=== PATIENT | male | born 1960 | race Caucasian/White ===

== ENCOUNTER 2017-02-01 21:15 | Emergency (ER) | payer OTHER ==
[2017-02-01] MEDS ORDERED: NS 0.9% 1000 ML* 1,000 ML IV ONE (21:24)
[2017-02-01 21:49] LABS: Hematocrit 43 % (42-52); Hemoglobin 14.3 g/dl (14.0-18.0); Mean Corpuscular HGB Conc 33 g/dl (31-36); Mean Corpuscular Hemoglobin 31 pg (27-31); Mean Corpuscular Volume 93 fL (80-94); Mean Platelet Volume 10 um3 (7.4-10.4); Red Blood Count 4.68 10^6/ul (4.0-5.4); Red Cell Distribution Width 14 % (10.5-15); White Blood Count 9.3 10^3/ul (3.5-10.8)
--- NOTE | 2017-02-01 21:51 | ED ---
Jordyn Taveras Rebecca, scribed for Manpreet Durbin MD on 02/01/17 at 2134 . Complex/Multi-Sys Presentation - HPI Summary HPI Summary: Pt is a 56 y/o M BIBA who presents to ED c/o dehydration, dizziness and generalized weakness. Sx began today at 1900 after riding his bike about 24 miles without drinking any water. Currently is not in any pain, ranking it as 0/ 10. EMS administered 650 mL of fluids, which improved sx. Pt reports he is feeling improved upon arrival to the ED. States he last ate this morning. 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[employer], Still Present Severity Currently: None - No pain Location: Negative Aggravating Factor(s): Nothing Alleviating Factor(s): IV Fluids by EMD en route to [facility] Associated Signs And Symptoms: Positive: Dizziness, Weakness - Generalized, Other - Dehydration - Allergies/Home Medications Allergies/Adverse Reactions: Allergies Allergy/AdvReac Type Severity Reaction Status Date / Time No Known Allergies Allergy Verified 12/21/15 16:02 PMH/Surg Hx/FS Hx/Imm Hx Endocrine/Hematology History: Denies: Hx Diabetes Cardiovascular History: Reports: Hx Coronary Artery Disease, Hx Myocardial Infarction Denies: Hx Congestive Heart Failure, Hx Hypertension GI History: Reports: Hx Obstructive Bowel - Previous SBO History: Denies: Hx Dialysis, Hx Renal Disease Musculoskeletal History: Reports: Hx Arthritis - Was seeing a PT for shoulder issues, Hx Back Problems - Fell out of a tree as a child, back problems since, Other Musculoskeletal History - DJD, right wrist carpal tunnel Sensory History: Reports: Hx Contacts or Glasses Opthamlomology History: Reports: Hx Contacts or Glasses Psychiatric History: Reports: Hx Depression - Lives at home, states being very depressed and lonely. Asked for SW consult - Immunization History Date of Tetanus Vaccine: unknown Infectious Disease History: Denies: Traveled Outside the [place] in Last 30 Days - Family History Known Family History: Positive: Other Family History: Sister - Elder-Danlos syndrome - Social History Alcohol Use: None Hx Substance Use: No Substance Use Type: Reports: None Smoking Status (MU): Light Every Day Tobacco Smoker Type: Cigarettes Amount Used/How Often: 1/2 pack per day Have You Smoked in the Last Year: Yes Review of Systems Positive: Other - Dehydration, generalized weakness Neurological: Other - Dizziness All Other Systems Reviewed And Are Negative: Yes Physical Exam Triage Information Reviewed: Yes Vital Signs On Initial Exam: Initial Vitals Temp Pulse Resp Pulse Ox 98 F 74 16 95 02/01/17 21:24 02/01/17 21:24 02/01/17 21:24 02/01/17 21:24 Vital Signs Reviewed: Yes Appearance: Positive: Well-Appearing, No Pain Distress Skin: Positive: Warm Head/Face: Positive: Normal Head/Face Inspection Eyes: Positive: KEYANNA ENT: Positive: Hearing grossly normal Neck: Positive: Supple Respiratory/Lung Sounds: Positive: Clear to Auscultation, Breath Sounds Present Cardiovascular: Positive: RRR Abdomen Description: Positive: Nontender, Soft Bowel Sounds: Positive: Present Musculoskeletal: Positive: Strength/ROM Intact Neurological: Positive: Alert, Oriented to Person Place, Time Psychiatric: Positive: Affect/Mood Appropriate Diagnostics - Vital Signs Vital Signs Temp Pulse Resp Pulse Ox 02/01/17 21:24 98 F 74 16 95 - Laboratory Result Diagrams: 02/01/17 21:40 02/01/17 21:40 Lab Statement: Any lab studies that have been ordered have been reviewed, and results considered in the medical decision making process. - EKG 2143 Cardiac Rate: NL - bpm EKG Rhythm: Sinus Rhythm EKG Interpretation: No STEMI Re-Evaluation - Re-Evaluation First Eval Re-Evaluation Time: 21:40 Change: Unchanged Comment: Further discussed the patient's symptoms and presentation with him. Second Eval Re-Evaluation Time: 22:11 Change: Improved Comment: Pt is feeling much better. Complex Multi-Symp Course/Dx Assessment/Plan: Pt is a 56 y/o M BIBA who presents to ED c/o dehydration, dizziness and generalized weakness since 1900 today after riding his bike about 24 miles without drinking any water. Currently is not in any pain, ranking it as 0/10. EMS administered 650 mL of fluids, which improved sx. Pt reports he is feeling improved upon arrival to the ED. States he last ate this morning. Labs within normal limits. EKG reveals no acute findings. Pt will be D/C to home with Dx of dehydration. He understands and agrees. Patient's medications reviewed this visit. - Diagnoses Provider Diagnoses: Dehydration Discharge - Discharge Plan Condition: Improved Disposition: HOME Patient Education Materials: Dehydration (ED) Referrals: Osmany Garcia MD [Primary Care Provider] - 3 Days The documentation as recorded by the Jordyn no Rebecca accurately reflects the service I personally performed and the decisions made by me, Manpreet Durbin MD.
[2017-02-01 22:04] LABS: Albumin 4.2 g/dL (3.2-5.2); BUN/Creatinine Ratio 9.6 (8-20); Calcium 8.9 mg/dL (8.6-10.3); EGFR African American 106.4 (>60); EGFR Non-African American 82.7 (>60); Globulin 2.8 g/dL (2-4); Magnesium 2.1 mg/dL (1.9-2.7); Potassium 3.9 mmol/L (3.5-5.0); Total Bilirubin 0.6 mg/dL (0.2-1.0)
[2017-02-01 22:11] VITALS: BP 121/72
== END 2017-02-01 22:18 | disposition home or self-care (01) ==
LOC: ED 21:15
DX: E86.0 Dehydration (principal); R42 Dizziness and giddiness; R53.1 Weakness; F17.210 Nicotine dependence, cigarettes, uncomplicated
CPT/HCPCS: 36415; 80053; 82550; 83605; 83735; 85025; 93005; 99283

== ENCOUNTER 2017-06-19 19:17 | Emergency (ER) | payer OTHER ==
[2017-06-19] MEDS ORDERED: Permethrin 5% CREAM* 1 APPLIC TUBE TOPICAL ONE (20:12)
[2017-06-19] MEDS ORDERED: hydrOXYzine HCL TAB* 50 MG PO ONE (20:15)
--- NOTE | 2017-06-19 20:26 | ED ---
Elin Taveras Thomas, scribed for Manav Bey MD on 06/19/17 at 2006 . Skin Complaint - HPI Summary HPI Summary: The pt is a 57 y/o M presenting to the ED c/o diffuse pruritus for the last few days that is worse at night. He found bed bugs in his mattress. He has some rash throughout his body. Pt denies any pain. - History of Current Complaint Chief Complaint: EDRashSkinAbscess Time Seen by Provider: 06/19/17 19:58 Stated Complaint: RASH ALL OVER Hx Obtained From: Patient Onset/Duration: Started Days Ago - last few days, Still Present Timing: Constant Current Severity: Moderate Pain Intensity: 0 Pain Scale Used: 0-10 Numeric Skin Location: Diffuse Character: Pruritus Associated Signs & Symptoms: Negative Related History: Other: - Patient discovered bed bugs in his mattress. - Allergy/Home Medications Allergies/Adverse Reactions: Allergies Allergy/AdvReac Type Severity Reaction Status Date / Time No Known Allergies Allergy Verified 06/19/17 19:39 PMH/Surg Hx/FS Hx/Imm Hx Previously Healthy: No Endocrine/Hematology History: Denies: Hx Diabetes Cardiovascular History: Reports: Hx Coronary Artery Disease, Hx Myocardial Infarction Denies: Hx Congestive Heart Failure, Hx Hypertension GI History: Reports: Hx Obstructive Bowel - Previous SBO History: Denies: Hx Dialysis, Hx Renal Disease Musculoskeletal History: Reports: Hx Arthritis - Was seeing a PT for shoulder issues, Hx Back Problems - Fell out of a tree as a child, back problems since, Other Musculoskeletal History - DJD, right wrist carpal tunnel Sensory History: Reports: Hx Contacts or Glasses Opthamlomology History: Reports: Hx Contacts or Glasses Psychiatric History: Reports: Hx Depression - Lives at home, states being very depressed and lonely. Asked for SW consult - Immunization History Date of Tetanus Vaccine: unknown Infectious Disease History: No Infectious Disease History: Denies: Traveled Outside the [place] in Last 30 Days - Family History Known Family History: Positive: Other - Elder-Danlos syndrome, ezcema - Social History Alcohol Use: None Hx Substance Use: No Substance Use Type: Reports: None Smoking Status (MU): Light Every Day Tobacco Smoker Type: Cigarettes Amount Used/How Often: 1/2 pack per day Have You Smoked in the Last Year: Yes Review of Systems Negative: Other - pain Positive: Rash, Other - Pruritus All Other Systems Reviewed And Are Negative: Yes Physical Exam - Summary Physical Exam Summary: VITAL SIGNS: Reviewed. GENERAL: Patient is a well-developed and nourished male who is lying comfortable in the stretcher. Patient is not in any acute respiratory distress. HEAD AND FACE: No signs of trauma. No ecchymosis, hematomas or skull depressions. No sinus tenderness. EYES: PERRLA, EOMI x 2, No injected conjunctiva, no nystagmus. EARS: Hearing grossly intact. Ear canals and tympanic membranes are within normal limits. MOUTH: Oropharynx within normal limits. NECK: Supple, trachea is midline, no adenopathy, no JVD, no carotid bruit, no c- spine tenderness, neck with full ROM. CHEST: Symmetric, no tenderness at palpation LUNGS: Clear to auscultation bilaterally. No wheezing or crackles. CVS: Regular rate and rhythm, S1 and S2 present, no murmurs or gallops appreciated. ABDOMEN: Soft, non-tender. No signs of distention. No rebound no guarding, and no masses palpated. Bowel sounds are normal. EXTREMITIES: FROM in all major joints, no edema, no cyanosis or clubbing. NEURO: Alert and oriented x 3. No acute neurological deficits. Speech is normal and follows commands. SKIN: Dry and warm. There is a fine rash over the surface of the extensors more than the flexors. The primary lesion is burrows and furrows. There are multiple erythematous papules. Triage Information Reviewed: Yes Vital Signs On Initial Exam: Initial Vitals Temp Pulse Resp BP Pulse Ox 97.7 F 63 18 132/94 97 06/19/17 19:34 06/19/17 19:34 06/19/17 19:34 06/19/17 19:34 06/19/17 19:34 Vital Signs Reviewed: Yes Diagnostics - Vital Signs Vital Signs Temp Pulse Resp BP Pulse Ox 06/19/17 19:34 97.7 F 63 18 132/94 97 - Laboratory Lab Statement: Any lab studies that have been ordered have been reviewed, and results considered in the medical decision making process. Course/Dx - Course Assessment/Plan: The pt is a 57 y/o M c/o diffuse pruritus for the last few days that is worse at night. He found bed bugs in his mattress. The patient is diagnosed with scabies. The patient is instructed to follow up with primary care if symptoms are not resolved with several applications of hydroxyzine. He was instructed to change his sheets. - Diagnoses Provider Diagnoses: Scabies Discharge - Discharge Plan Condition: Stable Disposition: HOME Prescriptions: hydrOXYzine HCL TAB* [Atarax TAB 50 MG *] 50 mg PO TID PRN #20 tab PRN Reason: Itching Patient Education Materials: Scabies (ED) Referrals: Osmany Garcia MD [Primary Care Provider] - Additional Instructions: Apply the cream all over your entire body except for your eyes, ears, nose, and mouth. Leave it on for 14-16 hours and then take a shower. Change your sheets. You may need more than one application of the cream for resolution of symptoms. If you symptoms do not resolve after several applications, you will need to get into contact with your private medical doctor and schedule an appointment. The documentation as recorded by the Elin no Thomas accurately reflects the service I personally performed and the decisions made by me, Manav Bey MD.
[2017-06-19 21:26] VITALS: BP 138/75
== END 2017-06-19 21:05 | disposition home or self-care (01) ==
LOC: ED 19:17
DX: B86 Scabies (principal); F32.9 Major depressive disorder, single episode, unspecified; M19.90 Unspecified osteoarthritis, unspecified site; F17.210 Nicotine dependence, cigarettes, uncomplicated; I25.10 Atherosclerotic heart disease of native coronary artery without angina pectoris; I21.9 Acute myocardial infarction, unspecified
CPT/HCPCS: 99282; A9270-GY

== ENCOUNTER 2017-07-06 15:59 | Emergency (ER) | payer OTHER ==
[2017-07-06] MEDS ORDERED: Permethrin 5% CREAM* 1 APPLIC TUBE TOPICAL ONE (17:37)
--- NOTE | 2017-07-06 17:39 | ED ---
Skin Complaint - HPI Summary HPI Summary: 57M presents with rash for past two weeks. he was diagnosed with scabies and states that he needs another treatment. He states the area is itchy and has not taken anything for it. He denies any history of ezcema. he denies any new products. no fever. no chest pain or SOB. states was re-exposed to scabies. - History of Current Complaint Chief Complaint: EDRashSkinAbscess Time Seen by Provider: 07/06/17 17:19 Stated Complaint: RASH Pain Intensity: 0 - Allergy/Home Medications Allergies/Adverse Reactions: Allergies Allergy/AdvReac Type Severity Reaction Status Date / Time No Known Allergies Allergy Verified 07/06/17 16:15 PMH/Surg Hx/FS Hx/Imm Hx Endocrine/Hematology History: Denies: Hx Diabetes Cardiovascular History: Reports: Hx Coronary Artery Disease, Hx Myocardial Infarction Denies: Hx Congestive Heart Failure, Hx Hypertension GI History: Reports: Hx Obstructive Bowel - Previous SBO History: Denies: Hx Dialysis, Hx Renal Disease Musculoskeletal History: Reports: Hx Arthritis - Was seeing a PT for shoulder issues, Hx Back Problems - Fell out of a tree as a child, back problems since, Other Musculoskeletal History - DJD, right wrist carpal tunnel Sensory History: Reports: Hx Contacts or Glasses Opthamlomology History: Reports: Hx Contacts or Glasses Psychiatric History: Reports: Hx Depression - Lives at home, states being very depressed and lonely. Asked for SW consult - Immunization History Date of Tetanus Vaccine: unknown Infectious Disease History: Unable to Obtain/Confirm Infectious Disease History: Denies: Traveled Outside the [place] in Last 30 Days - Family History Known Family History: Positive: None, Other - Elder-Danlos syndrome, ezcema Family History: Sister - Elder-Danlos syndrome - Social History Alcohol Use: None Hx Substance Use: No Substance Use Type: Reports: None Smoking Status (MU): Light Every Day Tobacco Smoker Type: Cigarettes Amount Used/How Often: 1/2 pack per day Have You Smoked in the Last Year: Yes Review of Systems Negative: Fever Negative: Chest Pain Negative: Shortness Of Breath Positive: Rash All Other Systems Reviewed And Are Negative: Yes Physical Exam Triage Information Reviewed: Yes Vital Signs On Initial Exam: Initial Vitals Temp Pulse Resp BP Pulse Ox 97.7 F 62 18 146/88 97 07/06/17 16:10 07/06/17 16:10 07/06/17 16:10 07/06/17 16:10 07/06/17 16:10 Vital Signs Reviewed: Yes Appearance: Positive: Well-Appearing Skin: Positive: Other - erythematous papular rash present some burrows present Head/Face: Positive: Normal Head/Face Inspection Eyes: Positive: Normal, Conjunctiva Clear Respiratory/Lung Sounds: Positive: Clear to Auscultation, Breath Sounds Present Cardiovascular: Positive: Normal, RRR Musculoskeletal: Positive: Normal Neurological: Positive: Normal Diagnostics - Vital Signs Vital Signs Temp Pulse Resp BP Pulse Ox 07/06/17 16:10 97.7 F 62 18 146/88 97 - Laboratory Lab Statement: Any lab studies that have been ordered have been reviewed, and results considered in the medical decision making process. Course/Dx - Course Course Of Treatment: 57M presents with rash for past two weeks. he was diagnosed with scabies and states that he needs another treatment. He states the area is itchy and has not taken anything for it. He denies any history of ezcema. he denies any new products. no fever. no chest pain or SOB. states was re-exposed to scabies. on exam has erythematous papular rash present some burrows present. will treat with permethrin and gave dose can repeat in 14 days. patient understand and agrees with plan. - Differential Diagnoses - Skin Complaint Differential Diagnoses: Contact Dermatitis, Eczema, Scabies - Diagnoses Provider Diagnoses: Scabies Discharge - Discharge Plan Condition: Good Disposition: HOME Prescriptions: Permethrin 5% CREAM* 1 applic TOPICAL SEE INSTRUCTIONS #1 tube Patient Education Materials: Scabies (ED) Referrals: Osmany Garcia MD [Primary Care Provider] - Additional Instructions: Thoroughly massage cream (30 g for average adult) from head to soles of feet; leave on for 8 to 14 hours before removing (shower or bath); also apply on the hairline, neck, scalp, restoration, and forehead may repeat if living mites are observed 14 days after first treatment: second script sent to pharmacy if need to be repeated in 14 days Follow up with primary Return to ED if develop any new or worsening symptoms
[2017-07-06 18:24] VITALS: BP 129/87
== END 2017-07-06 18:25 | disposition home or self-care (01) ==
LOC: ED 15:59
DX: B86 Scabies (principal); I25.10 Atherosclerotic heart disease of native coronary artery without angina pectoris; I21.9 Acute myocardial infarction, unspecified; F32.9 Major depressive disorder, single episode, unspecified; F17.210 Nicotine dependence, cigarettes, uncomplicated
CPT/HCPCS: 99282; A9270-GY

== ENCOUNTER 2017-09-04 21:18 | Emergency (ER) | payer OTHER ==
--- OUTSIDE RECORDS SUMMARY | 2017-09-04 21:34 | XMS REPORT ---
:1960 External Reference #:[id number] Author Organization [facility] Address [address] [address] Phone [phone] Care Team Providers Name Role Phone Gloria Cabral MD Care Team Information Mixing Picker Tender Unavailable Osmany Garcia MD Primary Care Physician Unavailable Payers Type Date Identification Numbers Payment Provider Subscriber Commercial Effective: Policy Number: [id number] Alconswetha Flores 2016 Group Name: [id number] [address] PayID: [id number] [place] [address] Medigap Part B Expires: 2016 Policy Number: [id number] Medicaid Bry Flores Group Name: 1 1 [address] PayID: [id number] [place] [address] Problems Date Description Provider Status Onset: 06/26/2016 Closed fracture of lumbar vertebra Osmany Garcia M.D. Active without spinal cord injury Onset: 06/26/2016 Low back pain Osmany Garcia M.D. Active Onset: 06/26/2016 Carpal tunnel syndrome of right wrist Osmany Garcia M.D. Active Onset: 07/03/2016 Anxiety state Osmany Garcia M.D. Active Onset: 07/03/2016 Chronic obstructive lung disease Osmany Garcia M.D. Active Family History Date Family Member(s) Problem(s) Comments General Heart Disease General Diabetes Father 73 he is in [place] in [place], he had tumor in the brain. he is an alcoholic. he has nothing to do with him. Mother mom is 70. she has Aodm . Third Brother three brothrs and one sister. sister has Erhler Danlos syndrome. she has seizures. One of the brother has diabetes. no cancer in the familly. Grandfather all . doesnot know much about them Social History Type Date Description Comments Marital Status Single Lives With Negative For Alone Occupation Unemployed Cigarette Use currently smokes 1/2 Pack Daily ETOH Use Has consumed alcohol in the past Smoking Patient is a current smoker, smokes 1 PPD - 35 years every day Daily Caffeine Consumes on average 3 cups of regular coffee per day Exercise Type/Frequency Exercises sporadically Exercise Type/Frequency rides his bike a lot mostly in warmer days Allergies, Adverse Reactions, Alerts Date Description Reaction Status Severity Comments 08/03/2009 NKDA active Medications Medication Date Status Form Strength Qnty SIG Indications Ordering Provider Hydroxyzine HCL 08/05/ Active Tablets 50mg 60tabs three B86 Amelia 2018 times/day Rodríguez, as needed DAIRY CONSULTANT for itching Elimite 08/05/ Active Cream 5% 60gm apply from Amelia 2018 head to Rodríguez, feet and DAIRY CONSULTANT wash off after 12-14 hours Nicotine 07/29/ Active Gum 2mg 50unit 1 piece of F17.210 Zsofia Polacrilex 2018 s gum q1-2hr Diallo MILEAGE CLERK Naproxen 07/29/ Active Tablets 500mg 120tab take one M48.00 Zsofia 2018 s tablet by Diallo, mouth MILEAGE CLERK twice a day with food as needed Vitamin D3 09/03/ Active Tablets 1000Unit 180tab take two Zsofia 2016 s tablets by Diallo, mouth MILEAGE CLERK every day Gabapentin / Active Capsules 300mg 90caps 1 by mouth M54.5 Zsofia 0000 three Diallo, times a MILEAGE CLERK day as needed Cyclobenzaprine / Active Tablets 10mg one by Unknown HCL 0000 mouth two times a day as needed spasm Nicotine 04/15/ Hx Gum 2mg 50unit 1 piece of F17.210 Zsofia Polacrilex 2016 - s gum q1-2hr Diallo, 07/29/ MILEAGE CLERK 2018 Escitalopram 09/03/ Hx Tablets 5mg 60tabs take 1 tab F41.9 Zsofia Oxalate 2017 - po daily Diallo, 09/03/ for one MILEAGE CLERK 2016 week then increase to 2 tabs daily Sertraline HCL 12/20/ Hx Tablets 25mg 60tabs Take Two F41.9 Zsofia 2016 - Tablets By Diallo, 05/20/ Mouth MILEAGE CLERK 2016 Every Day Escitalopram 07/03/ Hx Tablets 5mg 30tabs 1 by mouth F41.9 Osmany Oxalate 2015 - every day Pachikara 07/08/ x 1 week , M.D. 2015 then 2 tab daily Ibuprofen / Hx Tablets 600mg not using Unknown 0000 - prn 2016 Naproxen / Hx Not Unknown 0000 - usingAs 2016 Tramadol HCL / Hx Tablets 50mg 30tabs 1 tab 12h Osmany 0000 - as needed Lisaikara 12/10/ , Zachariah 2016 Immunizations CPT Code Status Date Vaccine Reaction Lot # [id number] Given 05/20/2017 Influenza Virus Vaccine, no immediate reaction, [id number] Quadrivalent, Split, pt tolerated well Preservative Free 32282 Given 04/15/2017 Influenza Virus Vaccine, [id number] Quadrivalent, Split, Preservative Free 51377 Given 02/04/2017 Pneumococcal Conjugate no immediate reaction [id number] Vaccine 13 Valent For noted and pt tolerated Intramuscular Use well Vital Signs Date Vital Result Comment 09/02/2017 Weight 150.00 lb Heart Rate 59 /min BP Systolic Sitting 122 mmHg BP Diastolic Sitting 78 mmHg O2 % BldC Oximetry 96 % 08/05/2017 Weight 150.00 lb Heart Rate 65 /min BP Systolic Sitting 130 mmHg BP Diastolic Sitting 71 mmHg O2 % BldC Oximetry 97 % 07/29/2017 Height 68.50 inches 5'8.50" Weight 157.00 lb Heart Rate 68 /min BP Systolic Sitting 134 mmHg BP Diastolic Sitting 78 mmHg Respiratory Rate 15 /min O2 % BldC Oximetry 97 % BMI (Body Mass Index) 23.5 kg/m2 05/20/2017 Height 68.50 inches 5'8.50" Weight 156.25 lb Heart Rate 66 /min BP Systolic 128 mmHg BP Diastolic 76 mmHg Body Temperature 98.3 F O2 % BldC Oximetry 98 % BMI (Body Mass Index) 23.4 kg/m2 04/15/2017 Weight 154.12 lb Heart Rate 74 /min BP Systolic Sitting 110 mmHg BP Diastolic Sitting 60 mmHg Body Temperature 97.7 F O2 % BldC Oximetry 97 % 02/04/2017 Weight 134.50 lb 02/04/2017 Weight 149.00 lb with shoes Heart Rate 72 /min BP Systolic 106 mmHg BP Diastolic 60 mmHg O2 % BldC Oximetry 97 % 12/10/2016 BP Systolic Sitting 128 mmHg BP Diastolic Sitting 64 mmHg 12/10/2016 Weight 152.50 lb Heart Rate 67 /min BP Systolic Sitting 152 mmHg BP Diastolic Sitting 80 mmHg Body Temperature 97.5 F O2 % BldC Oximetry 98 % 09/03/2016 Weight 138.12 lb Heart Rate 54 /min BP Systolic Sitting 142 mmHg BP Diastolic Sitting 80 mmHg Body Temperature 98.2 F O2 % BldC Oximetry 97 % 07/03/2016 Height 68.25 inches 5'8.25" Weight 140.00 lb Heart Rate 94 /min BP Systolic Sitting 108 mmHg BP Diastolic Sitting 62 mmHg Body Temperature 98.5 F O2 % BldC Oximetry 98 % BMI (Body Mass Index) 21.1 kg/m2 06/26/2016 Height 68.25 inches 5'8.25" Weight 143.25 lb Heart Rate 76 /min BP Systolic Sitting 170 mmHg BP Diastolic Sitting 82 mmHg Body Temperature 98.5 F O2 % BldC Oximetry 98 % BMI (Body Mass Index) 21.6 kg/m2 08/03/2009 Height 70.5 inches 5'10.50" Weight 145.00 lb Heart Rate 76 /min BP Systolic Sitting 118 mmHg BP Diastolic Sitting 78 mmHg BMI (Body Mass Index) 20.5 kg/m2 Results Test Date Test Result H/L Range Note Lipid Profile (Trig/Chol/HDL) 05/20/2017 Triglycerides 99 mg/dL 1 Cholesterol 182 mg/dL 2 HDL Cholesterol 33.6 mg/dL 3 LDL Cholesterol 129 mg/dL 4 Laboratory test finding 05/20/2017 Glucose 83 mg/dL 70-100 Comp Metabolic Panel 02/01/2017 Sodium 135 mmol/L 133-145 Potassium 3.9 mmol/L 3.5-5.0 Chloride 103 mmol/L 101-111 Co2 Carbon Dioxide 27 mmol/L 22-32 Anion Gap 5 mmol/L 2-11 Glucose 78 mg/dL 70-100 Blood Urea Nitrogen 9 mg/dL 6-24 Creatinine 0.94 mg/dL 0.67-1.17 BUN/Creatinine Ratio 9.6 8-20 Calcium 8.9 mg/dL 8.6-10.3 Total Protein 7.0 g/dL 6.4-8.9 Albumin 4.2 g/dL 3.2-5.2 Globulin 2.8 g/dL 2-4 Albumin/Globulin Ratio 1.5 1-3 Total Bilirubin 0.60 mg/dL 0.2-1.0 Alkaline Phosphatase 82 U/L 34-104 Alt 17 U/L 7-52 Ast 24 U/L 13-39 Egfr Non- 82.7 >60 Egfr 106.4 >60 5 Laboratory test finding 02/01/2017 Magnesium 2.1 mg/dL 1.9-2.7 Creatine Kinase(CK) 131 U/L 10-223 Laboratory test finding 02/01/2017 Lactic Acid 0.8 mmol/L 0.5-2.0 6 CBC Auto Diff 02/01/2017 White Blood Count 9.3 10^3/uL 3.5-10.8 Red Blood Count 4.68 10^6/uL 4.0-5.4 Hemoglobin 14.3 g/dL 14.0-18.0 Hematocrit 43 % 42-52 Mean Corpuscular Volume 93 fL 80-94 Mean Corpuscular Hemoglobin 31 pg 27-31 Mean Corpuscular HGB Conc 33 g/dL 31-36 Red Cell Distribution Width 14 % 10.5-15 Platelet Count 166 10^3/uL 150-450 Mean Platelet Volume 10 um3 7.4-10.4 Abs Neutrophils 5.7 10^3/uL 1.5-7.7 Abs Lymphocytes 2.5 10^3/uL 1.0-4.8 Abs Monocytes 0.8 10^3/uL 0-0.8 Abs Eosinophils 0.1 10^3/uL 0-0.6 Abs Basophils 0.1 10^3/uL 0-0.2 Abs Nucleated RBC 0 10^3/uL Granulocyte % 61.8 % 38-83 Lymphocyte % 26.7 % 25-47 Monocyte % 8.5 % 1-9 Eosinophil % 1.5 % 0-6 Basophil % 1.5 % 0-2 Nucleated Red Blood Cells % 0 Lipid Profile (Trig/Chol/HDL) 06/26/2016 Triglycerides 49 mg/dL 7 Cholesterol 156 mg/dL 8 HDL Cholesterol 41.7 mg/dL 9 LDL Cholesterol 105 mg/dL 10 Laboratory test finding 06/26/2016 PSA Screening 0.220 ng/mL 0-4.000 11 Comp Metabolic Panel 06/26/2016 Sodium 137 mmol/L 133-145 Potassium 4.1 mmol/L 3.5-5.0 Chloride 104 mmol/L 101-111 Co2 Carbon Dioxide 26 mmol/L 22-32 Anion Gap 7 mmol/L 2-11 Glucose 73 mg/dL 70-100 Blood Urea Nitrogen 8 mg/dL 6-24 Creatinine 1.05 mg/dL 0.67-1.17 BUN/Creatinine Ratio 7.6 Low 8-20 Calcium 9.7 mg/dL 8.6-10.3 Total Protein 7.4 g/dL 6.4-8.9 Albumin 4.5 g/dL 3.2-5.2 Globulin 2.9 g/dL 2-4 Albumin/Globulin Ratio 1.6 1-3 Total Bilirubin 0.70 mg/dL 0.2-1.0 Alkaline Phosphatase 82 U/L 34-104 Alt 14 U/L 7-52 Ast 26 U/L 13-39 Egfr Non- 72.8 >60 Egfr 93.6 >60 12 Laboratory test finding 06/26/2016 Vitamin D Total 25(Oh) 26.9 ng/mL Low 30-50 1 Desirable: <150 Borderline High: 150-199 High: 200-499 Very High: >500 2 Desirable: <200 Borderline High: 200-239 High: >239 3 Low: <40 Desirable: 40-60 High: >60 4 Desirable: <100 Near Optimal: 100-129 Borderline High: 130-159 High: 160-189 Very High: >189 5 Because ethnic data is not always readily available, this report includes an eGFR for both -Americans and non- Americans. The National Kidney Disease Education Program (NKDEP) does not endorse the use of the MDRD equation for patients that are not between the ages of 18 and 70, are , have extremes of body size, muscle mass, or nutritional status, or are non- or non-. According to the National Kidney Foundation, irrespective of diagnosis, the stage of the disease is based on the level of kidney function: Stage Description GFR(mL/min/1.73 m(2)) 1 Kidney damage with normal or decreased GFR 90 2 Kidney damage with mild decrease in GFR 60-89 3 Moderate decrease in GFR 30-59 4 Severe decrease in GFR 15-29 5 Kidney failure <15 (or dialysis) 6 [facility] Severe Sepsis and Septic Shock Management Bundle Measure requires all lactic acids initially measuring >2.0 mmol/L be repeated. 7 Desirable <150 Borderline high 150-199 High 200-499 Very High >500 8 Desirable <200 Borderline high 200-239 High >239 9 Low <40 Desirable: 40-60 High: >60 10 Desirable: <100 mg/dL Near Optimal: 100-129 mg/dL Borderline High: 130-159 mg/dL High: 160-189 mg/dL Very High: >189 mg/dL 11 Serum levels of PSA measured using the [employer] DXI Hybritech immunoassay should not be interpreted as absolute evidence of the presence or absence of disease. The PSA value should be used in conjunction with other pertinent clinical diagnostic procedures. A PSA value in the range of 0.1 to 0.6 ng/ml is indeterminate if being used as an indicator of recurrent or residual disease. The values obtained with different assay methods or kits cannot be used interchangeably. 12 Because ethnic data is not always readily available, this report includes an eGFR for both -Americans and non- Americans. The National Kidney Disease Education Program (NKDEP) does not endorse the use of the MDRD equation for patients that are not between the ages of 18 and 70, are , have extremes of body size, muscle mass, or nutritional status, or are non- or non-. According to the National Kidney Foundation, irrespective of diagnosis, the stage of the disease is based on the level of kidney function: Stage Description GFR(mL/min/1.73 m(2)) 1 Kidney damage with normal or decreased GFR 90 2 Kidney damage with mild decrease in GFR 60-89 3 Moderate decrease in GFR 30-59 4 Severe decrease in GFR 15-29 5 Kidney failure <15 (or dialysis) Procedures Date CPT Code Description Status 11/11/2012 27706 Nerve Conduction 03-04 Studies Completed 11/11/2012 90280 Needle Electromyography Complete, Five Or More Muscles Completed Studied Encounters Type Date Location Provider CPT E/M Dx Office Visit 08/12/2017 9:20a [facility] [place] [address] L23.9 I83.12 Office Visit 08/05/2017 10:50a [facility] - Amelia Marcos, DAIRY CONSULTANT [address] Office Visit 07/29/2017 10:20a [facility] - Zsofia Diallo, MILEAGE CLERK [address] M48.00 F17.210 M54.9 Office Visit 05/20/2017 9:00a [facility] Zsofia Diallo, [facility] [address] F17.210 [address] J44.9 F41.9 Z23 Office Visit 04/15/2017 8:00a [facility] - Zsofia Diallo, MILEAGE CLERK [address] F41.9 M54.5 M25.511 F17.210 Z23 Office Visit 02/04/2017 10:20a [facility] - Zsofia Diallo, MILEAGE CLERK [address] J44.9 F17.210 Z23 Office Visit 12/10/2016 1:30p [facility] - Zsofia Diallo, MILEAGE CLERK [address] J44.9 F17.210 Z13.220 Z13.1 M54.5 Office Visit 09/03/2016 3:30p [facility] - Zsofia Diallo, MILEAGE CLERK [address] M54.5 M25.511 J44.9 F17.210 Office Visit 07/03/2016 8:40a [facility] Osmany Garcia M.D. [address] M54.5 Medicine - [address] F41.9 J44.9 F17.210 Office Visit 06/26/2016 1:00p [facility] Osmany Garcia, [address] S32.[address]A Medicine - [address] MRaymondDRaymond M54.5 G56.01 Z00.00 Z13.220 Z12.5 Z13.1 Office Visit 11/25/2014 2:43p [facility], Mik Mercedes, [address]640 560.9 Hospitalists Zachariah 787.01 Office Visit 11/24/2014 2:43p [facility], Mik Mercedes, 04173 560.9 Hospitalists M.D. 787.01 Office Visit 11/23/2014 11:41a [facility],AGUSTINA Hawley [address]12 560.2 Hospitalists Office Visit 11/23/2014 2:42p [facility],mihsa Herman M.D. 05011 560.9 Hospitalists 787.01 Office Visit 11/15/2014 10:07a [facility],misha Arango, 11309 560.9 Hospitalists Zachariah 724.5 Office Visit 03/05/2011 3:30p [facility] Rodney Serna, [address] 805.4 Of [facility] Zachariah Office Visit 08/03/2009 10:00a DO Not Use [facility] Mandujanohavan, [address]23 719.41 Nathalie Soni V70.0 Plan of Care Future Appointment(s):10/14/2017 10:00 am - SHAZIA Sanchez at [facility] - [address]09/02/2017 - TINY SanchezPM48.00 Spinal stenosis, site unspecifiedComments:Please continue with PTWe discussed good postureMay take antiinflammatory pain medication as needed.Follow up:6 weeks for smoking cessation.F17.210 Nicotine dependence, cigarettes, uncomplicatedComments:We discussed to try getting completely off cigarettes in about a month.Since you are still under stress I recommend to try to taper by 1 cigarette every week.
[2017-09-04 22:41] LABS: ABS Basophils 0 10^3/ul (0-0.2); ABS Eosinophils 0.2 10^3/ul (0-0.6); ABS Lymphocytes 2.2 10^3/ul (1.0-4.8); ABS Monocytes 0.9 10^3/ul (0-0.8); ABS Neutrophils 6.1 10^3/ul (1.5-7.7); ABS Nucleated RBC 0 10^3/ul; Eosinophil % 2.4 % (0-6); Hematocrit 45 % (42-52); Hemoglobin 15.6 g/dl (14.0-18.0); Lymphocyte % 23.3 % (25-47); Mean Corpuscular HGB Conc 35 g/dl (31-36); Mean Corpuscular Hemoglobin 32 pg (27-31); Mean Corpuscular Volume 90 fL (80-94); Mean Platelet Volume 9 um3 (7.4-10.4); Nucleated Red Blood Cells % 0.1; Platelet Count 182 10^3/ul (150-450); Red Blood Count 4.95 10^6/ul (4.0-5.4); Red Cell Distribution Width 13 % (10.5-15); White Blood Count 9.4 10^3/ul (3.5-10.8)
[2017-09-04 22:58] LABS: EGFR Non-African American 83.5 (>60)
[2017-09-05 07:42] VITALS: BP 131/69
--- NOTE | 2017-09-06 22:45 | ED ---
Miguel A Taveras Jennifer scribed for Bradley Barnett MD on 09/04/17 at 2310 . Psychiatric Complaint - HPI Summary HPI Summary: The patient is a 57 year male who presents to the ED with anxiety and depression for a couple of years. He explains that he doesnt feel safe where he is staying because there are a lot of drugs and he thinks someone may hurt him. The patient has been living in a drug house for a couple of months. He denies suicidal ideation or hearing voices. The patient came to the ED because he wanted to speak with a social media editor. - History Of Current Complaint Chief Complaint: EDGeneral Time Seen by Provider: 09/04/17 21:45 Hx Obtained From: Patient Onset/Duration: Gradual Onset, Still Present - Couple years Timing: Constant Severity Initially: Mild Severity Currently: Mild Character: Depressed, Anxious Aggravating Factor(s): Nothing Alleviating Factor(s): Nothing Associated Signs And Symptoms: Negative: Hallucinating Has Suicidal: Denies: Thoughts, With A Plan Has Homicidal: Denies: Thoughts, With A Plan - Allergies/Home Medications Allergies/Adverse Reactions: Allergies Allergy/AdvReac Type Severity Reaction Status Date / Time No Known Allergies Allergy Verified 07/06/17 16:15 PMH/Surg Hx/FS Hx/Imm Hx Endocrine/Hematology History: Denies: Hx Diabetes Cardiovascular History: Reports: Hx Coronary Artery Disease, Hx Myocardial Infarction Denies: Hx Congestive Heart Failure, Hx Hypertension GI History: Reports: Hx Obstructive Bowel - Previous SBO History: Denies: Hx Dialysis, Hx Renal Disease Musculoskeletal History: Reports: Hx Arthritis - Was seeing a PT for shoulder issues, Hx Back Problems - Fell out of a tree as a child, back problems since, Other Musculoskeletal History - DJD, right wrist carpal tunnel Sensory History: Reports: Hx Contacts or Glasses Opthamlomology History: Reports: Hx Contacts or Glasses Psychiatric History: Reports: Hx Depression - Lives at home, states being very depressed and lonely. Asked for SW consult - Immunization History Date of Tetanus Vaccine: unknown Infectious Disease History: No Infectious Disease History: Denies: Traveled Outside the [place] in Last 30 Days - Family History Known Family History: Positive: Other - Elder-Danlos syndrome, ezcema Family History: Sister - Elder-Danlos syndrome - Social History Alcohol Use: None Hx Substance Use: No Substance Use Type: Reports: None Smoking Status (MU): Light Every Day Tobacco Smoker Type: Cigarettes Amount Used/How Often: 1/2 pack per day Have You Smoked in the Last Year: Yes Review of Systems Negative: Fever, Chills, Skin Diaphoresis Negative: Erythema Negative: Sore Throat Negative: Chest Pain Negative: Shortness Of Breath, Cough Negative: Abdominal Pain, Vomiting, Nausea Negative: dysuria, hematuria Negative: Myalgia, Edema Negative: Rash Neurological: Negative - Dizziness Positive: Anxious, Depressed All Other Systems Reviewed And Are Negative: Yes Physical Exam - Summary Physical Exam Summary: Constitutional: Well-developed, Well nourished, Alert. (-) Distressed Skin: Warm, Dry HENT: Normocephalic; Atraumatic Eyes: Conjunctiva normal Neck: Musculoskeletal ROM normal neck. (-) JVD, (-) Stridor, (-) Tracheal deviation Cardio: Rhythm regular, rate normal, Heart sounds normal; Intact distal pulses; The pedal pulses are 2+ and symmetric. Radial pulses are 2+ and symmetric. (-) Murmur Pulmonary/Chest wall: Effort normal. (-) Respiratory distress, (-) Wheezes, (-) Rales Abd: Soft, (-) Tenderness, (-) Distension, (-) Guarding, (-) Rebound Musculoskeletal: (-) Edema Lymph: (-) Cervical adenopathy Neuro: Alert, Oriented x3 Psych: Mood and affect Normal Triage Information Reviewed: Yes Vital Signs On Initial Exam: Initial Vitals Temp Pulse Resp BP Pulse Ox 98.1 F 77 18 162/84 97 09/04/17 21:22 09/04/17 21:22 09/04/17 21:22 09/04/17 21:22 09/04/17 21:22 Vital Signs Reviewed: Yes Diagnostics - Vital Signs Vital Signs Temp Pulse Resp BP Pulse Ox 09/04/17 21:22 98.1 F 77 18 162/84 97 - Laboratory Result Diagrams: 09/04/17 22:30 09/04/17 22:30 Lab Statement: Any lab studies that have been ordered have been reviewed, and results considered in the medical decision making process. Course/Dx - Course Assessment/Plan: The patient is a 57 year male who presents to the ED with anxiety and depression for a couple of years. Bloodwork and Urinalysis were obtained. Psych evaluation for profound depression and possibly long-term placement. The patient is diagnosed with homelessness and depression. Pending disposition by psych. Psych will take the patient to [facility]. Pending safe discharge to brother. - Differential Dx/Clinical Impression Provider Diagnosis: Homelessness, Depression Discharge - Discharge Plan Condition: Stable Disposition: OTHER Discharge Disposition Comment: Patient was taken to [facility] by psych. Pending safe discharge to brother. Referrals: Osmany Garcia MD [Primary Care Provider] - The documentation as recorded by the Miguel A no Jennifer accurately reflects the service I personally performed and the decisions made by , Bradley Barnett MD.
== END 2017-09-05 07:40 ==
LOC: ED 21:18
DX: F32.9 Major depressive disorder, single episode, unspecified (principal); Z59.0 Homelessness; F17.210 Nicotine dependence, cigarettes, uncomplicated
CPT/HCPCS: 36415; 80053; 80320; 80329; 84443; 85025; 99284; G0480

== ENCOUNTER → 2017-12-16 10:16 | Emergency (ER) | payer OTHER ==
[2017-12-16 11:22] VITALS: BP 122/63
--- OUTSIDE RECORDS SUMMARY | 2017-12-17 13:03 | XMS REPORT ---
:1960 External Reference #:[id number] Author Organization [facility] Address [address] [place] [address] Phone [phone] Care Team Providers Name Role Phone Osmany Garcia M.D. Primary Care Physician Unavailable Payers Type Date Identification Numbers Payment Provider Subscriber Commercial Policy Number: [id number] [employer] Medicaid [place] Bry Flores PayID: [id number] 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 ETOH Use Denies alcohol use Smoking Heavy tobacco smoker (more than 10 cigarettes/day) Recreational Drug Use Denies Drug Use Daily Caffeine Consumes on average 2 cups of regular coffee per day Allergies, Adverse Reactions, Alerts Date Description Reaction Status Severity Comments 12/16/2017 NKDA active Medications Medication Date Status Form Strength Qnty SIG Indications Ordering Provider Naproxen Active Tablets 250mg Unknown No Active 12/16/2017 Hx Unknown Medications - 12/16/2017 Results Description No Information Procedures Description No Information Plan of Care 12/16/2017 - Evaristo Angel M.D.H25.13 Age-related nuclear cataract, bilateralComments:Smoking can increase the risk of developing or worsening any eye related disease, as well as affect your overall health. If you are a smoker , we strongly recommend that you quit.If you are not a smoker, we strongly recommend that you do not start. You have been diagnosed with cataracts. They are limiting your vision, and I am unable to improve you with new glasses. Our next step is to schedule Cataract surgery and all necessary appointments, which Mauro will do for you. We recommend that you write down any questions you may have and bring them to your preoperative appointment so thatDr. Angel can answer them for you. If you have any questions or concerns , you can reach Gisela Allen at .Follow up:For preop exam before surgery.
--- NOTE | 2017-12-17 21:09 | ED ---
Jordyn Taveras Rebecca, scribed for Ronnie Cid MD on 12/16/17 at 1037 . Throat Pain/Nasal Congestion - HPI Summary HPI Summary: Pt is a 57 y/o M who presents to ED c/o blurred vision. His vision has been blurred in the left eye for about 1 month, gradually worsening. There is no associated pain. Sx aggravated and alleviated by nothing. Additionally c/o floaters, stating that he "sees little black things." Denies any weakness, difficulty ambulating. Wears corrective glasses. SHx current smoker. - History of Current Complaint Chief Complaint: EDEyeProblem Time Seen by Provider: 12/16/17 10:31 Hx Obtained From: Patient Onset/Duration: Lasting Weeks, Still Present Associated Signs And Symptoms: Positive: Negative Cough: None Related History: Other (Noted In Comments) - Wears glasses - Allergies/Home Medications Allergies/Adverse Reactions: Allergies Allergy/AdvReac Type Severity Reaction Status Date / Time No Known Allergies Allergy Verified 12/16/17 10:24 PMH/Surg Hx/FS Hx/Imm Hx Endocrine/Hematology History: Denies: Hx Diabetes Cardiovascular History: Reports: Hx Coronary Artery Disease, Hx Myocardial Infarction Denies: Hx Congestive Heart Failure, Hx Hypertension GI History: Reports: Hx Obstructive Bowel - Previous SBO History: Denies: Hx Dialysis, Hx Renal Disease Musculoskeletal History: Reports: Hx Arthritis - Was seeing a PT for shoulder issues, Hx Back Problems - Fell out of a tree as a child, back problems since, Other Musculoskeletal History - DJD, right wrist carpal tunnel Sensory History: Reports: Hx Contacts or Glasses Opthamlomology History: Reports: Hx Contacts or Glasses Neurological History: Reports: Other Neuro Impairments/Disorders - chronic back pain Psychiatric History: Reports: Hx Depression - Lives at home, states being very depressed and lonely. Asked for SW consult Denies: Hx Eating Disorder, Hx of Violent Episodes Against Others - Immunization History Date of Tetanus Vaccine: unknown Infectious Disease History: No Infectious Disease History: Denies: Traveled Outside the [place] in Last 30 Days - Family History Known Family History: Positive: Other - Elder-Danlos syndrome, ezcema Family History: Sister - Elder-Danlos syndrome - Social History Alcohol Use: None Hx Substance Use: No Substance Use Type: Reports: None Smoking Status (MU): Light Every Day Tobacco Smoker Type: Cigarettes Amount Used/How Often: 1/2 pack per day Have You Smoked in the Last Year: Yes Review of Systems Negative: Fever Positive: Blurred Vision - left ete, Other - Floaters - left eye Neurological: Other - NEGATIVE: Difficulty ambulating Negative: Weakness All Other Systems Reviewed And Are Negative: Yes Physical Exam - Summary Physical Exam Summary: VITAL SIGNS: Reviewed. GENERAL: Patient is a well-developed and nourished male who is lying comfortable in the stretcher. Patient is not in any acute respiratory distress. HEAD AND FACE: No signs of trauma. No ecchymosis, hematomas or skull depressions. No sinus tenderness. EYES: PERRLA, EOMI x 2, No injected conjunctiva, no nystagmus. On the fundoscopic examination, on the left eye, there is only a dark area without any vessels. The right eye is normal. EARS: Hearing grossly intact. Ear canals and tympanic membranes are within normal limits. MOUTH: Oropharynx within normal limits. NECK: Supple, trachea is midline, no adenopathy, no JVD, no carotid bruit, no c- spine tenderness, neck with full ROM. CHEST: Symmetric, no tenderness at palpation LUNGS: Clear to auscultation bilaterally. No wheezing or crackles. CVS: Regular rate and rhythm, S1 and S2 present, no murmurs or gallops appreciated. EXTREMITIES: FROM in all major joints, no edema, no cyanosis or clubbing. NEURO: Alert and oriented x 3. No acute neurological deficits. Speech is normal and follows commands. SKIN: Dry and warm Triage Information Reviewed: Yes Vital Signs On Initial Exam: Initial Vitals Temp Pulse Resp BP Pulse Ox 97.5 F 57 18 148/84 99 12/16/17 10:21 12/16/17 10:21 12/16/17 10:21 12/16/17 10:21 12/16/17 10:21 Vital Signs Reviewed: Yes Diagnostics - Vital Signs Vital Signs Temp Pulse Resp BP Pulse Ox 12/16/17 10:21 97.5 F 57 18 148/84 99 - Laboratory Lab Statement: Any lab studies that have been ordered have been reviewed, and results considered in the medical decision making process. Re-Evaluation - Re-Evaluation First Eval Re-Evaluation Time: 10:55 Comment: Discussed consultation and discharge plan. EENT Course/Dx - Course Assessment/Plan: This patient is a 49-year-old male with past medical history significant for small bowel obstruction, chronic back pain, nicotine abuse. He presents to the emergency room with a chief complaint of blurred vision and decreased vision in the left eye approximately one month. In the physical exam in the left funduscopic exam is abnormal. He has no other deficits. Patient is neurological intact. I discussed the case with Dr. Eastman the salad counter attendant and she requests for the patient to be transferred to the office for a dilated funduscopic exam. I discussed the plan with the patient and he agrees. Patient was discharged to Dr. Cortez office. - Diagnoses Provider Diagnoses: Vision loss of left eye - Provider Notifications Discussed Care Of Patient With: Paloma Freire O.D. Time Discussed With Above Provider: 10:50 Instructed by Provider To: Other - Advised that he be referred to Dr. Perez's office immediately upon discharge. Discharge - Sign-Out/Discharge Documenting (check all that apply): Discharge/Admit/Transfer - Discharge - Discharge Plan Condition: Stable Disposition: HOME Patient Education Materials: Blurred Vision (ED) Referrals: Partha Perez MD [Medical Doctor] - (Immediately) Osmany Garcia MD [Primary Care Provider] - 3 Days Additional Instructions: Upon being discharged, go immediately to [facility] for evaluation. RETURN TO ED FOR ANY NEW OR WORSENING SYMPTOMS. The documentation as recorded by the Jordyn no Rebecca accurately reflects the service I personally performed and the decisions made by , Ronnie Cid MD.
== END | disposition home or self-care (01) ==
LOC: ED 10:16
DX: H54.7 Unspecified visual loss (principal); M54.9 Dorsalgia, unspecified; G89.29 Other chronic pain; F17.210 Nicotine dependence, cigarettes, uncomplicated; Z87.19 Personal history of other diseases of the digestive system
CPT/HCPCS: 99282

== ENCOUNTER 2018-03-09 22:02 | Emergency (ER) | payer OTHER ==
--- OUTSIDE RECORDS SUMMARY | 2018-03-09 22:22 | XMS REPORT ---
:1960 External Reference #:[id number] Author Organization [employer] Address [address] [place] [address] Phone [phone] Care Team Providers Name Role Phone Gloria Cabral MD Care Team Information Webmethods Consultant Unavailable Osmany Garcia MD Primary Care Physician Unavailable Payers Type Date Identification Numbers Payment Provider Subscriber Commercial Effective: Policy Number: [id number] [place] 2016 Group Number: [id number] [address] PayID: [id number] [place] [address] Medigap Part B Expires: 2016 Policy Number: [id number] Medicaid Bry Flores Group Name: 1 1 [address] PayID: [id number] [place] [address] Problems Date Description Provider Status Onset: 06/26/2016 [...] General Diabetes Father 73 he is in [place] in [place], he had tumor in the brain. he [...] Has consumed alcohol in the past Smoking Light tobacco smoker (10 or fewer cigarettes/day) Daily Caffeine Consumes on average 3 cups of regular coffee per day Exercise Type/Frequency Exercises sporadically Exercise Type/Frequency rides his bike a lot mostly in warmer days Allergies, Adverse Reactions, Alerts Date Description Reaction Status Severity Comments 08/03/2009 NKDA active Medications Medication Date Status Form Strength Qnty SIG Indications Ordering Provider Cane/Aluminum/Adj 10/28/ Active Misc 1unit use with M48.00 Zsofia ustable/Mens 2018 s ambulation Diallo, Handle MANAGER INPATIENT Hydroxyzine HCL 08/05/ Active Tablets 50mg 60tab three F41.9 Amelia 2018 s times/day Rodríguez, as needed [employer] for itching Nicotine 07/29/ Active Gum 2mg 50uni 1 piece of F17.210 Zsofia Polacrilex 2018 ts gum q1-2hr Diallo, MANAGER INPATIENT Naproxen 07/29/ Active Tablets 500mg 120ta take one M48.00 Zsofia 2018 bs tablet by Diallo, mouth twice MANAGER INPATIENT a day with food as needed Vitamin D3 09/03/ Active Tablets 1000Unit 180ta ( takes in E55.9 Zsofia 2017 bs the winter) Diallo, take two MANAGER INPATIENT tablets by mouth every day Elimite 08/05/ Hx Cream 5% 60gm apply from B86 Amelia 2018 - head to Rodríguez, 01/13/ feet and [employer] 2017 wash off after 12-14 hours Nicotine 04/15/ Hx Gum 2mg 50uni 1 piece of F17.210 Zsofia Polacrilex 2016 - ts gum q1-2hr Diallo, 07/29/ MANAGER INPATIENT 2018 Escitalopram 09/03/ Hx Tablets 5mg 60tab take 1 tab F41.9 Zsofia Oxalate 2017 - s po daily Diallo, 09/03/ for one MANAGER INPATIENT 2016 week then increase to 2 tabs daily Sertraline HCL 07/08/ Hx Tablets 25mg 60tab Take Two F41.9 Zsofia 2016 - s Tablets By Diallo, 05/20/ Mouth Every MANAGER INPATIENT 2017 Day Escitalopram 07/03/ Hx Tablets 5mg 30tab 1 by mouth F41.9 Osmany Oxalate 2016 - s every day x Pachikara week then , MSaleem 2015 2 tab daily Ibuprofen / Hx Tablets 600mg not using Unknown 0000 - prn 2016 Naproxen / Hx Not usingAs Unknown 0000 - directed 2016 Tramadol HCL / Hx Tablets 50mg 30tab 1 tab 12h [place] 0000 - s as needed Lisaikara , MSaleem 2016 Gabapentin / Hx Capsules 300mg 90cap 1 by mouth M54.5 Zsofia 0000 - s three times Diallo, 10/28/ a day as MANAGER INPATIENT 2018 needed Cyclobenzaprine / Hx Tablets 10mg one by Unknown HCL 0000 - mouth two 01/01/ times a day 2018 as needed spasm Immunizations CPT Code Status Date Vaccine Reaction Lot # [id number] Given 05/20/2017 Influenza Virus Vaccine, no immediate reaction, [id number] Quadrivalent, Split, pt tolerated well Preservative Free [id number] Given 04/15/2017 Influenza Virus Vaccine, [id number] Quadrivalent, Split, Preservative Free 48954 Given 02/04/2017 Pneumococcal Conjugate no immediate reaction [id number] Vaccine 13 Valent For noted and pt tolerated Intramuscular Use well Vital Signs Date Vital Result Comment 03/08/2018 Height 68.5 inches 5'8.50" Weight 136.38 lb Heart Rate 69 /min BP Systolic 100 mmHg BP Diastolic 60 mmHg Body Temperature 97.6 F O2 % BldC Oximetry 96 % BMI (Body Mass Index) 20.4 kg/m2 01/14/2018 Height 68.5 inches 5'8.50" Weight 141.00 lb Heart Rate 54 /min BP Systolic Sitting 122 mmHg BP Diastolic Sitting 70 mmHg Body Temperature 95.7 F 95.1 other ear O2 % BldC Oximetry 98 % BMI (Body Mass Index) 21.1 kg/m2 01/01/2018 Height 68.5 inches 5'8.50" Weight 140.12 lb Heart Rate 89 /min BP Systolic Sitting 126 mmHg BP Diastolic Sitting 78 mmHg O2 % BldC Oximetry 97 % BMI (Body Mass Index) 21.0 kg/m2 10/28/2017 Weight 152.12 lb Heart Rate 109 /min BP Systolic Sitting 132 mmHg BP Diastolic Sitting 78 mmHg Body Temperature 98.3 F O2 % BldC Oximetry 96 % 09/02/2017 Weight 150.00 lb Heart Rate 59 [...] Test Date Test Result H/L Range Note CBC Auto Diff 09/04/2017 White Blood Count 9.4 10^3/uL 3.5-10.8 Red Blood Count 4.95 10^6/uL 4.0-5.4 Hemoglobin 15.6 g/dL 14.0-18.0 Hematocrit 45 % 42-52 Mean Corpuscular Volume 90 fL 80-94 Mean Corpuscular Hemoglobin 32 pg High 27-31 Mean Corpuscular HGB Conc 35 g/dL 31-36 Red Cell Distribution Width 13 % 10.5-15 Platelet Count 182 10^3/uL 150-450 Mean Platelet Volume 9 um3 7.4-10.4 Abs Neutrophils 6.1 10^3/uL 1.5-7.7 Abs Lymphocytes 2.2 10^3/uL 1.0-4.8 Abs Monocytes 0.9 10^3/uL High 0-0.8 Abs Eosinophils 0.2 10^3/uL 0-0.6 Abs Basophils 0 10^3/uL 0-0.2 Abs Nucleated RBC 0 10^3/uL Granulocyte % 64.5 % 38-83 Lymphocyte % 23.3 % Low 25-47 Monocyte % 9.5 % High 1-9 Eosinophil % 2.4 % 0-6 Basophil % 0.3 % 0-2 Nucleated Red Blood Cells % 0.1 Lipid Profile (Trig/Chol/HDL) 05/20/2017 Triglycerides 99 mg/dL [...] 5 Kidney failure <15 (or dialysis) 6 [place] Severe Sepsis and Septic Shock Management Bundle [...] Serum levels of PSA measured using the Shogether DXI Hybritech immunoassay should not be interpreted [...] dialysis) Procedures Date CPT Code Description Status Comment 12/18/2017 Diabetic Retinal Eye Exam Completed Document: 12/18/17 - Consult Ophthalmology - David Document: 12/18/17 - Consult Ophthalmology - David 12/16/2017 Diabetic Retinal Eye Exam Completed Document: 12/16/17 - Consult Ophthalmology/Stanley 11/11/2012 17811 Nerve Conduction 03-04 Completed Studies 11/11/2012 14418 Needle Electromyography Completed Complete, Five Or More Muscles Studied Encounters Type Date Location Provider CPT E/M Dx Office Visit 01/14/2018 [facility] Osmany Garcia, 26846 Z01.818 3:00p Medicine - [address] M.D. Office Visit 01/01/2018 [facility] Juan Carlos Landrum, MANAGER INPATIENT 81658 H26.9 3:20p Medicine - [address] Z12.11 K02.9 F41.9 J44.9 F17.210 R63.4 Office Visit 10/28/2017 11:40a [facility] Medicine Juan Carlos Landrum, MANAGER INPATIENT 29483 M48.00 - [address] F17.210 J44.9 F41.9 E55.9 M54.5 Office Visit 09/02/2017 10:00a [facility] Medicine Juan Carlos Landrum, MANAGER INPATIENT 54194 M48.00 - [address] F17.210 M54.5 Office Visit 08/12/2017 9:20a [facility] [place] [address] L23.9 I83.12 Office Visit 08/05/2017 10:50a [facility] Medicine - [place]elia Rodrí[place] [address] Office Visit 07/29/2017 10:20a [facility] Medicine - Juan Carlos Landrum, MANAGER INPATIENT [address] M48.00 F17.210 M54.9 Office Visit 05/20/2017 9:00a [facility] Medicine Juan Carlos Landrum, MANAGER INPATIENT 35968 F17.210 - [address] J44.9 F41.9 Z23 Office Visit 04/15/2017 8:00a [facility] Medicine - Juan Carlos Landrum, MANAGER INPATIENT [address] F41.9 M54.5 M25.511 F17.210 Z23 Office Visit 02/04/2017 10:20a [facility] Medicine - Juan Carlos Landrum, MANAGER INPATIENT [address] J44.9 F17.210 Z23 Office Visit 12/10/2016 1:30p [facility] Medicine - Zsofia Diallo, MANAGER INPATIENT [address] J44.9 F17.210 Z13.220 Z13.1 M54.5 Office Visit 09/03/2016 3:30p [facility] Medicine - Zsofia Diallo, MANAGER INPATIENT [address] M54.5 M25.511 J44.9 F17.210 Office Visit 07/03/2016 8:40a [facility] Osmany Garcia M.D. 42641 M54.5 Medicine - [address] F41.9 J44.9 F17.210 Office Visit 06/26/2016 1:00p [facility] Osmany Garcia, 92680 S32.001A Medicine - [address] Zachariah M54.5 G56.01 Z00.00 Z13.220 Z12.5 Z13.1 Office Visit 11/25/2014 2:43p [facility], Mik Mercedes, 35095 560.9 Hospitalists MSaleem 787.01 Office Visit 11/24/2014 2:43p [facility], Mik Mercedes, 91728 560.9 Hospitalists MSaleem 787.01 Office Visit 11/23/2014 11:41a [facility], AGUSTINA Sanchez 94314 560.2 Hospitalists Office Visit 11/23/2014 2:42p [facility], Kali Herman M.D. 47888 560.9 Hospitalists 787.01 Office Visit 11/15/2014 10:07a [facility], Teagan Arango, 73115 560.9 Hospitalists MSaleem 724.5 Office Visit 03/05/2011 3:30p Neurosurgery Services Rodney Serna, 77113 805.4 Of Michelle Soni Office Visit 08/03/2009 10:00a DO Not Use [facility] AT [facility] Sukhjinder, 20318 719.41 Nathalie Soni V70.0 Plan of Care Future Appointment(s):03/24/2018 2:30 pm - Megan Holly, RPA-C at [facility] Medicine - [address]03/08/2018 - Megan Holly RPA-CZ01.818 Encounter for other preprocedural examinationFollow up:Try to decrease smoking prior to surgery. If you can avoid smoking for at least a week after surgeryyou will improve your eyes' healing. Follow up appointment for back in 2-3 weeks.K02.9 Dental caries, unspecifiedFollow up:Call if develop tooth pain, swelling around mouth.R51 HeadacheFollow up:Return to clinic if symptoms do no improve after surgery.
[2018-03-10] MEDS ORDERED: Lidocaine 4% TOPICAL* 50 ML TOP.SOLN TOPICAL ONE (01:14)
--- NOTE | 2018-03-10 01:15 | ED ---
Back Pain - HPI Summary HPI Summary: This patient is a 57 year old M presenting to [facility] with a chief complaint of acute on chronic low back pain. The patient rates the pain 8/10 in severity. Symptoms aggravated by nothing. Symptoms alleviated by nothing. Patient reports headache, chills, difficulty sleeping, and blurred vision (due to cataracts). Patient denies numbness, bladder symptoms, and bowel symptoms. - History of Current Complaint Chief Complaint: EDBackInjuryPain Stated Complaint: HEADACHE/BACK PAIN Time Seen by Provider: 03/10/18 01:08 Hx Obtained From: Patient Onset/Duration: Sudden Onset, Lasting Weeks, Still Present Onset/Duration: Started Weeks Ago, Still Present Timing: Constant Back Pain Location: Is Diffuse Severity Initially: Severe Severity Currently: Severe Pain Intensity: 8 Pain Scale Used: 0-10 Numeric Aggravating Symptom(s): Nothing Alleviating Symptom(s): Nothing Associated Signs And Symptoms: Positive: Other - Positive headache, chills, difficulty sleeping, and blurred vision (due to cataracts). Negative numbness, bladder symptoms, and bowel symptoms. - Allergies/Home Medications Allergies/Adverse Reactions: Allergies Allergy/AdvReac Type Severity Reaction Status Date / Time No Known Allergies Allergy Verified 03/09/18 22:12 PMH/Surg Hx/FS Hx/Imm Hx Previously Healthy: No Endocrine/Hematology History: Denies: Hx Diabetes Cardiovascular History: Reports: Hx Coronary Artery Disease, Hx Myocardial Infarction Denies: Hx Congestive Heart Failure, Hx Hypertension GI History: Reports: Hx Obstructive Bowel - Previous SBO History: Denies: Hx Dialysis, Hx Renal Disease Musculoskeletal History: Reports: Hx Arthritis - Was seeing a PT for shoulder issues, Hx Back Problems - Fell out of a tree as a child, back problems since, Other Musculoskeletal History - DJD, right wrist carpal tunnel Sensory History: Reports: Hx Cataracts, Hx Contacts or Glasses Opthamlomology History: Reports: Hx Contacts or Glasses Neurological History: Reports: Other Neuro Impairments/Disorders - chronic back pain Psychiatric History: Reports: Hx Anxiety, Hx Depression - Lives at home, states being very depressed and lonely. Asked for SW consult Denies: Hx Eating Disorder, Hx of Violent Episodes Against Others - Immunization History Date of Tetanus Vaccine: unknown Infectious Disease History: No Infectious Disease History: Denies: Traveled Outside the [place] in Last 30 Days - Family History Known Family History: Positive: Other - Elder-Danlos syndrome, zuri Family History: Sister - Elder-Danlos syndrome - Social History Occupation: Unemployed Lives: Jail Alcohol Use: None Hx Substance Use: No Substance Use Type: Reports: None Hx Tobacco Use: Yes Smoking Status (MU): Light Every Day Tobacco Smoker Type: Cigarettes Amount Used/How Often: 1/2 pack per day Have You Smoked in the Last Year: Yes Review of Systems Positive: Chills Positive: Blurred Vision Gastrointestinal: Negative Positive: no symptoms reported Positive: Other - Positive back pain Positive: Headache. Negative: Numbness Positive: Other - Positive difficulty sleeping All Other Systems Reviewed And Are Negative: Yes Physical Exam - Summary Physical Exam Summary: Appearance: Well-appearing, Well-nourished, lying in bed comfortably Skin: Warm, dry, no obvious rash Eyes: sclera anicteric, no conjunctival pallor ENT: mucous membranes moist, pharynx appears normal Neck: Supple, nontender Respiratory: Clear to auscultation, no signs of respiratory distress Cardiovascular: Normal S1, S2. No murmurs. Normal distal pulses in tibial and radial bilaterally. Abdomen: Soft, nontender, normal active bowel sounds present Musculoskeletal: Normal, Strength/ROM Intact. Good strength in lower extremities Neurological: A&Ox3, awake and alert, mentation is normal, speech is fluent and appropriate Psychiatric: affect is normal, does not appear anxious or depressed Triage Information Reviewed: Yes Vital Signs On Initial Exam: Initial Vitals Temp Pulse Resp BP Pulse Ox 98.3 F 71 20 162/100 98 03/09/18 22:10 03/09/18 22:10 03/09/18 22:10 03/09/18 22:10 03/09/18 22:10 Vital Signs Reviewed: Yes Diagnostics - Vital Signs Vital Signs Temp Pulse Resp BP Pulse Ox 03/10/18 00:12 98.9 F 70 18 157/76 98 03/09/18 22:10 98.3 F 71 20 162/100 98 - Laboratory Lab Statement: Any lab studies that have been ordered have been reviewed, and results considered in the medical decision making process. Back Pain Course/Dx - Diagnoses Provider Diagnoses: Chronic back pain, Tobacco abuse Discharge - Sign-Out/Discharge Documenting (check all that apply): Patient Departure - Discharge Plan Condition: Good Disposition: HOME Prescriptions: Lidocaine PATCH 5%* [Lidoderm 5% Patch*] 1 patch TRANSDERM DAILY #30 patch Patient Education Materials: Chronic Back Pain (ED) Referrals: Osmany Garcia MD [Primary Care Provider] - - Billing Disposition and Condition Condition: GOOD Disposition: Home - Attestation Statements Document Initiated by Scribe: Yes Documenting Scribe: Joleen Noland Provider For Whom Scribe is Documenting (Include Credential): Chano Reed MD Scribe Attestation: IJoleen, scribed for Chano Reed MD on 03/10/18 at 0430. Scribe Documentation Reviewed: Yes Provider Attestation: The documentation as recorded by the Joleen no accurately reflects the service I personally performed and the decisions made by me, Chano Reed MD
[2018-03-10] MEDS ORDERED: Lidocaine PATCH 5%* 1 PATCH ONE (01:21)
[2018-03-10 01:45] VITALS: BP 141/84
[2018-03-10] MEDS ORDERED: Lidocaine PATCH 5%* 1 PATCH TRANSDERM SCH (02:00)
[2018-03-10] MEDS ORDERED: Lidocaine Patch REMOVE* 1 NOTE MISC SCH (21:00)
== END 2018-03-10 01:45 | disposition home or self-care (01) ==
LOC: ED 22:02
DX: M54.5 Low back pain (principal); R51 Headache; R68.83 Chills (without fever); H53.8 Other visual disturbances; F17.210 Nicotine dependence, cigarettes, uncomplicated
CPT/HCPCS: 99282; A9270-GY

== ENCOUNTER → 2018-05-06 14:08 | Emergency (ER) | payer OTHER ==
--- NOTE | 2018-05-06 15:57 | RAD ---
INDICATION: Bilateral wrist trauma. TECHNIQUE: 3 views of both wrists were obtained. FINDINGS: The bones are in normal alignment. No fracture is seen. Joint spaces appear maintained. IMPRESSION: NO EVIDENCE FOR FRACTURE, IF THE PATIENT'S SYMPTOMS PERSIST RECOMMEND FOLLOW-UP IMAGING.
--- NOTE | 2018-05-06 15:59 | RAD ---
INDICATION: Bilateral hand trauma. TECHNIQUE: 4 views of both hands were obtained. FINDINGS: The bones are in normal alignment. No fracture is seen. Joint spaces appear maintained. IMPRESSION: NO EVIDENCE FOR FRACTURE.
--- NOTE | 2018-05-06 17:13 | ED ---
Upper Extremity Pain - HPI Summary HPI Summary: This patient is a 57 year old M [place] [facility] with a chief complaint of fall since 1300. Pt states that he tripped over a loading ramp at a gas station getting out of his truck. PMHx cataracts. Pt couldnt see loading ramp likely due to his cataracts. - History of Current Complaint Chief Complaint: EDEyeProblem Stated Complaint: FALL/EYE PROBLEMS Time Seen by Provider: 05/06/18 17:02 Hx Obtained From: Patient Mechanism Of Injury: Fall From A Standing Position Onset/Duration: Started Hours Ago, Still Present Timing: Constant Severity Initially: Mild Severity Currently: Mild Pain Location: Wrist - BL, Hand - BL Aggravating Factor(s): Nothing Alleviating Factor(s): Nothing Associated Signs & Symptoms: Positive: Negative - Allergies/Home Medications Allergies/Adverse Reactions: Allergies Allergy/AdvReac Type Severity Reaction Status Date / Time No Known Allergies Allergy Verified 03/09/18 22:12 PMH/Surg Hx/FS Hx/Imm Hx Endocrine/Hematology History: Denies: Hx Diabetes Cardiovascular History: Reports: Hx Coronary Artery Disease, Hx Myocardial Infarction Denies: Hx Congestive Heart Failure, Hx Hypertension GI History: Reports: Hx Obstructive Bowel - Previous SBO History: Denies: Hx Dialysis, Hx Renal Disease Musculoskeletal History: Reports: Hx Arthritis - Was seeing a PT for shoulder issues, Hx Back Problems - Fell out of a tree as a child, back problems since, Other Musculoskeletal History - DJD, right wrist carpal tunnel Sensory History: Reports: Hx Cataracts, Hx Contacts or Glasses Opthamlomology History: Reports: Hx Cataracts, Hx Contacts or Glasses Neurological History: Reports: Other Neuro Impairments/Disorders - chronic back pain / HAS HAD IMAGING IN THE PAST Psychiatric History: Reports: Hx Anxiety, Hx Depression - Lives at home, states being very depressed and lonely. Asked for SW consult Denies: Hx Eating Disorder, Hx of Violent Episodes Against Others - Immunization History Date of Tetanus Vaccine: unknown Infectious Disease History: No Infectious Disease History: Denies: Traveled Outside the [place] in Last 30 Days - Family History Known Family History: Positive: Other - Elder-Danlos syndrome, ezcema Family History: Sister - Elder-Danlos syndrome - Social History Lives: Alone Alcohol Use: None Hx Substance Use: No Substance Use Type: Reports: None Hx Tobacco Use: Yes Smoking Status (MU): Light Every Day Tobacco Smoker Type: Cigarettes Amount Used/How Often: 1/2 pack per day Have You Smoked in the Last Year: Yes Review of Systems Positive: Other - frustrated. 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 Positive: no symptoms reported Positive: Arthralgia - BL wrists, hands All Other Systems Reviewed And Are Negative: Yes Physical Exam - Summary Physical Exam Summary: Appearance: Well-appearing, Well-nourished, lying in bed comfortable Skin: Warm, dry, no obvious rash Eyes: sclera anicteric, no conjunctival pallor ENT: mucous membranes moist Neck: deferred Respiratory: No signs of respiratory distress Cardiovascular: Appears well perfused, pulses are nml Abdomen: deferred Musculoskeletal: Moving all 4 extremities without obvious discomfort, specifically, normal hand and wrist exam bilaterally, no swelling or bruising. Neurological: Awake and alert, mentation is normal, speech is fluent and appropriate Psychiatric: affect is normal, does not appear anxious or depressed Triage Information Reviewed: Yes Vital Signs On Initial Exam: Initial Vitals Temp Pulse Resp BP Pulse Ox 97 F 60 16 154/87 97 05/06/18 14:10 05/06/18 14:10 05/06/18 14:10 05/06/18 14:10 05/06/18 14:10 Vital Signs Reviewed: Yes Diagnostics - Vital Signs Vital Signs Temp Pulse Resp BP Pulse Ox 05/06/18 16:22 58 16 126/72 97 05/06/18 14:10 97 F 60 16 154/87 97 - Laboratory Lab Statement: Any lab studies that have been ordered have been reviewed, and results considered in the medical decision making process. - Radiology BL wrist Xray Interpretation: No Acute Changes Radiology Interpretation Completed By: Radiologist - No evidence for fx. Dr. Reed has reviewed this report. BL hands Xray Interpretation: No Acute Changes Radiology Interpretation Completed By: Radiologist - No evidence for fx. Dr. Reed has reviewed this report. Course/Dx - Course Course Of Treatment: A 57-year-old M presents to the ED with a CC of fall DENSITOMETRIST. ( +) BL wrist and hand pain, blind in L eye and decreased R eye sight secondary to cataracts. (-) DROM, swelling, ecchymosis. Tripped over loading ramp at a gas station that he could not see because of his vision loss due to cataracts. A BL wrist XR was (-). A BL hand XR was (-). - Diagnoses Provider Diagnoses: Hand sprain Discharge - Sign-Out/Discharge Documenting (check all that apply): Patient Departure - discharge - Discharge Plan Condition: Good Disposition: HOME Referrals: Osmany Garcia MD [Primary Care Provider] - - Attestation Statements Document Initiated by Scribe: Yes Documenting Scribe: Wisam Richey Provider For Whom Scribe is Documenting (Include Credential): Dr. Chano Reed MD Scribe Attestation: Wisam Taveras, scribed for Dr. Chano Reed MD on 05/06/18 at 1709.
[2018-05-06 18:20] VITALS: BP 135/87
== END | disposition home or self-care (01) ==
LOC: ED 14:08
DX: S63.90XA Sprain of unspecified part of unspecified wrist and hand, initial encounter (principal); W18.09XA Striking against other object with subsequent fall, initial encounter; Y92.524 Gas station as the place of occurrence of the external cause; I25.10 Atherosclerotic heart disease of native coronary artery without angina pectoris; I25.2 Old myocardial infarction; H26.9 Unspecified cataract
CPT/HCPCS: 99281

== ENCOUNTER 2018-07-10 21:46 | Emergency (ER) | payer OTHER ==
[2018-07-10] MEDS ORDERED: hydrOXYzine HCL TAB* 25 MG PO ONE (22:31)
--- NOTE | 2018-07-10 22:31 | ED ---
Skin Complaint - HPI Summary HPI Summary: 58-year-old male presents with rash for the past couple weeks. He states that is greatest over his arms. He states that it involves his entire body. He states is very itchy. He states he has been scratching at the rash. He states he had a similar rash year ago and was treated for such. He states he moved into a new apartment. He denies any bedbugs. He states that he is going to have his eyes fixed next week for his cataracts. He hasn't tried anything for the rash. Patient feels that has a systemic illness and requesting lab work. no fevers. no cough. no chest pain or SOB. Patient also wants to talke with someone from mental health. not SI/HI. - History of Current Complaint Chief Complaint: EDRashSkinAbscess Time Seen by Provider: 07/10/18 22:10 Stated Complaint: GENERAL Pain Intensity: 0 - Allergy/Home Medications Allergies/Adverse Reactions: Allergies Allergy/AdvReac Type Severity Reaction Status Date / Time No Known Allergies Allergy Verified 07/10/18 21:57 PMH/Surg Hx/FS Hx/Imm Hx Endocrine/Hematology History: Denies: Hx Diabetes Cardiovascular History: Reports: Hx Coronary Artery Disease, Hx Myocardial Infarction Denies: Hx Congestive Heart Failure, Hx Hypertension GI History: Reports: Hx Obstructive Bowel - Previous SBO History: Denies: Hx Dialysis, Hx Renal Disease Musculoskeletal History: Reports: Hx Arthritis - Was seeing a PT for shoulder issues, Hx Back Problems - Fell out of a tree as a child, back problems since, Other Musculoskeletal History - DJD, right wrist carpal tunnel Sensory History: Reports: Hx Cataracts, Hx Contacts or Glasses Opthamlomology History: Reports: Hx Cataracts, Hx Contacts or Glasses Neurological History: Reports: Other Neuro Impairments/Disorders - chronic back pain / HAS HAD IMAGING IN THE PAST Psychiatric History: Reports: Hx Anxiety, Hx Depression - Lives at home, states being very depressed and lonely. Asked for SW consult Denies: Hx Eating Disorder, Hx of Violent Episodes Against Others - Immunization History Date of Tetanus Vaccine: unknown Infectious Disease History: No Infectious Disease History: Denies: Traveled Outside the [place] in Last 30 Days - Family History Known Family History: Positive: Other - Elder-Danlos syndrome, ezcema Family History: Sister - Elder-Danlos syndrome - Social History Alcohol Use: None Hx Substance Use: No Substance Use Type: Reports: None Hx Tobacco Use: Yes Smoking Status (MU): Light Every Day Tobacco Smoker Type: Cigarettes Amount Used/How Often: 1/2 pack per day Have You Smoked in the Last Year: Yes Review of Systems Negative: Fever Negative: Chest Pain Negative: Shortness Of Breath Positive: Rash All Other Systems Reviewed And Are Negative: Yes Physical Exam Triage Information Reviewed: Yes Vital Signs On Initial Exam: Initial Vitals Temp Pulse Resp BP Pulse Ox 98.5 F 69 18 145/80 98 07/10/18 21:54 07/10/18 21:54 07/10/18 21:54 07/10/18 21:54 07/10/18 21:54 Vital Signs Reviewed: Yes Appearance: Positive: Well-Appearing Skin: Positive: Warm, Dry, Other - small hyperpigmented macular rash across arms with exociation, where patient points with greatest itching no rash present Head/Face: Positive: Normal Head/Face Inspection Eyes: Positive: Normal, Conjunctiva Clear ENT: Positive: Pharynx normal Respiratory/Lung Sounds: Positive: Clear to Auscultation, Breath Sounds Present Cardiovascular: Positive: Normal, RRR Musculoskeletal: Positive: Normal Neurological: Positive: Normal Psychiatric: Positive: Normal Diagnostics - Vital Signs Vital Signs Temp Pulse Resp BP Pulse Ox 07/10/18 21:54 98.5 F 69 18 145/80 98 - Laboratory Result Diagrams: 07/10/18 22:44 07/10/18 22:44 Lab Statement: Any lab studies that have been ordered have been reviewed, and results considered in the medical decision making process. Re-Evaluation - Re-Evaluation First Eval Re-Evaluation Time: 23:43 Change: Improved Comment: no longer itchy Course/Dx - Course Course Of Treatment: 58-year-old male presents with rash for the past couple weeks. He states that is greatest over his arms. He states that it involves his entire body. He states is very itchy. He states he has been scratching at the rash. He states he had a similar rash year ago and was treated for such. He states he moved into a new apartment. He denies any bedbugs. He states that he is going to have his eyes fixed next week for his cataracts. He hasn't tried anything for the rash. Patient feels that has a systemic illness and requesting lab work. no fevers. no cough. no chest pain or SOB. Patient also wants to talke with someone from mental health. not SI/HI. On exam a couple faint small hyperpigmented macules present on the arms but where patient is complaining is itchy no rash noted. has scratch jimenez across his arms and legs. labs within normal limits. gave hydroxyzine and patient states has improved. We'll discharge with prescription for hydroxyzine and hydrocortisone. will have follow up primary about the rash. Patient understands agrees with plan. - Differential Diagnoses - Skin Complaint Differential Diagnoses: Contact Dermatitis, Eczema, Scabies - Diagnoses Provider Diagnoses: Rash Discharge - Sign-Out/Discharge Documenting (check all that apply): Patient Departure - Discharge Plan Condition: Good Disposition: HOME Prescriptions: Hydrocortisone 1% CREAM* [Hytone Cream 1%*] 1 applic TOPICAL ONCE #1 tube hydrOXYzine HCL TAB* [Atarax 25 MG TAB*] 25 mg PO QID PRN #20 tab PRN Reason: Itching Referrals: Osmany Garcia MD [Primary Care Provider] - Additional Instructions: apply hydrocortisone once daily sparingly for itching take hydroxyzine every 6 hours as needed for itching Follow up with primary Return to ED if develop any new or worsening symptoms - Billing Disposition and Condition Condition: GOOD Disposition: Home
[2018-07-10 22:52] LABS: ABS Basophils 0 10^3/ul (0-0.2); ABS Eosinophils 0.2 10^3/ul (0-0.6); ABS Lymphocytes 2.1 10^3/ul (1.0-4.8); ABS Monocytes 0.7 10^3/ul (0-0.8); ABS Neutrophils 4.1 10^3/ul (1.5-7.7); ABS Nucleated RBC 0 10^3/ul; Eosinophil % 2.4 %; Hematocrit 45 % (42-52); Hemoglobin 15.4 g/dl (14.0-18.0); Lymphocyte % 29.6 %; Mean Corpuscular HGB Conc 34 g/dl (31-36); Mean Corpuscular Hemoglobin 31 pg (27-31); Mean Corpuscular Volume 92 fL (80-94); Mean Platelet Volume 9.3 fL (7.4-10.4); Nucleated Red Blood Cells % 0.1; Platelet Count 188 10^3/ul (150-450); Red Cell Distribution Width 14 % (10.5-15); White Blood Count 7.1 10^3/ul (3.5-10.8)
[2018-07-10 23:07] LABS: Urine Appearance Clear; Urine Bilirubin Negative (Negative); Urine Blood Negative (Negative); Urine Color Yellow; Urine Glucose Negative (Negative); Urine Ketones Negative (Negative); Urine Nitrite Negative (Negative); Urine Protein Negative (Negative); Urine Urobilinogen Negative (Negative)
[2018-07-10 23:09] LABS: ALT 13 U/L (7-52); AST 21 U/L (13-39); Albumin 4.2 g/dL (3.2-5.2); Albumin/Globulin Ratio 1.4 (1-3); Alkaline Phosphatase 75 U/L (34-104); Anion Gap 7 mmol/L (2-11); BUN/Creatinine Ratio 15.9 (8-20); Blood Urea Nitrogen 14 mg/dL (6-24); C Reactive Protein < 1.00 mg/L (<8.01); CO2 Carbon Dioxide 24 mmol/L (22-32); Calcium 9.3 mg/dL (8.6-10.3); Chloride 104 mmol/L (101-111); EGFR Non-African American 88.6 (>60); Globulin 2.9 g/dL (2-4); Glucose 104 mg/dL (70-100); Potassium 3.9 mmol/L (3.5-5.0); Sodium 135 mmol/L (135-145); Total Protein 7.1 g/dL (6.4-8.9)
[2018-07-10 23:14] LABS: Alcohol < 10 mg/dL (<10)
[2018-07-10 23:21] LABS: Barbiturates Urine Screen None Detected (None Detect); Benzodiazepine Urine Screen None Detected (None Detect); Urine Cannabinoids Screen Presumptive Positive (None Detect)
[2018-07-11 00:27] VITALS: BP 121/88
== END 2018-07-11 00:24 | disposition home or self-care (01) ==
LOC: ED 21:46
DX: R21 Rash and other nonspecific skin eruption (principal); I25.2 Old myocardial infarction; I25.10 Atherosclerotic heart disease of native coronary artery without angina pectoris; F17.210 Nicotine dependence, cigarettes, uncomplicated
CPT/HCPCS: 36415; 80053; 80307; 80320; 81003; 85025; 86140; 99282; A9270-GY; G0480

== ENCOUNTER 2018-08-24 10:49 | Day surgery (SDC) | payer OTHER ==
[~2018-08-24 10:49] MED LIST: Acetaminophen TAB* 325 MG PO PRN; Buffered Lidocaine 1% SYRIN* 1 ML/SYRINGE INTRADERM ONE
[2018-08-24] MEDS ORDERED: Midazolam* 1 MG/ML 2 ML VIAL (2 MG) ONE (12:12)
[2018-08-24] MEDS ORDERED: fentaNYL* 50 MCG/ML 2 ML VIAL (100 MCG VIAL) ONE (12:12)
[2018-08-24] MEDS ORDERED: Trypan Blue 0.06% SOL* 0.5 ML BTL ONE (12:30)
[2018-08-24 13:24] VITALS: BP 135/72
--- NOTE | 2018-08-24 13:55 | OP ---
DATE OF OPERATION: 08/24/18 - [facility] DATE OF : 58 SURGEON: Dr. Antione Sow LUMP[place] WR[employer]PER [employer]KER: None. ANESTHESIA: Topical with intravenous sedation. PRE-OP DIAGNOSIS: White hypermature cataract, right eye. POST-OP DIAGNOSIS: White hypermature cataract, right eye. OPERATIVE PROCEDURE: Phacoemulsification and cataract extraction with posterior chamber intraocular lens implant, right eye. COMPLICATIONS: None. BLOOD LOSS: None. DESCRIPTION OF PROCEDURE: The patient was brought to the operating room and given a small amount of intra-venous sedation. A drop of tetracaine was placed in his right eye. The patient was prepped and draped in the usual sterile fashion for ophthalmic surgery and attention was directed to the right eye where a speculum was placed. It was noted he had a well dilated pupil and a completely white cataract. A paracentesis was created at the 11 o'clock position and 0.1 cc of 1% preservative- free lidocaine was injected into the anterior chamber followed by room air. This was then followed by VisionBlue dye and then DisCoVisc. The eye was digitally stabilized while a 2.75 mm keratome was used to create a triplanar clear corneal incision at the 9 o'clock position. A continuous curvilinear capsulorrhexis was created with a cystotome and Utrata forceps. Although the anterior chamber pressure was purposely elevated with viscoelastic and a very small rhexis was begun, as expected with this type of lens, a capsulorrhexis began to enlarge quickly. However, the surgeon was able to rescue the capsulorrhexis with some maneuvers involving these cystotome and the Utrata forceps, such that in the end a fairly continuous curvilinear capsulorrhexis was created with some peaking in the supratemporal quadrant. Cautious hydrodissection was performed with balanced saline on a cannula. Phacoemulsification was then performed in a divide and conquer technique to create 4 fragments which were removed. Minimal cortical material remained and this was gently aspirated off the capsular bag. The capsule remained intact. DisCoVisc was used to inflate the capsular bag and an [id number] 23.5 diopter lens was inserted into the capsular bag. DisCoVisc was removed and BSS on a cannula was used to hydrate the corneal stroma and seal the wound. At the end of the case the pupil was round. The lens was centered. The eye pressure appeared normal and the wound was water tight. The capsule was intact. Topical Maxitrol ointment was placed on the surface of the eye. The eye was closed, patched, shielded, and the patient was sent to the recovery room in stable condition with postop instructions and followup appointment given. [id number]/CPS #: [id number] MTDD
[2018-08-24] MEDS ORDERED: Cyclopentolate 1% OPTH.SOL* 2 ML BTL ONE (15:28)
[2018-08-24] MEDS ORDERED: Tropicamide 1% OPTH.SOL* BTL ONE (15:28)
[2018-08-24] MEDS ORDERED: Lidocaine 1%* 5 ML VIAL ONE (15:28)
[2018-08-24] MEDS ORDERED: Neomycin/Polymy/Dex OPHTH.OIN* 3.5 GM ONE (15:28)
[2018-08-24] MEDS ORDERED: Phenylephrine 2.5% OPTH.SOL* 2 ML BTL ONE (15:28)
[2018-08-24] MEDS ORDERED: Ketorolac 0.5% OPHTH (NF) 0.5 % 5 ML BTL ONE (15:29)
[2018-08-24] MEDS ORDERED: Tetracaine 0.5% OPTH.SOL 4 ML* 1 DROP BTL ONE (15:29)
[2018-08-24] MEDS ORDERED: Phenylephr/Ketorolac 1%/0.3% OPH DROP BTL ONE (15:29)
== END 2018-08-24 13:44 | disposition home or self-care (01) ==
LOC: OREAST 10:49
PROVIDERS: ATTEND Ophthalmology
DX: H25.21 Age-related cataract, morgagnian type, right eye (principal); J44.9 Chronic obstructive pulmonary disease, unspecified; Z72.0 Tobacco use
CPT/HCPCS: A9270-GY; C9447; J2250; J3010; V2632

== ENCOUNTER 2018-09-21 01:55 | Emergency (ER) | payer OTHER ==
[2018-09-21] MEDS ORDERED: hydrOXYzine HCL TAB* 25 MG PO ONE (02:16)
--- NOTE | 2018-09-21 02:18 | ED ---
Altered Mental Status - HPI Summary HPI Summary: Patient is a 58 y/o M presenting to ED with complaints of anxiety, oncoming panic attack. He reports that he has been under a lot of stress recently due to current living arrangements. Patient notes that he lives in a boarding house and is having difficulty with other residents. He states that he experiences confusion and nervousness with his panic attacks. Patient claims that he is not on any anxiety medications at present. SI, HI are denied. He denies alcohol usage tonight as well. Hx of anxiety, patient used to be on hydroxyzine. On triage, pain is denied. Home medications and allergies are reviewed. - History Of Current Complaint Chief Complaint: EDPsychosocial Stated Complaint: PANIC ATTACK Hx Obtained From: Patient Onset/Duration: Still Present Timing: Constant Severity Currently: None - pain denied Aggravating Factor(s): Environmental Exposure - stress Alleviating Factor(s): Nothing Associated Signs And Symptoms: Positive: Negative Has Suicidal: Thoughts - NEGATIVE Has Homicidal: Thoughts - NEGATIVE - Allergies/Home Medications Allergies/Adverse Reactions: Allergies Allergy/AdvReac Type Severity Reaction Status Date / Time No Known Allergies Allergy Verified 09/21/18 02:02 PMH/Surg Hx/FS Hx/Imm Hx Endocrine/Hematology History: Denies: Hx Diabetes Cardiovascular History: Reports: Hx Coronary Artery Disease, Hx Myocardial Infarction, Other Cardiovascular Problems/Disorders - "SPOT ON HEART FROM SMOKING OR FROM HEART ATTACK" Denies: Hx Congestive Heart Failure, Hx Hypertension, Hx Pacemaker/ICD Respiratory History: Reports: Other Respiratory Problems/Disorders - SPOT ON LUNG FROM SMOKING GI History: Reports: Hx Gastroesophageal Reflux Disease - going to talk to MD, Hx Obstructive Bowel - Previous SBO, Other GI Disorders - HX of SBO History: Denies: Hx Dialysis, Hx Renal Disease Musculoskeletal History: Reports: Hx Arthritis - Was seeing a PT for shoulder issues, Hx Back Problems - Fell out of a tree as a child, back problems since, Other Musculoskeletal History - DJD, right wrist carpal tunnel Sensory History: Reports: Hx Cataracts, Hx Contacts or Glasses Denies: Hx Hearing Aid Opthamlomology History: Reports: Hx Cataracts, Hx Contacts or Glasses Neurological History: Reports: Hx Headaches - STATES IS RELATED TO EYES, Other Neuro Impairments/Disorders - chronic back pain / HAS HAD IMAGING IN THE PAST Psychiatric History: Reports: Hx Anxiety, Hx Depression - Lives at home, states being very depressed and lonely. Asked for SW consult Denies: Hx Eating Disorder, Hx of Violent Episodes Against Others - Cancer History Hx Chemotherapy: No - Immunization History Date of Tetanus Vaccine: unknown Infectious Disease History: No Infectious Disease History: Denies: Traveled Outside the [place] in Last 30 Days - Family History Known Family History: Positive: Other - Elder-Danlos syndrome, ezcema Family History: Sister - Elder-Danlos syndrome - Social History Alcohol Use: None Alcohol Amount: ALCOHOL FOR 12 YEARS Hx Substance Use: No Substance Use Type: Reports: None Hx Tobacco Use: Yes Smoking Status (MU): Light Every Day Tobacco Smoker Type: Cigarettes Amount Used/How Often: 1/2 pack per day Have You Smoked in the Last Year: Yes Review of Systems Negative: Fever - ON VITALS, TEMP IS 98.6 F Psychological: Other - NEGATIVE - SI, HI Positive: Anxious All Other Systems Reviewed And Are Negative: Yes Physical Exam - Summary Physical Exam Summary: VITAL SIGNS: Reviewed. GENERAL: Patient is a well-developed and nourished male who is lying comfortable in the stretcher. Patient is not in any acute respiratory distress. Patient is anxious appearing. HEAD AND FACE: No signs of trauma. No ecchymosis, hematomas or skull depressions. No sinus tenderness. EYES: PERRLA, EOMI x 2, No injected conjunctiva, no nystagmus. EARS: Hearing grossly intact. Ear canals and tympanic membranes are within normal limits. MOUTH: Oropharynx within normal limits. NECK: Supple, trachea is midline, no adenopathy, no JVD, no carotid bruit, no c- spine tenderness, neck with full ROM. CHEST: Symmetric, no tenderness at palpation LUNGS: Clear to auscultation bilaterally. No wheezing or crackles. CVS: Regular rate and rhythm, S1 and S2 present, no murmurs or gallops appreciated. ABDOMEN: Soft, non-tender. No signs of distention. No rebound no guarding, and no masses palpated. Bowel sounds are normal. EXTREMITIES: FROM in all major joints, no edema, no cyanosis or clubbing. NEURO: Alert and oriented x 3. No acute neurological deficits. Speech is normal and follows commands. SKIN: Dry and warm Triage Information Reviewed: Yes Vital Signs On Initial Exam: Initial Vitals Temp Pulse Resp BP Pulse Ox 98.6 F 67 16 158/77 96 03/05/19 02:00 09/21/18 02:00 09/21/18 02:00 09/21/18 02:00 09/21/18 02:00 Vital Signs Reviewed: Yes Diagnostics - Vital Signs Vital Signs Temp Pulse Resp BP Pulse Ox 09/21/18 02:00 98.6 F 67 16 158/77 96 - Laboratory Lab Statement: Any lab studies that have been ordered have been reviewed, and results considered in the medical decision making process. Re-Evaluation - Re-Evaluation First Eval Re-Evaluation Time: 03:16 Change: Improved Comment: Patient states that his Sx are improved, he will be discharged to home and follow up with PCP, patient is agreeable with this. Altered Mental Statu Course/Dx - Course Course Of Treatment: Patient is a 58 y/o M presenting to ED with complaints of anxiety, oncoming panic attack. He reports that he has been under a lot of stress recently due to current living arrangements. Patient notes that he lives in a boarding house and is having difficulty with other residents. He states that he experiences confusion and nervousness with his panic attacks. Patient claims that he is not on any anxiety medications at present. SI, HI are denied. He denies alcohol usage tonight as well. Hx of anxiety, patient used to be on hydroxyzine. On physical exam, patient is anxious appearing. During ED course , patient was given Atarax 25 mg PO ONCE. Patient states that his Sx are improved, he will be discharged to home and follow up with PCP, patient is agreeable with this. - Diagnoses Provider Diagnoses: Anxiety Discharge - Sign-Out/Discharge Documenting (check all that apply): Patient Departure - discharge Patient Received Moderate/Deep Sedation with Procedure: No - NO PROCEDURES DONE - Discharge Plan Condition: Stable Disposition: HOME Patient Education Materials: Anxiety (ED) Referrals: Osmany Garcia MD [Medical Doctor] - 2 Days Additional Instructions: RETURN TO THE EMERGENCY DEPARTMENT FOR CHANGING OR WORSENING SYMPTOMS. FOLLOW UP WITH PRIMARY CARE PHYSICIAN IN 1-2 DAYS. - Attestation Statements Document Initiated by Scribe: Yes Documenting Scribe: TR FRITZ Provider For Whom Scribe is Documenting (Include Credential): REGINO MUJICA MD Scribe Attestation: TR Taveras, scribed for REGINO MUJICA MD on 09/21/18 at 0323. Status of Scribe Document: Ready
--- OUTSIDE RECORDS SUMMARY | 2018-09-21 02:39 | XMS REPORT | Continuity of Care Document ---
:1960 External Reference #:[id number] Author Name Antione Sow M.D. Address [address] [place] [address] Care Team Providers Name Role Phone Santhosh Xavier NP Care Team Information Shipping Clerk Crating Unavailable Osmany Garcia MD Primary Care Physician Unavailable Payers Date Identification Numbers Payment Provider Subscriber Policy Number: [id number] Rockwoodswetha Flores PayID: [id number] [address] [place] [address] Advance Directives Description No Information Available Problems Description No Information Family History Date Family Member(s) Observation Comments Father Cancer Father due to Brain cancer () Father due to Aneurysm () Father Substance Abuse Mother Diabetes Mother due to Diabetes () Social History Type Date Description Comments Sex Unknown ETOH Use Has consumed alcohol in the past Tobacco Use Start: Unknown Light tobacco smoker (10 or fewer cigarettes/day) Smoking Status Reviewed: 09/01/18 Light tobacco smoker (10 or fewer cigarettes/day) Allergies, Adverse Reactions, Alerts Description No Known Drug Allergies Medications Medication Date Status Form Strength Qnty SIG Indications Ordering Provider Ciprofloxacin 08/17/ Active Solution 0.3% 10ml 1 drop Peter HCL 2019 four times Sow, a day M.D. start the morning of surgery in the scheduled eye Ketorolac 08/17/ Active Solution 0.5% 5ml 1 drops Peter Tromethamine 2019 right eye Sow, twice a M.D. day Prednisolone 08/17/ Active Suspension 1% 10ml 1 drop Peter Acetate 2019 right eye Sow, four times M.D. a day Ketorolac 08/17/ Active Solution 0.5% 5ml 1 drops Peter Tromethamine 2019 left eye Sow, twice a M.D. day Prednisolone 08/17/ Active Suspension 1% 10ml 1 drop Peter Acetate 2019 left eye Sow, four times M.D. a day, shake well Hydroxyzine HCL / Active Tablets 25mg Unknown 0000 Naproxen / Active Tablets 500mg Unknown 0000 Hydrocortisone / Hx Cream 1% Unknown 0000 - 2018 Immunizations Description No Information Available Vital Signs Date Vital Result Comment 09/01/2018 11:27am Intraocular Pressure Right Eye 22 mmHg Intraocular Pressure Left Eye 22 mmHg 08/25/2018 2:19pm Intraocular Pressure Right Eye 22 mmHg 07/15/2018 3:06pm Intraocular Pressure Right Eye 21 mmHg Intraocular Pressure Left Eye 20 mmHg Results Description No Information Available Procedures Date Code Description Status 08/24/2018 15221 Extracapsular Cataract Extraction W/Intraocular Lens Completed 08/04/2018 50272 Ophthalmic Biometry By Partial Coherence Interferometry Completed W/Intra 08/04/2018 68740 Eye Exam Est Intermediate Completed 07/15/2018 53613 Eye Exam New Intermediate Completed 07/15/2018 72692 B-Scan Contact, Ophthalmic Ultrasound Echography Completed Encounters Description No Information Available Plan of Treatment Future Appointment(s):10/05/2018 9:45 am - Lang Colbert, [facility] at [facility] [id number] 11:00 am - Lang Colbert, OD at [facility] Xylchj3809/01/2018 - Antione Sow M.D.Z48.89 Encounter for other specified surgical aftercareComments:The patient was seen post-operatively one day following surgery. The patient was advised that the eye tolerated the surgery well without complications. Patient was given eye drop schedule and implant card.The patient was told to wear an eye shield QHS for one week and sunglasses daily. The patient was also advised to contact us immediately if new symptoms or visual changes are noted such as pain , worsening redness, flashes, floaters or decrease in vision.Follow up:The patient is to return in one week to follow up after cataract surgery and sooner if needed.
--- OUTSIDE RECORDS SUMMARY | 2018-09-21 02:39 | XMS REPORT | Continuity of Care Document ---
:1960 External Reference #:[id number] Author Name Antione Sow M.D. Address [address] [place] [address] Care Team Providers Name Role Phone Santhosh Xavier NP Care Team Information Broadcast Program Director Unavailable Osmany Garcia MD Primary Care Physician Unavailable Payers Date Identification Numbers Payment Provider Subscriber Policy Number: [id number] Foremanswetha Flores PayID: [id number] [address] [place] [address] Advance Directives Description No Information Available Problems [...] (10 or fewer cigarettes/day) Smoking Status Reviewed: 08/25/18 Light tobacco smoker (10 or fewer cigarettes/day) [...] 1 drops Peter Tromethamine 2019 right eye Swo, twice a M.D. day Prednisolone 08/17/ Active [...] Available Vital Signs Date Vital Result Comment 08/25/2018 2:19pm Intraocular Pressure Right Eye 22 mmHg 07/15/2018 3:06pm Intraocular Pressure Right Eye 21 mmHg Intraocular Pressure Left Eye 20 mmHg Results Description No Information Available Procedures Date Code Description Status 08/04/2018 15421 Ophthalmic Biometry By Partial Coherence Interferometry Completed W/Intra 08/04/2018 54506 Eye Exam Est Intermediate Completed 07/15/2018 86681 Eye Exam New Intermediate Completed 07/15/2018 47794 B-Scan Contact, Ophthalmic Ultrasound Echography Completed Encounters Description No Information Available Plan of Treatment Future Appointment(s):08/31/2018 9:25 am - Antione Sow M.D. at [facility] Eieeji2210/05/2018 9:45 am - Lang Colbert, OD at [facility] Nenfpa5309/07/2018 11:00 am - Lang Colbert, OD at [facility] Ndaohf7509/01/2018 11:15 am - Antione Sow M.D. at [facility] Zvejmu8508/25/2018 - Antione Sow M.D.Z48.89 Encounter for other [...] or visual changes are noted such as pain, worsening redness, flashes, floaters or decrease in vision.Follow up:The patient is to return in one week to follow up after cataract surgery and sooner if needed.
--- OUTSIDE RECORDS SUMMARY | 2018-09-21 02:39 | XMS REPORT | Continuity of Care Document ---
:1960 External Reference #:[id number] Author Name Lang Colbert, OD Address [address] [place] [address] Care Team Providers Name Role Phone Santhosh Xavier NP Care Team Information Financial Aids Officer Unavailable Osmany Garcia MD Primary Care Physician Unavailable Payers Date Identification Numbers Payment Provider Subscriber Policy Number: [id number] Shoshoneswetha Flores PayID: [id number] [address] [place] [address] Advance Directives Description No Information Available Problems [...] (10 or fewer cigarettes/day) Smoking Status Reviewed: 09/07/18 Light tobacco smoker (10 or fewer cigarettes/day) Allergies, Adverse Reactions, Alerts Description No Known Drug Allergies Medications Medication Date Status Form Strength Qnty SIG Indications Ordering Provider Ketorolac 08/17/ Active Solution 0.5% 5ml 1 drops Peter Tromethamine 2019 left eye Sow, twice a M.D. day Prednisolone 08/17/ Active Suspension 1% 10ml 1 drop Peter Acetate 2019 left eye Sow, four times M.D. a day, shake well Hydroxyzine HCL / Active Tablets 25mg Unknown 0000 Naproxen / Active Tablets 500mg Unknown 0000 Ciprofloxacin 08/17/ Hx Solution 0.3% 10ml 1 drop Peter HCL 2019 - four times Sow, 09/07/ a day M.D. 2019 start the morning of surgery in the scheduled eye Ketorolac 08/17/ Hx Solution 0.5% 5ml 1 drops Peter Tromethamine 2019 - right eye Sow, 09/07/ twice a M.D. 2019 day Prednisolone 08/17/ Hx Suspension 1% 10ml 1 drop Peter Acetate 2018 - right eye Sow, four times M.D. 2019 a day Hydrocortisone / Hx Cream 1% Unknown 0000 - 2018 Immunizations Description No Information Available Vital Signs Date Vital Result Comment 09/07/2018 11:33am Intraocular Pressure Right Eye 16 mmHg Intraocular Pressure Left Eye 18 mmHg 09/01/2018 11:27am Intraocular Pressure Right Eye 22 mmHg Intraocular Pressure Left Eye 22 mmHg 08/25/2018 2:19pm Intraocular Pressure Right Eye 22 mmHg 07/15/2018 3:06pm Intraocular Pressure Right Eye 21 mmHg Intraocular Pressure Left Eye 20 mmHg Results Description No Information Available Procedures Date Code Description Status 08/24/2018 22692 Extracapsular Cataract Extraction W/Intraocular Lens Completed 08/04/2018 91300 Ophthalmic Biometry By Partial Coherence Interferometry Completed W/Intra 08/04/2018 54276 Eye Exam Est Intermediate Completed 07/15/2018 83487 Eye Exam New Intermediate Completed 07/15/2018 08505 B-Scan Contact, Ophthalmic Ultrasound Echography Completed Encounters Description No Information Available Plan of Treatment Future Appointment(s):10/05/2018 9:45 am - Lang Colbert OD at [facility] [id number] - Lang Colbert ODZ96.1 Presence of intraocular lensFollow up:as scheduled 1 month post op refraction, sooner PRN
--- OUTSIDE RECORDS SUMMARY | 2018-09-21 02:39 | XMS REPORT | Continuity of Care Document ---
:1960 External Reference #:[id number] Author Name Nancy Aly Care Team Providers Name Role Phone Gloria Cabral MD Care Team Information Warehouse Coordinator Unavailable Cullen Loo MD Primary Care Physician Unavailable Payers Date Identification Numbers Payment Provider Subscriber Effective: 2016 Policy Number: [id number] [employer] Name: [id number] [address] PayID: [id number] [place] [address] Expires: 2016 Policy Number: [id number] Medicaid Bry Flores Group Name: 1 1 [address] PayID: [id number] [place] [address] Advance Directives Description No Information Available Problems Date Description Provider Status Onset: 06/26/2016 Closed fracture of lumbar vertebra Osmany Garcia M.D. Active without spinal cord injury Onset: 06/26/2016 Low back pain Osmany Garcia M.D. Active Onset: 06/26/2016 Carpal tunnel syndrome of right wrist Osmany Garcia M.D. Active Onset: 07/03/2016 Anxiety state Osmany Garcia M.D. Active Onset: 07/03/2016 Chronic obstructive lung disease Osmany Garcia M.D. Active Onset: 06/22/2018 Cataract Cullen Loo MD Active Onset: 06/22/2018 Screening for malignant neoplasm of Cullen Loo MD Active colon Onset: 06/22/2018 Tobacco user Cullen Loo MD Active Onset: 09/13/2018 Social migrant Cullen Loo MD Active Family History Date Family Member(s) Observation Comments General Heart Disease General Diabetes Mother Diabetes Type II Siblings 4 Social History Type Date Description Comments Sex Unknown Marital Status Single Lives With Negative For Alone Occupation Unemployed Tobacco Use Start: Unknown currently smokes 1/2 Pack Daily ETOH Use Has consumed alcohol in the past Tobacco Use Start: Unknown Light tobacco smoker (10 or fewer cigarettes/day) Smoking Status Reviewed: 08/18/18 Light tobacco smoker (10 or fewer cigarettes/day) Exercise Type/Frequency Exercises sporadically Exercise Type/Frequency rides his bike a lot mostly in warmer days Allergies, Adverse Reactions, Alerts Description No Known Drug Allergies Medications Medication Date Status Form Strength Qnty SIG Indications Ordering Provider Cane/Aluminum/Adj 10/28/ Active Misc 1unit use with M48.00 Zsofia ustable/Mens 2018 s ambulation Diallo, Handle [employer] Hydroxyzine HCL 08/05/ Active Tablets 50mg 60tab three F41.9 Amelia 2018 s times/day Rodríguez, as needed [employer] for itching Nicotine 07/29/ Active Gum 2mg 50uni 1 piece of F17.210 Zsofia Polacrilex 2018 ts gum q1-2hr Diallo, [employer] Naproxen 07/29/ Active Tablets 500mg 120ta take one M48.00 Zsofia 2018 bs tablet by Diallo, mouth twice [employer] a day with food as needed Vitamin D3 09/03/ Active Tablets 1000Unit 180ta ( takes in E55.9 Zsofia 2017 bs the winter) Diallo, take two [employer] tablets by mouth every day Elimite 08/05/ Hx Cream 5% 60gm apply from B86 Amelia 2018 - head to Rodríguez, 01/13/ feet and [employer] 2017 wash off after 12-14 hours Nicotine 04/15/ Hx Gum 2mg 50uni 1 piece of F17.210 Zsofia Polacrilex 2016 - ts gum q1-2hr Diallo, 07/29/ [employer] 2018 Escitalopram 09/03/ Hx Tablets 5mg 60tab take 1 tab F41.9 Zsofia Oxalate 2017 - s po daily Diallo, 09/03/ for one [employer] 2016 week then increase to 2 tabs daily Sertraline HCL 07/08/ Hx Tablets 25mg 60tab Take Two F41.9 Zsofia 2016 - s Tablets By Diallo, 05/20/ Mouth Every [employer] 2017 Day Escitalopram 07/03/ Hx Tablets 5mg 30tab 1 by mouth F41.9 [place] Oxalate 2015 - s every day x Pachikara week then , M.DRaymond 2015 2 tab daily Ibuprofen / Hx Tablets 600mg not using Unknown 0000 - prn 2016 Naproxen / Hx Not usingAs Unknown 0000 - directed 2016 Tramadol HCL / Hx Tablets 50mg 30tab 1 tab 12h Osmany 0000 - s as needed Pachikara 12/10/ , M.DRaymond 2016 Gabapentin / Hx Capsules 300mg 90cap 1 by mouth M54.5 Zsofia - s three times Diallo, 10/28/ a day as [employer] 2018 needed Cyclobenzaprine / Hx Tablets 10mg one by Unknown HCL 0000 - mouth two 01/01/ times a day 2017 as needed spasm Immunizations CPT Code Status Date Vaccine Reaction Lot # [id number] Given 05/20/2017 Influenza Virus Vaccine, no immediate reaction, [id number] Quadrivalent, Split, pt tolerated well Preservative Free 58997 Given 04/15/2017 Influenza Virus Vaccine, [id number] Quadrivalent, Split, Preservative Free 55658 Given 02/04/2017 Pneumococcal Conjugate no immediate reaction [id number] Vaccine 13 Valent For noted and pt tolerated Intramuscular Use well Vital Signs Date Vital Result Comment 09/13/2018 2:59pm Height 68.5 inches 5'8.50" Weight 147.00 lb Heart Rate 74 /min BP Systolic 130 mmHg BP Diastolic 90 mmHg BMI (Body Mass Index) 22.0 kg/m2 08/18/2018 1:37pm Weight 136.00 lb Heart Rate 72 /min BP Systolic 130 mmHg BP Diastolic 70 mmHg Respiratory Rate 16 /min Body Temperature 98.3 F Pain Level 2 back and head O2 % BldC Oximetry 98 % 06/22/2018 1:14pm Weight 140.00 lb Heart Rate 60 /min BP Systolic 116 mmHg BP Diastolic 64 mmHg Respiratory Rate 16 /min Body Temperature 98.6 F Pain Level 6 back; 3 eyes O2 % BldC Oximetry 97 % 03/24/2018 1:39pm Height 68.5 inches 5'8.50" Weight 139.00 lb Heart Rate 66 /min BP Systolic Sitting 110 mmHg BP Diastolic Sitting 66 mmHg Body Temperature 97.3 F O2 % BldC Oximetry 97 % BMI (Body Mass Index) 20.8 kg/m2 03/08/2018 2:12pm Height 68.5 inches 5'8.50" Weight 136.38 lb Heart Rate 69 /min BP Systolic 100 mmHg BP Diastolic 60 mmHg Body Temperature 97.6 F O2 % BldC Oximetry 96 % BMI (Body Mass Index) 20.4 kg/m2 01/14/2018 3:06pm Height 68.5 inches 5'8.50" Weight 141.00 lb Heart Rate 54 /min BP Systolic Sitting 122 mmHg BP Diastolic Sitting 70 mmHg Body Temperature 95.7 F 95.1 other ear O2 % BldC Oximetry 98 % BMI (Body Mass Index) 21.1 kg/m2 01/01/2018 2:55pm Height 68.5 inches 5'8.50" Weight 140.12 lb Heart Rate 89 /min BP Systolic Sitting 126 mmHg BP Diastolic Sitting 78 mmHg O2 % BldC Oximetry 97 % BMI (Body Mass Index) 21.0 kg/m2 10/28/2017 11:42am Weight 152.12 lb Heart Rate 109 /min BP Systolic Sitting 132 mmHg BP Diastolic Sitting 78 mmHg Body Temperature 98.3 F O2 % BldC Oximetry 96 % 09/02/2017 10:16am Weight 150.00 lb Heart Rate 59 /min BP Systolic Sitting 122 mmHg BP Diastolic Sitting 78 mmHg O2 % BldC Oximetry 96 % 08/05/2017 10:40am Weight 150.00 lb Heart Rate 65 /min BP Systolic Sitting 130 mmHg BP Diastolic Sitting 71 mmHg O2 % BldC Oximetry 97 % 07/29/2017 10:12am Height 68.50 inches 5'8.50" Weight 157.00 lb Heart Rate 68 /min BP Systolic Sitting 134 mmHg BP Diastolic Sitting 78 mmHg Respiratory Rate 15 /min O2 % BldC Oximetry 97 % BMI (Body Mass Index) 23.5 kg/m2 05/20/2017 9:28am Height 68.50 inches 5'8.50" Weight 156.25 lb Heart Rate 66 /min BP Systolic 128 mmHg BP Diastolic 76 mmHg Body Temperature 98.3 F O2 % BldC Oximetry 98 % BMI (Body Mass Index) 23.4 kg/m2 04/15/2017 7:44am Weight 154.12 lb Heart Rate 74 /min BP Systolic Sitting 110 mmHg BP Diastolic Sitting 60 mmHg Body Temperature 97.7 F O2 % BldC Oximetry 97 % 02/04/2017 10:44am Weight 134.50 lb 02/04/2017 9:47am Weight 149.00 lb with shoes Heart Rate 72 /min BP Systolic 106 mmHg BP Diastolic 60 mmHg O2 % BldC Oximetry 97 % 12/10/2016 4:20pm BP Systolic Sitting 128 mmHg BP Diastolic Sitting 64 mmHg 12/10/2016 2:21pm Weight 152.50 lb Heart Rate 67 /min BP Systolic Sitting 152 mmHg BP Diastolic Sitting 80 mmHg Body Temperature 97.5 F O2 % BldC Oximetry 98 % 09/03/2016 4:15pm Weight 138.12 lb Heart Rate 54 /min BP Systolic Sitting 142 mmHg BP Diastolic Sitting 80 mmHg Body Temperature 98.2 F O2 % BldC Oximetry 97 % 07/03/2016 8:11am Height 68.25 inches 5'8.25" Weight 140.00 lb Heart Rate 94 /min BP Systolic Sitting 108 mmHg BP Diastolic Sitting 62 mmHg Body Temperature 98.5 F O2 % BldC Oximetry 98 % BMI (Body Mass Index) 21.1 kg/m2 06/26/2016 12:16pm Height 68.25 inches 5'8.25" Weight 143.25 lb Heart Rate 76 /min BP Systolic Sitting 170 mmHg BP Diastolic Sitting 82 mmHg Body Temperature 98.5 F O2 % BldC Oximetry 98 % BMI (Body Mass Index) 21.6 kg/m2 08/03/2009 10:03am Height 70.5 inches 5'10.50" Weight 145.00 lb Heart Rate 76 /min BP Systolic Sitting 118 mmHg BP Diastolic Sitting 78 mmHg BMI (Body Mass Index) 20.5 kg/m2 Results Test Date Facility Test Result H/L Range Note Comp Metabolic Panel 07/10/2018 [facility] Sodium 135 mmol/L N 135-[address] [place] [address] [phone] Potassium 3.9 mmol/L N 3.5-5.0 Chloride 104 mmol/L N 101-111 Co2 Carbon Dioxide 24 mmol/L N 22-32 Anion Gap 7 mmol/L N 2-11 Glucose 104 mg/dL High 70-100 Blood Urea Nitrogen 14 mg/dL N 6-24 Creatinine 0.88 mg/dL N 0.67-1.17 BUN/Creatinine Ratio 15.9 N 8-20 Calcium 9.3 mg/dL N 8.6-10.3 Total Protein 7.1 g/dL N 6.4-8.9 Albumin 4.2 g/dL N 3.2-5.2 Globulin 2.9 g/dL N 2-4 Albumin/Globulin Ratio 1.4 N 1-3 Total Bilirubin 0.30 mg/dL N 0.2-1.0 Alkaline Phosphatase 75 U/L N 34-104 Alt 13 U/L N 7-52 Ast 21 U/L N 13-39 Egfr Non- 88.6 >60 Egfr 107.3 >60 1 Laboratory test 07/10/2018 [facility] C Reactive < 1.00 mg/L N <8.[address] [place] [address] [phone] Alcohol < 10 mg/dL N <10 CBC Auto Diff 07/10/2018 [facility] White Blood 7.1 10^3/uL N 3.5-10.[address] [place] [address] [phone] Red Blood Count 4.90 10^6/uL N 4.00-5.40 Hemoglobin 15.4 g/dL N 14.0-18.0 Hematocrit 45 % N 42-52 Mean Corpuscular Volume 92 fL N 80-94 Mean Corpuscular Hemoglobin 31 pg N 27-31 Mean Corpuscular HGB Conc 34 g/dL N 31-36 Red Cell Distribution Width 14 % N 10.5-15 Platelet Count 188 10^3/uL N 150-450 Mean Platelet Volume 9.3 fL N 7.4-10.4 Abs Neutrophils 4.1 10^3/uL N 1.5-7.7 Abs Lymphocytes 2.1 10^3/uL N 1.0-4.8 Abs Monocytes 0.7 10^3/uL N 0-0.8 Abs Eosinophils 0.2 10^3/uL N 0-0.6 Abs Basophils 0 10^3/uL N 0-0.2 Abs Nucleated RBC 0 10^3/uL Granulocyte % 57.8 % Lymphocyte % 29.6 % Monocyte % 9.9 % Eosinophil % 2.4 % Basophil % 0.3 % Nucleated Red Blood Cells % 0.1 Urinalysis Profile 07/10/2018 [facility] Urine Color Yellow [address] [place] [address] [phone] Urine Appearance Clear Urine Specific [place] 1.010 N 1.010-1.030 Urine pH 7.0 N 5-9 Urine Urobilinogen Negative Negative Urine Ketones Negative Negative Urine Protein Negative Negative Urine Leukocytes Negative Negative Urine Blood Negative Negative Urine Nitrite Negative Negative Urine Bilirubin Negative Negative Urine Glucose Negative Negative CBC Auto Diff 09/04/2017 [facility] White Blood 9.4 10^3/uL N 3.5-10.[address] [place] [address] [phone] Red Blood Count 4.95 10^6/uL N 4.0-5.4 Hemoglobin 15.6 g/dL N 14.0-18.0 Hematocrit 45 % N 42-52 Mean Corpuscular Volume 90 fL N 80-94 Mean Corpuscular Hemoglobin 32 pg High 27-31 Mean Corpuscular HGB Conc 35 g/dL N 31-36 Red Cell Distribution Width 13 % N 10.5-15 Platelet Count 182 10^3/uL N 150-450 Mean Platelet Volume 9 um3 N 7.4-10.4 Abs Neutrophils 6.1 10^3/uL N 1.5-7.7 Abs Lymphocytes 2.2 10^3/uL N 1.0-4.8 Abs Monocytes 0.9 10^3/uL High 0-0.8 Abs Eosinophils 0.2 10^3/uL N 0-0.6 Abs Basophils 0 10^3/uL N 0-0.2 Abs Nucleated RBC 0 10^3/uL Granulocyte % 64.5 % N 38-83 Lymphocyte % 23.3 % Low 25-47 Monocyte % 9.5 % High 1-9 Eosinophil % 2.4 % N 0-6 Basophil % 0.3 % N 0-2 Nucleated Red Blood Cells % 0.1 Lipid Profile 05/20/2017 [facility] Triglycerides 99 mg/dL N 2 (Trig/Chol/HDL) [address] [place] [address] [phone] Cholesterol 182 mg/dL N 3 HDL Cholesterol 33.6 mg/dL N 4 LDL Cholesterol 129 mg/dL N 5 Laboratory test 05/20/2017 [facility] Glucose 83 mg/dL N 70- 100 finding [address] [place] [address] [phone] Comp Metabolic Panel 02/01/2017 [facility] Sodium 135 mmol/L N 133-145 [address] [place] [address] [phone] Potassium 3.9 mmol/L N 3.5-5.0 Chloride 103 mmol/L N 101-111 Co2 Carbon Dioxide 27 mmol/L N 22-32 Anion Gap 5 mmol/L N 2-11 Glucose 78 mg/dL N 70-100 Blood Urea Nitrogen 9 mg/dL N 6-24 Creatinine 0.94 mg/dL N 0.67-1.17 BUN/Creatinine Ratio 9.6 N 8-20 Calcium 8.9 mg/dL N 8.6-10.3 Total Protein 7.0 g/dL N 6.4-8.9 Albumin 4.2 g/dL N 3.2-5.2 Globulin 2.8 g/dL N 2-4 Albumin/Globulin Ratio 1.5 N 1-3 Total Bilirubin 0.60 mg/dL N 0.2-1.0 Alkaline Phosphatase 82 U/L N 34-104 Alt 17 U/L N 7-52 Ast 24 U/L N 13-39 Egfr Non- 82.7 N >60 Egfr 106.4 N >60 6 Laboratory test 02/01/2017 [facility] Magnesium 2.1 mg/dL N 1.9-2.7 finding [address] [place] [address] [phone] Creatine Kinase(CK) 131 U/L N 10-223 CBC Auto Diff 02/01/2017 [facility] White Blood 9.3 10^3/uL N 3.5-10.[address] [place] [address] [phone] Red Blood Count 4.68 10^6/uL N 4.0-5.4 Hemoglobin 14.3 g/dL N 14.0-18.0 Hematocrit 43 % N 42-52 Mean Corpuscular Volume 93 fL N 80-94 Mean Corpuscular Hemoglobin 31 pg N 27-31 Mean Corpuscular HGB Conc 33 g/dL N 31-36 Red Cell Distribution Width 14 % N 10.5-15 Platelet Count 166 10^3/uL N 150-450 Mean Platelet Volume 10 um3 N 7.4-10.4 Abs Neutrophils 5.7 10^3/uL N 1.5-7.7 Abs Lymphocytes 2.5 10^3/uL N 1.0-4.8 Abs Monocytes 0.8 10^3/uL N 0-0.8 Abs Eosinophils 0.1 10^3/uL N 0-0.6 Abs Basophils 0.1 10^3/uL N 0-0.2 Abs Nucleated RBC 0 10^3/uL N Granulocyte % 61.8 % N 38-83 Lymphocyte % 26.7 % N 25-47 Monocyte % 8.5 % N 1-9 Eosinophil % 1.5 % N 0-6 Basophil % 1.5 % N 0-2 Nucleated Red Blood Cells % 0 N Laboratory test 02/01/2017 [facility] Lactic Acid 0.8 mmol/L N 0.5-2.0 7 finding [address] [place] [address] [phone] Comp Metabolic 06/26/2016 [facility] Sodium 137 mmol/L N 133- 145 Panel [address] [place] [address] [phone] Potassium 4.1 mmol/L N 3.5-5.0 Chloride 104 mmol/L N 101-111 Co2 Carbon Dioxide 26 mmol/L N 22-32 Anion Gap 7 mmol/L N 2-11 Glucose 73 mg/dL N 70-100 Blood Urea Nitrogen 8 mg/dL N 6-24 Creatinine 1.05 mg/dL N 0.67-1.17 BUN/Creatinine Ratio 7.6 Low 8-20 Calcium 9.7 mg/dL N 8.6-10.3 Total Protein 7.4 g/dL N 6.4-8.9 Albumin 4.5 g/dL N 3.2-5.2 Globulin 2.9 g/dL N 2-4 Albumin/Globulin Ratio 1.6 N 1-3 Total Bilirubin 0.70 mg/dL N 0.2-1.0 Alkaline Phosphatase 82 U/L N 34-104 Alt 14 U/L N 7-52 Ast 26 U/L N 13-39 Egfr Non- 72.8 N >60 Egfr 93.6 N >60 8 Laboratory test 06/26/2016 [facility] Vitamin D Total 26.9 Low 30-[address] 25(Oh) ng/[place] [address] [phone] Laboratory test 06/26/2016 [facility] PSA Screening 0.220 N 0- 4.000 [address] ng/[place] [address] [phone] Lipid Profile 06/26/2016 [facility] Triglycerides 49 mg/dL N 10 (Trig/Chol/HDL) [address] [place] [address] [phone] Cholesterol 156 mg/dL N 11 HDL Cholesterol 41.7 mg/dL N 12 LDL Cholesterol 105 mg/dL N 13 1 Because ethnic data is not always readily [...] 15-29 5 Kidney failure <15 (or dialysis) 2 Desirable: <150 Borderline High: 150-199 High: 200-499 Very High: >500 3 Desirable: <200 Borderline High: 200-239 High: >239 4 Low: <40 Desirable: 40-60 High: >60 5 Desirable: <100 Near Optimal: 100-129 Borderline High: 130-159 High: 160-189 Very High: >189 6 Because ethnic data is not always readily [...] 15-29 5 Kidney failure <15 (or dialysis) 7 [facility] Severe Sepsis and Septic Shock Management Bundle Measure requires all lactic acids initially measuring >2.0 mmol/L be repeated. 8 Because ethnic data is not always readily [...] 15-29 5 Kidney failure <15 (or dialysis) 9 Serum levels of PSA measured using the Juliet Odojo DXI Hybritech immunoassay should not be interpreted [...] methods or kits cannot be used interchangeably. 10 Desirable <150 Borderline high 150-199 High 200-499 Very High >500 11 Desirable <200 Borderline high 200-239 High >239 12 Low <40 Desirable: 40-60 High: >60 13 Desirable: <100 mg/dL Near Optimal: 100-129 mg/dL Borderline High: 130-159 mg/dL High: 160-189 mg/dL Very High: >189 mg/dL Procedures Date Code Description Status 12/18/2017 061447982 Diabetic Retinal Eye Exam Completed 12/16/2017 [id number] Diabetic Retinal Eye Exam Completed 11/11/2012 93015 Nerve Conduction 03-04 Studies Completed 11/11/2012 62147 Needle Electromyography Complete, Five Or More Muscles Completed Studied Encounters Type Date Location Provider Dx Diagnosis Office Visit 08/18/2018 [facility] Janna Peña, Z01.818 Encounter for other 1:20p [facility] DO preprocedural examination H26.9 Unspecified cataract F17.210 Nicotine dependence, cigarettes, uncomplicated Z59.0 Homelessness Office Visit 06/22/2018 1:20p [facility] Cullen Loo, H26.[address] [facility] cataract Z12.11 Encounter for screening for malignant neoplasm of colon F41.9 Anxiety disorder, unspecified J44.9 Chronic obstructive pulmonary disease, unspecified F17.210 Nicotine dependence, cigarettes, uncomplicated Office Visit 03/24/2018 2:30p [facility] Internal Megan M48.00 Spinal stenosis , Medicine - Marker, RPA-C site unspecified [address] R53.1 Weakness M54.5 Low back pain Office Visit 03/08/2018 2:00p [facility] Internal Megan Z01.818 Encounter for other Medicine - Marker, RPA-C preprocedural [address] examination K02.9 Dental caries, unspecified R51 Headache H26.9 Unspecified cataract Office Visit 01/14/2018 [facility] Internal Osmany Z01.818 Encounter for other 3:00p Medicine - Zachariah Garcia preprocedural [address] examination Office Visit 01/01/2018 [facility] Internal Juan Carlos Landrum, H26.9 Unspecified 3:20p Medicine - [employer] cataract [address] Z12.11 Encounter for screening for malignant neoplasm of colon K02.9 Dental caries, unspecified F41.9 Anxiety disorder, unspecified J44.9 Chronic obstructive pulmonary disease, unspecified F17.210 Nicotine dependence, cigarettes, uncomplicated R63.4 Abnormal weight loss Office Visit 10/28/2017 11:40a [facility] Internal Zsofia Diallo, M48.00 Spinal stenosis, Medicine - [employer] site unspecified [address] F17.210 Nicotine dependence, cigarettes, uncomplicated J44.9 Chronic obstructive pulmonary disease, unspecified F41.9 Anxiety disorder, unspecified E55.9 Vitamin D deficiency, unspecified M54.5 Low back pain Office Visit 09/02/2017 10:00a [facility] Internal Zsofia Diallo, M48.00 Spinal stenosis, Medicine - [employer] site unspecified [address] F17.210 Nicotine dependence, cigarettes, uncomplicated M54.5 Low back pain Office Visit 08/12/2017 9:20a 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 Internal Medicine Amelia Rodríguez, [employer] B86 Scabies - [address] Office Visit 07/29/2017 10:20a [facility] Internal Medicine Zsofia Diallo, [employer] B86 Scabies - [address] M48.00 Spinal stenosis, site unspecified F17.210 Nicotine dependence, cigarettes, uncomplicated M54.9 Dorsalgia, unspecified Office Visit 05/20/2017 9:00a [facility] Internal Zsofia F17.210 Nicotine Medicine - Diallo, [employer] dependence, [address] cigarettes, uncomplicated J44.9 Chronic obstructive pulmonary disease, unspecified F41.9 Anxiety disorder, unspecified Z23 Encounter for immunization Office Visit 04/15/2017 8:00a [facility] Internal Zsofia Diallo, J44.9 Chronic Medicine - [place] [employer] obstructive Rd pulmonary disease, unspecified F41.9 Anxiety disorder, unspecified M54.5 Low back pain M25.511 Pain in right shoulder F17.210 Nicotine dependence, cigarettes, uncomplicated Z23 Encounter for immunization Office Visit 02/04/2017 10:20a [facility] Internal Zsofia Diallo, E86.0 Dehydration Medicine - [address] [employer] J44.9 Chronic obstructive pulmonary disease, unspecified F17.210 Nicotine dependence, cigarettes, uncomplicated Z23 Encounter for immunization Office Visit 12/10/2016 1:30p [facility] Internal Zsofia Diallo, F41.9 Anxiety disorder, Medicine - [place] [employer] unspecified Rd J44.9 Chronic obstructive pulmonary disease, unspecified F17.210 Nicotine dependence, cigarettes, uncomplicated Z13.220 Encounter for screening for lipoid disorders Z13.1 Encounter for screening for diabetes mellitus M54.5 Low back pain Office Visit 09/03/2016 3:30p [facility] Internal Zsofia Diallo, F41.9 Anxiety disorder, Medicine - [place] [employer] unspecified Rd M54.5 Low back pain M25.511 Pain in right shoulder J44.9 Chronic obstructive pulmonary disease, unspecified F17.210 Nicotine dependence, cigarettes, uncomplicated Office Visit 07/03/2016 8:40a [facility] Internal [place] Radha, M54.5 Low back Medicine - [place] Zachariah pain Rd F41.9 Anxiety disorder, unspecified J44.9 Chronic obstructive pulmonary disease, unspecified F17.210 Nicotine dependence, cigarettes, uncomplicated Office Visit 06/26/2016 1:00p [facility] Internal [place] S32.001A Stable burst Medicine - Zachariah Garcia fracture of [address] unsp lumbar vertebra, init M54.5 Low back pain G56.01 Carpal tunnel syndrome, right upper limb Z00.00 Encntr for general adult medical exam w/o abnormal findings Z13.220 Encounter for screening for lipoid disorders Z12.5 Encounter for screening for malignant neoplasm of prostate Z13.1 Encounter for screening for diabetes mellitus Office Visit 11/25/2014 [facility] Mik 560.9 Intestinal 2:43p Assoc,misha Mercedes M.D. Obstruction Hospitalists Unspec 787.01 Nausea W/ Vomiting Office Visit 11/24/2014 [facility] Mik 560.9 Intestinal 2:43p Assocmisha M.D. Obstruction Hospitalists Unspec 787.01 Nausea W/ Vomiting Office Visit 11/23/2014 11:41a [facility] Sherie 560.2 Volvulus Assoc,AGUSTINA Garces Hospitalists Office Visit 11/23/2014 2:42p [facility] Kali Herman 560.9 Intestinal Assocmisha M.D. Obstruction Hospitalists Unspec 787.01 Nausea W/ Vomiting Office Visit 11/15/2014 10:07a [facility] Teagan 560.9 Intestinal Assoc,misha Arango M.D. Obstruction Hospitalists Unspec 724.5 Backache Unspec Office Visit 03/05/2011 3:30p Neurosurgery Rodney Knight 805.4 [facility] Michelle Serna M.D. Closed W/O Spinal Cord Injury Office Visit 08/03/2009 10:00a DO Not Use Michelle AT [facility] 719.41 Pain Joint Nathalie Slaughter M.D. Shoulder Region V70.0 Examination General Medical Routine AT Health Care Facility Plan of Treatment 09/13/2018 - Cullen Loo, MDZ59.0 HomelessnessComments:We submitted an application for the [facility] today. If you have not heard back by please consider reapplying again. Please complete your disability forms for DSS with Drea.H26.9 Unspecified cataractComments:Follow-up with Dr. Colbert on 10/05/18.F17.210 Nicotine dependence, cigarettes, kztowjbdfpynwP07.11 Encounter for screening for malignant neoplasm of colonComments:Re-referred to Dr. Mike.
[2018-09-21 04:26] VITALS: BP 134/76
== END 2018-09-21 04:25 | disposition home or self-care (01) ==
LOC: ED 01:55
DX: F41.0 Panic disorder [episodic paroxysmal anxiety] (principal); I25.10 Atherosclerotic heart disease of native coronary artery without angina pectoris; I25.2 Old myocardial infarction; F17.210 Nicotine dependence, cigarettes, uncomplicated
CPT/HCPCS: 99282; A9270-GY

== ENCOUNTER 2019-02-02 20:36 | Emergency (ER) | payer OTHER ==
--- OUTSIDE RECORDS SUMMARY | 2019-02-02 20:50 | XMS REPORT | Continuity of Care Document ---
:1960 External Reference #:[id number] Author Name JermainNancy Care Team Providers Name Role Phone Cullen Loo MD Primary Care Physician Unavailable Payers Date Identification Numbers Payment Provider Subscriber Effective: 2016 Policy Number: [id number] [place] [employer] Group Name: [id number] [address] PayID: [id number] [place] [address] Expires: 2016 Policy Number: [id number] Medicaid Bry Flores Group Name: 1 1 [address] PayID: [id number] [place] [address] Problems Active Problems Provider Date Closed fracture of lumbar vertebra without Osmany Garcia M.D. Onset: 02/2016 spinal cord injury Low back pain Osmany Garcia M.D. Onset: 06/26/2016 Carpal tunnel syndrome of right wrist Osmany Garcia M.D. Onset: 2015 Anxiety state Osmany Garcia M.D. Onset: 07/03/2016 Chronic obstructive lung disease Osmany Garcia M.D. Onset: 07/03/2016 Cataract Cullen Loo MD Onset: 06/22/2018 Screening for malignant neoplasm of colon Cullen Loo MD Onset: 06/22/2018 Tobacco user Cullen Loo MD Onset: 06/22/2018 Pruritus of skin Cullen Loo MD Onset: 01/31/2019 Hyperlipidemia screening Cullen Loo MD Onset: 01/31/2019 Social migrant Cullen Loo MD Onset: 09/13/2018 Family History Date Family Member(s) Observation Comments [...] (10 or fewer cigarettes/day) Smoking Status Reviewed: 01/31/19 Light tobacco smoker (10 or fewer cigarettes/day) Exercise Type/Frequency Exercises sporadically Exercise Type/Frequency rides his bike a lot mostly in warmer days Allergies, Adverse Reactions, Alerts Description No Known Drug Allergies Medications Active Medications SIG Qnty Indications Ordering Date Provider Calamine apply to affected 118ml Janna Gallegosgene, 01/05/2019 Lotion area three times DO a day as needed for itching Mometasone Furoate apply to affected 15gm Janna Gallegosgene, 01/05/2019 0.1% area twice a day. DO Cream do not use for more than one week! Flonase Allergy Relief spray into both 19.8ml J30.2 Janna Mariana, 2018 nostrils daily DO 50mcg/Act Suspension Simethicone 1 tab every 6 30units R10.9 Cullen Loo MD 11/03/2018 80mg Chewtabs hours as needed bloating Nicotine use 1 patch 42units F17.210 Cullen Loo MD 11/03/2018 14mg/24HR daily. 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 Misc Hydroxyzine HCL up to three 60tabs F41.9 Cullen Loo MD 08/05/2017 50mg times/day as Tablets needed for itching Nicotine Polacrilex 1 piece of gum 50units F17.210 Juan Carlos Landrum, 2017 2mg q1-2hr [facility] Gum Naproxen take one tablet 120tabs M48.00 Ruddyofigeovani Landrum, 07/29/2017 500mg Tablets by mouth twice a 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 day with food as needed Vitamin D3 ( takes in the 180tabs E55.9 Janna Mariana, 09/03/2016 1000Unit winter) take two DO Tablets tablets by mouth every day History Medications Esomeprazole Magnesium Take 1 tab 30caps R10.9 Cullen Loo MD 11/03/2018 - 20mg daily 11/03/[address] Woods Bowel Prep Kit as directed 354ml Nilam Rodriguez, 10/05/2018 - [employer] 10/19/2018 17.5-3.13-1.6GM/177ML Solution Elimite apply from head 60gm B86 Amelia 08/05/2017 - 5% Cream to feet and Rodríguez, [employer] 01/13/2018 wash off after 12-14 hours Nicotine Polacrilex 1 piece of gum 50units F17.210 Juan Carlos Landrum, 2016 - 2mg Gum q1-2hr [facility] 07/29/2017 Escitalopram Oxalate take 1 tab po 60tabs F41.9 Juan Carlos Landrum, 09/03/2016 - 5mg daily for one [facility] 09/03/2016 Tablets week then increase to 2 tabs daily Sertraline HCL Take Two 60tabs F41.9 Juan Carlos Landrum, 07/08/2016 - 25mg Tablets Tablets By [facility] 05/20/2017 Mouth Every Day Escitalopram Oxalate 1 by mouth 30tabs F41.9 Osmany 07/03/2016 - 5mg every day x 1 Pachikara, 07/08/2016 Tablets week then 2 tab M.D. daily Ibuprofen not using prn Unknown - 600mg Tablets 02/03/2017 Naproxen Not usingAs Unknown - directed 02/03/2017 Tramadol HCL 1 tab 12h as 30tabs [place] - 50mg Tablets needed Radha, 12/10/2016 M.D. Gabapentin 1 by mouth 90caps M54.5 Juan Carlos Landrum, - 300mg Capsules three times a 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 10/28/2017 day as needed Cyclobenzaprine HCL one by mouth Unknown - 10mg two times a day 01/01/2018 Tablets as needed spasm Immunizations CPT Code Status Date Vaccine Reaction Lot # [id number] Given 05/20/2017 Influenza Virus Vaccine, no immediate reaction, [id number] Quadrivalent, Split, pt tolerated well Preservative Free 99302 Given 04/15/2017 Influenza Virus Vaccine, [id number] Quadrivalent, Split, Preservative Free 60185 Given 02/04/2017 Pneumococcal Conjugate no immediate reaction [id number] Vaccine 13 Valent For noted and pt tolerated Intramuscular Use well Vital Signs Date Vital Result Comment 01/31/2019 3:06pm Height 68.5 inches 5'8.50" Weight 135.00 lb Heart Rate 82 /min BP Systolic 115 mmHg BP Diastolic 74 mmHg Body Temperature 97.5 F O2 % BldC Oximetry 98 % BMI (Body Mass Index) 20.2 kg/m2 12/01/2018 2:28pm Weight 143.00 lb Heart Rate 58 /min BP Systolic 132 mmHg BP Diastolic 80 mmHg Respiratory Rate 16 /min Body Temperature 97.7 F O2 % BldC Oximetry 97 % 11/03/2018 10:53am Weight 140.00 lb Heart Rate 52 /min BP Systolic 118 mmHg BP Diastolic 70 mmHg Respiratory Rate 16 /min Body Temperature 97.3 F Pain Level 4 O2 % BldC Oximetry 98 % 10/20/2018 11:16am Heart Rate 60 /min BP Systolic 118 mmHg BP Diastolic 70 mmHg Respiratory Rate 16 /min Body Temperature 98.4 F Pain Level 7 low back O2 % BldC Oximetry 98 % 09/22/2018 3:10pm Heart Rate 64 /min BP Systolic 110 mmHg BP Diastolic 70 mmHg Respiratory Rate 16 /min Body Temperature 98.5 F O2 % BldC Oximetry 96 % 09/13/2018 2:59pm Height 68.5 inches 5'8.50" Weight [...] Result H/L Range Note Comp Metabolic Panel 11/03/2018 [facility] Sodium 137 mmol/L N 135-[address] [place] [address] [phone] Potassium 4.1 mmol/L N 3.5-5.0 Chloride 103 mmol/L N 101-111 Co2 Carbon Dioxide 27 mmol/L N 22-32 Anion Gap 7 mmol/L N 2-11 Glucose 78 mg/dL N 70-100 Blood Urea Nitrogen 10 mg/dL N 6-24 Creatinine 0.89 mg/dL N 0.67-1.17 BUN/Creatinine Ratio 11.2 N 8-20 Calcium 9.5 mg/dL N 8.6-10.3 Total Protein 7.5 g/dL N 6.4-8.9 Albumin 4.5 g/dL N 3.2-5.2 Globulin 3.0 g/dL N 2-4 Albumin/Globulin Ratio 1.5 N 1-3 Total Bilirubin 0.50 mg/dL N 0.2-1.0 Alkaline Phosphatase 123 U/L High 34-104 Alt 12 U/L N 7-52 Ast 22 U/L N 13-39 Egfr Non- 87.5 >60 Egfr 105.9 >60 1 Laboratory test finding 11/03/2018 [facility] Lipase 20 U/L N 11.0-82.[address] [place] [address] [phone] C Reactive Protein 2.61 mg/L N <8.01 CBC Auto Diff 11/03/2018 [facility] White Blood 8.3 10^3/uL N 3.5-10.[address] [place] [address] [phone] Red Blood Count 5.12 10^6/uL N 4.18-5.48 Hemoglobin 15.9 g/dL N 14.0-18.0 Hematocrit 46 % N 36-46 Mean Corpuscular Volume 91 fL N 80-94 Mean Corpuscular Hemoglobin 31 pg N 27-31 Mean Corpuscular HGB Conc 34 g/dL N 31-36 Red Cell Distribution Width 14 % N 10.5-15 Platelet Count 223 10^3/uL N 150-450 Mean Platelet Volume 9.8 fL N 7.4-10.4 Abs Neutrophils 4.7 10^3/uL N 1.5-7.7 Abs Lymphocytes 2.6 10^3/uL N 1.0-4.8 Abs Monocytes 0.6 10^3/uL N 0-0.8 Abs Eosinophils 0.2 10^3/uL N 0-0.6 Abs Basophils 0.1 10^3/uL N 0-0.2 Abs Nucleated RBC 0 10^3/uL Granulocyte % 57.2 % Lymphocyte % 31.7 % Monocyte % 7.3 % Eosinophil % 2.4 % Basophil % 1.4 % Nucleated Red Blood Cells % 0.1 Xray 11/03/2018 [facility] Abdomen/KUB 1 VW <pending> [address] [place] [address] [phone] Comp Metabolic 07/10/2018 [facility] Sodium 135 mmol/L N 135- [address] [place] [address] [phone] Potassium 3.9 mmol/L N 3.5-5.0 Chloride 104 [...] Egfr Non- 88.6 >60 Egfr 107.3 >60 2 Laboratory test 07/10/2018 [facility] C Reactive < 1.00 mg/L N <8.[address] [place] [address] [phone] Alcohol < 10 mg/dL N <10 CBC Auto Diff 07/10/2018 [facility] White Blood 7.1 10^3/uL N 3.5-10.[address] [place] [address] [phone] Red Blood Count 4.90 10^6/uL N 4.00-5.40 [...] Blood Cells % 0.1 Urinalysis Profile 07/10/2018 [facility] Urine Color Yellow [address] [place] [address] [phone] Urine Appearance Clear Urine Specific [place] 1.010 N 1.010-1.030 Urine pH 7.0 N 5-9 Urine Urobilinogen Negative Negative Urine Ketones Negative Negative Urine Protein Negative Negative Urine Leukocytes Negative Negative Urine Blood Negative Negative Urine Nitrite Negative Negative Urine Bilirubin Negative Negative Urine Glucose Negative Negative CBC Auto Diff 09/04/2017 [facility] White Blood 9.4 10^3/uL N 3.5-10.[address] [place] [address] [phone] Red Blood Count 4.95 10^6/uL N 4.0-5.4 [...] Blood Cells % 0.1 Lipid Profile 05/20/2017 [facility] Triglycerides 99 mg/dL N 3 (Trig/Chol/HDL) [address] [place] [address] [phone] Cholesterol 182 mg/dL N 4 HDL Cholesterol 33.6 mg/dL N 5 LDL Cholesterol 129 mg/dL N 6 Laboratory test 05/20/2017 [facility] Glucose 83 mg/dL N 70- 100 finding [address] [place] [address] [phone] Comp Metabolic Panel 02/01/2017 [facility] Sodium 135 mmol/L N 133-145 [address] [place] [address] [phone] Potassium 3.9 mmol/L N 3.5-5.0 Chloride 103 [...] 82.7 N >60 Egfr 106.4 N >60 7 Laboratory test 02/01/2017 [facility] Magnesium 2.1 mg/dL N 1.9-2.[address] [place] [address] [phone] Creatine Kinase(CK) 131 U/L N 10-223 CBC Auto Diff 02/01/2017 [facility] White Blood 9.3 10^3/uL N 3.5-10.[address] [place] [address] [phone] Red Blood Count 4.68 10^6/uL N 4.0-5.4 [...] Cells % 0 N Laboratory test 02/01/2017 [facility] Lactic Acid 0.8 mmol/L N 0.5-2.0 [address] [place] [address] [phone] Lipid Profile 06/26/2016 [facility] Triglycerides 49 mg/dL N 9 (Trig/Chol/HDL) [address] [place] [address] [phone] Cholesterol 156 mg/dL N 10 HDL Cholesterol 41.7 mg/dL N 11 LDL Cholesterol 105 mg/dL N 12 Laboratory test 06/26/2016 [facility] Vitamin D 26.9 ng/mL Low 30-[address] Total 25(Oh) [place] [address] [phone] Comp Metabolic 06/26/2016 [facility] Sodium 137 mmol/L N 133- [address] [place] [address] [phone] Potassium 4.1 mmol/L N 3.5-5.0 Chloride 104 [...] 72.8 N >60 Egfr 93.6 N >60 13 Laboratory test 06/26/2016 [facility] PSA Screening 0.220 ng/mL N 0-4.000 14 finding [address] [place] [address] [phone] 1 Because ethnic data is not always [...] 5 Kidney failure <15 (or dialysis) 2 Because ethnic data is not always readily [...] 15-29 5 Kidney failure <15 (or dialysis) 3 Desirable: <150 Borderline High: 150-199 High: 200-499 Very High: >500 4 Desirable: <200 Borderline High: 200-239 High: >239 5 Low: <40 Desirable: 40-60 High: >60 6 Desirable: <100 Near Optimal: 100-129 Borderline High: 130-159 High: 160-189 Very High: >189 7 Because ethnic data is not always readily [...] 15-29 5 Kidney failure <15 (or dialysis) 8 [facility] Severe Sepsis and Septic Shock Management Bundle Measure requires all lactic acids initially measuring >2.0 mmol/L be repeated. 9 Desirable <150 Borderline high 150-199 High 200-499 Very High >500 10 Desirable <200 Borderline high 200-239 High >239 11 Low <40 Desirable: 40-60 High: >60 12 Desirable: <100 mg/dL Near Optimal: 100-129 mg/dL Borderline High: 130-159 mg/dL High: 160-189 mg/dL Very High: >189 mg/dL 13 Because ethnic data is not always readily [...] 15-29 5 Kidney failure <15 (or dialysis) 14 Serum levels of PSA measured using the Juliet Hukkster DXI Hybritech immunoassay should not be interpreted [...] methods or kits cannot be used interchangeably. Procedures Date Code Description Status 10/12/2018 61228 Colonoscopy Flexible Diagnostic Completed 10/12/2018 [id number] Colonoscopy Completed 12/18/2017 [id number] Diabetic Retinal Eye Exam Completed 12/16/2017 [id number] Diabetic Retinal Eye Exam Completed 11/11/2012 51593 Nerve Conduction 03-04 Studies Completed 11/11/2012 43143 Needle Electromyography Complete, Five Or More Muscles Completed Studied Encounters Type Date Location Provider Dx Diagnosis Office Visit 12/01/2018 DO Not Use Care Janna Peña, F41.9 Anxiety disorder, 2:20p Connections DO unspecified [facility] F17.210 Nicotine dependence, cigarettes, uncomplicated J30.2 Other seasonal allergic rhinitis Office Visit 11/03/2018 11:00a DO Not Use Care Cullen Loo, R10.9 Unspecified Connections abdominal pain [facility] F17.210 Nicotine dependence, cigarettes, uncomplicated F41.9 Anxiety disorder, unspecified Office Visit 10/20/2018 11:00a DO Not Use Care Janna F41.9 Anxiety disorder, Connections Senner, DO unspecified [facility] F17.210 Nicotine dependence, cigarettes, uncomplicated Office Visit 09/22/2018 1:40p DO Not Use Care Janna F41.9 Anxiety disorder, Connections Elner, DO [facility] F17.210 Nicotine dependence, cigarettes, uncomplicated Z59.0 Homelessness H26.9 Unspecified cataract Office Visit 09/13/2018 3:00p DO Not Use Care Cullen Loo MD Z59.0 Homelessness Connections [facility] H26.9 Unspecified cataract Z12.11 Encounter for screening for malignant neoplasm of colon F17.210 Nicotine dependence, cigarettes, uncomplicated Office Visit 08/18/2018 DO Not Use Care Janna Z01.818 Encounter for other 1:20p Connections Mariana, [facility] examination H26.9 Unspecified cataract F17.210 Nicotine dependence, cigarettes, uncomplicated Z59.0 Homelessness Office Visit 06/22/2018 1:20p DO Not Use Care Cullen Loo H26.9 Unspecified Connections cataract [facility] Z12.11 Encounter for screening for malignant neoplasm of colon F41.9 Anxiety disorder, unspecified J44.9 Chronic obstructive pulmonary disease, unspecified F17.210 Nicotine dependence, cigarettes, uncomplicated Office Visit 03/24/2018 2:30p [facility] Internal Megan M48.00 Spinal stenosis , Medicine - Marker, RPA-C site unspecified [address] R53.1 Weakness M54.5 Low back pain Office Visit 03/08/2018 2:00p [facility] Internal Megan Z01.818 Encounter for other Medicine - Marker, RPA-C preprocedural [address] examination K02.9 Dental caries, unspecified R51 Headache H26.9 Unspecified cataract Office Visit 01/14/2018 [facility] Internal Osmany Z01.818 Encounter for other 3:00p Arlene Garcia M.D. preprocedural [address] examination Office Visit 01/01/2018 [facility] Internal Juan Carlos Landrum, H26.9 Unspecified 3:20p Medicine - [facility] cataract [address] Z12.11 Encounter for screening for malignant neoplasm of colon K02.9 Dental caries, unspecified F41.9 Anxiety disorder, unspecified J44.9 Chronic obstructive pulmonary disease, unspecified F17.210 Nicotine dependence, cigarettes, uncomplicated R63.4 Abnormal weight loss Office Visit 10/28/2017 11:40a [facility] Internal Juan Carlos Landrum, M48.00 Spinal stenosis, [facility] - 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 site unspecified [address] F17.210 Nicotine dependence, cigarettes, uncomplicated J44.9 Chronic obstructive pulmonary disease, unspecified F41.9 Anxiety disorder, unspecified E55.9 Vitamin D deficiency, unspecified M54.5 Low back pain Office Visit 09/02/2017 10:00a [facility] Internal Juan Carlos Landrum, M48.00 Spinal stenosis, Medicine - 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 site unspecified [address] F17.210 Nicotine dependence, cigarettes, uncomplicated M54.5 Low back pain Office Visit 08/12/2017 9:20a [facility] Dermatology Tommy Moraleszer, L23.9 Allergic contact MD dermatitis, unspecified cause 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 Office Visit 08/05/2017 10:50a [facility] Internal Medicine Amelia Rodríguez, [employer] B86 Scabies - Suite [address] Office Visit 07/29/2017 10:20a [facility] Internal Medicine Juan Carlos Landrum, 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 B86 Scabies - [address] M48.00 Spinal stenosis, site unspecified F17.210 Nicotine dependence, cigarettes, uncomplicated M54.9 Dorsalgia, unspecified Office Visit 05/20/2017 9:00a [facility] Internal Ruddyofia F17.210 Nicotine Medicine - Diallo, 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 dependence, Suite [address] cigarettes, uncomplicated J44.9 Chronic obstructive pulmonary disease, unspecified F41.9 Anxiety disorder, unspecified Z23 Encounter for immunization Office Visit 04/15/2017 8:00a [facility] Internal Juan Carlos Landrum, J44.9 Chronic Medicine - Suite 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 obstructive R pulmonary disease, unspecified F41.9 Anxiety disorder, unspecified M54.5 Low back pain M25.511 Pain in right shoulder F17.210 Nicotine dependence, cigarettes, uncomplicated Z23 Encounter for immunization Office Visit 02/04/2017 10:20a [facility] Internal Zsofia Diallo, E86.0 Dehydration Medicine - Suite [address] 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 J44.9 Chronic obstructive pulmonary disease, unspecified F17.210 Nicotine dependence, cigarettes, uncomplicated Z23 Encounter for immunization Office Visit 12/10/2016 1:30p [facility] Internal Zsofia Diallo, F41.9 Anxiety disorder, Medicine - Suite 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 unspecified R J44.9 Chronic obstructive pulmonary disease, unspecified F17.210 Nicotine dependence, cigarettes, uncomplicated Z13.220 Encounter for screening for lipoid disorders Z13.1 Encounter for screening for diabetes mellitus M54.5 Low back pain Office Visit 09/03/2016 3:30p [facility] Internal Zsofia Diallo, F41.9 Anxiety disorder, Medicine - Suite 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 unspecified R M54.5 Low back pain M25.511 Pain in right shoulder J44.9 Chronic obstructive pulmonary disease, unspecified F17.210 Nicotine dependence, cigarettes, uncomplicated Office Visit 07/03/2016 8:40a [facility] Internal [place] Kanura, M54.5 Low back Medicine - Suite M.D. pain R F41.9 Anxiety disorder, unspecified J44.9 Chronic obstructive pulmonary disease, unspecified F17.210 Nicotine dependence, cigarettes, uncomplicated Office Visit 06/26/2016 1:00p [facility] Internal [place] S32.001A Stable burst Arlene Garcia M.D. fracture of [address] unsp lumbar vertebra, init M54.5 Low back pain G56.01 Carpal tunnel syndrome, right upper limb Z00.00 Encntr for general adult medical exam w/o abnormal findings Z13.220 Encounter for screening for lipoid disorders Z12.5 Encounter for screening for malignant neoplasm of prostate Z13.1 Encounter for screening for diabetes mellitus Office Visit 11/25/2014 [facility] 560.9 Intestinal 2:43p Assmisha stephens M.D. [facility] Unspec 787.01 Nausea W/ Vomiting Office Visit 11/24/2014 [facility] 560.9 Intestinal 2:43p Assmisha stephens M.D. [facility] Unspec 787.01 Nausea W/ Vomiting Office Visit 11/23/2014 11:41a [facility] 560.2 [facility] AGUSTINA Mckeon Hospitalists Office Visit 11/23/2014 2:42p [facility] K[facility] Ronniealia, 560.9 Intestinal Assocmisha M.D. [facility] Unspec 787.01 Nausea W/ Vomiting Office Visit 11/15/2014 10:07a [facility] 560.9 Intestinal Assoc,misha Arango M.D. [facility] Unspec 724.5 Backache Unspec Office Visit 03/05/2011 3:30p Neurosurgery Rodney Knight 805.4 [facility] Michelle Serna M.D. 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 Shoulder Region V70.0 Examination General Medical Routine AT Health Care Facility Plan of Treatment 01/31/2019 - Cullen Loo MDZ13.220 Encounter for screening for lipoid disordersFollow up:as needed.L29.9 Pruritus, unspecifiedComments:Continue mometasone and hydroxyzine.F17.210 Nicotine dependence, cigarettes, uncomplicatedComments:Please try the nicotine replacement products. There is no time like the present - the best thing youcould do for your health!!!
[2019-02-02] MEDS ORDERED: hydrOXYzine HCL TAB* 50 MG PO ONE (23:36)
--- NOTE | 2019-02-02 23:41 | ED ---
Psychiatric Complaint - HPI Summary HPI Summary: Patient is a 58 year old M presenting to [facility] with a chief complaint of anxiety since 5 days ago due to lack of hydroxyzine medication for symptoms. Patient reports he usually takes 3 pills a day with 1 at night following the instructions of taking the medication as needed. Patient reports that his heart feels weird and that he has not been eating well due to his anxiety. Symptoms aggravated by nothing. Symptoms alleviated by nothing. - History Of Current Complaint Chief Complaint: EDPsychosocial Time Seen by Provider: 02/02/19 23:25 Hx Obtained From: Patient Onset/Duration: Lasting Days - 5, Still Present Timing: Constant Aggravating Factor(s): Other - lack of medications Alleviating Factor(s): Nothing Associated Signs And Symptoms: Positive: Appetite Change - decreased appetite - Allergies/Home Medications Allergies/Adverse Reactions: Allergies Allergy/AdvReac Type Severity Reaction Status Date / Time No Known Allergies Allergy Verified 02/02/19 23:19 PMH/Surg Hx/FS Hx/Imm Hx Endocrine/Hematology History: Denies: Hx Diabetes Cardiovascular History: Reports: Hx Coronary Artery Disease, Hx Myocardial Infarction, Other Cardiovascular Problems/Disorders - "SPOT ON HEART FROM SMOKING OR FROM HEART ATTACK" Denies: Hx Congestive Heart Failure, Hx Hypertension, Hx Pacemaker/ICD Respiratory History: Reports: Other Respiratory Problems/Disorders - SPOT ON LUNG FROM SMOKING GI History: Reports: Hx Gastroesophageal Reflux Disease - going to talk to MD, Hx Obstructive Bowel - Previous SBO, Other GI Disorders - HX of SBO History: Denies: Hx Dialysis, Hx Renal Disease Musculoskeletal History: Reports: Hx Arthritis - Was seeing a PT for shoulder issues, Hx Back Problems - Fell out of a tree as a child, back problems since, Other Musculoskeletal History - DJD, right wrist carpal tunnel Sensory History: Reports: Hx Cataracts, Hx Contacts or Glasses Denies: Hx Hearing Aid Opthamlomology History: Reports: Hx Cataracts, Hx Contacts or Glasses Neurological History: Reports: Hx Headaches - STATES IS RELATED TO EYES, Other Neuro Impairments/Disorders - chronic back pain / HAS HAD IMAGING IN THE PAST Psychiatric History: Reports: Hx Anxiety, Hx Depression - Lives at home, states being very depressed and lonely. Asked for SW consult Denies: Hx Eating Disorder, Hx of Violent Episodes Against Others - Cancer History Hx Chemotherapy: No - Immunization History Date of Tetanus Vaccine: unknown Infectious Disease History: No Infectious Disease History: Denies: Traveled Outside the [place] in Last 30 Days - Family History Known Family History: Positive: Other - Elder-Danlos syndrome, ezcema Family History: Sister - Elder-Danlos syndrome - Social History Alcohol Use: None Alcohol Amount: ALCOHOL FOR 12 YEARS Hx Substance Use: No Substance Use Type: Reports: None Hx Tobacco Use: Yes Smoking Status (MU): Light Every Day Tobacco Smoker Type: Cigarettes Amount Used/How Often: 1/2 pack per day Have You Smoked in the Last Year: Yes Review of Systems Negative: Fever Positive: Anxious All Other Systems Reviewed And Are Negative: Yes Physical Exam - Summary Physical Exam Summary: VITAL SIGNS: Reviewed. GENERAL: Patient is a well-developed and nourished MALE who is lying comfortable in the stretcher. Patient is not in any acute respiratory distress. HEAD AND FACE: No signs of trauma. No ecchymosis, hematomas or skull depressions. No sinus tenderness. EYES: PERRLA, EOMI x 2, No injected conjunctiva, no nystagmus. EARS: Hearing grossly intact. Ear canals and tympanic membranes are within normal limits. MOUTH: Oropharynx within normal limits. NECK: Supple, trachea is midline, no adenopathy, no JVD, no carotid bruit, no c- spine tenderness, neck with full ROM CHEST: Symmetric, no tenderness at palpation LUNGS: Clear to auscultation bilaterally. No wheezing or crackles. CVS: Regular rate and rhythm, S1 and S2 present, no murmurs or gallops appreciated. ABDOMEN: Soft, non-tender. No signs of distention. No rebound no guarding, and no masses palpated. Bowel sounds are normal. EXTREMITIES: FROM in all major joints, no edema, no cyanosis or clubbing. NEURO: Alert and oriented x 3. No acute neurological deficits. Speech is normal and follows commands. Psych: Anxious SKIN: Dry and warm Triage Information Reviewed: Yes Vital Signs On Initial Exam: Initial Vitals Temp Pulse Resp BP Pulse Ox 98.8 F 103 20 179/111 97 02/02/19 20:37 02/02/19 20:37 02/02/19 20:37 02/02/19 20:37 02/02/19 20:37 Vital Signs Reviewed: Yes Diagnostics - Vital Signs Vital Signs Temp Pulse Resp BP Pulse Ox 02/02/19 22:51 99.4 F 91 18 159/78 95 02/02/19 20:37 98.8 F 103 20 179/111 97 - Laboratory Lab Statement: Any lab studies that have been ordered have been reviewed, and results considered in the medical decision making process. - EKG 2304 Cardiac Rate: NL - 83 BPM EKG Rhythm: Sinus Rhythm Summary of EKG Findings: Sinus rhythm at 83 BPM, Normal axis, Normal interval, No ischemic changes Course/Dx - Course Course Of Treatment: Patient is a 58 year old M presenting to [facility] with a chief complaint of anxiety since 5 days ago due to lack of hydroxyzine medication for symptoms. Physical exam shows no abnormalities except he is anxious. Patient was given Hydroxyzine Hcl 50 mg PO in the ED. EKG reveals Sinus rhythm at 83 BPM, Normal axis, Normal interval, No ischemic changes. Physician discussed discharge with patient who agrees to discharge. Patient will be discharged with prescription for hydroxyzine Hcl 50 mg Tabs. Patient intends to follow up with primary care provider within 3 days. - Differential Dx/Clinical Impression Provider Diagnosis: Anxiety Discharge - Sign-Out/Discharge Documenting (check all that apply): Patient Departure - discharge Patient Received Moderate/Deep Sedation with Procedure: No - Discharge Plan Condition: Stable Disposition: HOME Prescriptions: hydrOXYzine HCL TAB* [Atarax TAB 50 MG *] 50 mg PO QID PRN #60 tab PRN Reason: Anxiety Patient Education Materials: Anxiety (ED) Referrals: Janna Peña DO [Primary Care Provider] - 3 Days Additional Instructions: Follow up with primary care provider within 3 days. PLEASE RETURN TO THE ED IMMEDIATELY FOR WORSENING OR CONCERNING SYMPTOMS. - Attestation Statements Document Initiated by Scribe: Yes Documenting Scribe: Nafisa Sepulveda Provider For Whom Lloyd is Documenting (Include Credential): Manav Bey MD Scribe Attestation: IAri Alison Kim, scribed for Manav Bey MD on 02/03/19 at 0524. Status of Scribe Document: Ready
[2019-02-03 00:10] VITALS: BP 148/76
== END 2019-02-03 00:09 | disposition home or self-care (01) ==
LOC: ED 20:36
DX: F41.9 Anxiety disorder, unspecified (principal); I25.10 Atherosclerotic heart disease of native coronary artery without angina pectoris; K21.9 Gastro-esophageal reflux disease without esophagitis; F17.210 Nicotine dependence, cigarettes, uncomplicated; Z79.899 Other long term (current) drug therapy
CPT/HCPCS: 93005; 99282; A9270-GY

== ENCOUNTER 2019-09-24 10:36 | Emergency (ER) | payer OTHER ==
[2019-09-24 10:53] VITALS: BP 126/70
--- OUTSIDE RECORDS SUMMARY | 2019-09-24 11:05 | XMS REPORT | Continuity of Care Document ---
:1960 External Reference #:[id number] Author Name Cullen Loo MD (transmitted by agent of provider Lela Carmen) Address [address] [place] [id number] Care Team Providers Name Role Phone Taylor Kumar NP - Family Care Team Information Physician Anesthesiologist [phone] Cullen Loo MD - Hospitalist Care Team Information Physician Anesthesiologist [phone] Problems Active Problems Provider Date Closed fracture [...] Social migrant Cullen Loo MD Onset: 09/13/2018 Social History Type Date Description Comments Sex Unknown Tobacco Use Start: Unknown currently smokes 1/2 Pack Daily ETOH Use Has consumed alcohol in the past Tobacco Use Start: Unknown Light tobacco smoker (10 or fewer cigarettes/day) Smoking Status Reviewed: 08/10/19 Light tobacco smoker (10 or fewer cigarettes/day) Exercise Type/Frequency Exercises sporadically Exercise Type/Frequency rides his bike a lot mostly in warmer days Allergies, Adverse Reactions, Alerts Description No Known Drug Allergies Medications Active Medications SIG Qnty Indications Ordering Date Provider Fluoxetine HCL 1 by mouth every 30caps F41.0 Cullen Loo MD 08/10/2019 10mg day Capsules Buspirone HCL take 1 tablet 120tabs Cullen Loo MD 08/02/2019 5mg Tablets twice a day for 3 days then increase to 2 tablets twice a day Calamine apply to affected 118ml Janna Peña, 01/05/2019 Lotion area three times DO a day as needed for itching Mometasone Furoate apply to affected 15gm Janna Peña, 01/05/2019 0.1% area twice a day. DO Cream do not use for more than one week! 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 Misc Nicotine Polacrilex 1 piece of gum 50units F17.210 Juan Carlos Landrum, 2017 2mg q1-2hr LEATHER PRODUCTION WORKER Gum Naproxen take one tablet 120tabs M48.00 Juan Carlos Ladnrum, 07/29/2017 500mg Tablets by mouth twice a LEATHER PRODUCTION WORKER day with food as needed Vitamin D3 take two tablets 180tabs E55.9 Cullen Loo MD 09/03/2016 1000Unit by mouth every Tablets day Immunizations CPT Code Status Date Vaccine Reaction Lot # [id number] Given 05/20/2017 Influenza Virus Vaccine, no immediate reaction, 7BL7A Quadrivalent, Split, pt tolerated well Preservative Free 05357 Given 04/15/2017 Influenza Virus Vaccine, [id number] Quadrivalent, Split, Preservative Free 97268 Given 02/04/2017 Pneumococcal Conjugate no immediate reaction [id number] Vaccine 13 Valent For noted and pt tolerated Intramuscular Use well Vital Signs Date Vital Result Comment 08/10/2019 3:02pm Height 68.5 inches 5'8.50" Weight 143.00 lb Heart Rate 72 /min BP Systolic 118 mmHg BP Diastolic 63 mmHg O2 % BldC Oximetry 97 % BMI (Body Mass Index) 21.4 kg/m2 01/31/2019 3:06pm Height 68.5 inches 5'8.50" Weight 135.00 lb Heart Rate 82 /min BP Systolic 115 mmHg BP Diastolic 74 mmHg Body Temperature 97.5 F O2 % BldC Oximetry 98 % BMI (Body Mass Index) 20.2 kg/m2 Results Description No Information Available Procedures Date Code Description Status 10/12/2018 [id number] Colonoscopy Completed 12/18/2017 082319141 Diabetic Retinal Eye Exam Completed 12/16/2017 440562951 Diabetic Retinal Eye Exam Completed Medical Devices Description No Information Available Encounters Description No Information Available Assessments Date Code Description Provider 08/10/2019 F41.0 Panic disorder [episodic paroxysmal anxiety] Cullen Loo MD 08/10/2019 M54.5 Low back pain Cullen Loo MD Plan of Treatment 08/10/2019 - Cullen Loo MDF41.0 Panic disorder [episodic paroxysmal anxiety]New Medication:Fluoxetine HCL 10 mg - 1 by mouth every dayComments:Start the buspirone and the fluoxetine. Establish with either [facility] or Family and Children' sReferral:Family & Childrens Services, Counseling/ZmzzeU67.5 Low back painNew Therapy:Physical Therapy Functional Status Description No Information Available Mental Status Description No Information Available Referrals Refer to Reason for Referral Status Appt Date [facility] Children[facility] Services anxiety Sent [address] [place] [address] [phone]
--- OUTSIDE RECORDS SUMMARY | 2019-09-24 11:05 | XMS REPORT | Continuity of Care Document ---
:1960 External Reference #:[id number] Author Name Janna Peña DO (transmitted by agent of provider Lela Carmen) Address [address] [place] [phone] Care Team Providers Name Role Phone Taylor Kumar NP - Family Care Team Information Microfilm Processor [phone] Cullen Loo MD - Hospitalist Care Team Information Microfilm Processor [phone] Problems Active Problems Provider Date Closed fracture [...] (10 or fewer cigarettes/day) Smoking Status Reviewed: 09/08/19 Light tobacco smoker (10 or fewer cigarettes/day) Exercise Type/Frequency Exercises sporadically Exercise Type/Frequency rides his bike a lot mostly in warmer days Allergies, Adverse Reactions, Alerts Description No Known Drug Allergies Medications Active Medications SIG Qnty Indications Ordering Date Provider Adhesive Tape wrap 4th finger 2units M79.644 Janna Mariana, 09/05/2019 [place] 1/2"X12yd to 3rd finger DO daily 1/2"X12 Tape Cot Finger Splint wear at bedtime 1units M79.644 Janna Mariana, 2019 Misc only for one week DO Calamine apply to affected 118ml Janna Mariana, 01/05/2019 Lotion area three times DO a day as needed for itching Mometasone Furoate apply to affected 15gm Janna Mariana, 01/05/2019 0.1% area twice a day. 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 Misc Nicotine Polacrilex 1 piece of gum 50units F17.210 Juan Carlos Landrum, 2017 2mg q1-2hr [employer]BLER Gum Vitamin D3 take two tablets 180tabs E55.9 Cullen Loo MD 09/03/2016 1000Unit by mouth every Tablets day History Medications Fluoxetine HCL 1 by mouth every 30caps F41.0 Cullen Loo MD 08/10/2019 - 10mg day 09/05/2019 Capsules Buspirone HCL take 1 tablet 120tabs Cullen Loo MD 08/02/2019 - 5mg twice a day for 3 09/08/2019 Tablets days then increase to 2 tablets twice a day Immunizations CPT Code Status Date Vaccine Reaction Lot # [id number] Given 09/05/2019 Pneumonia Vaccine [id number] 26298 Given 09/05/2019 Influenza Virus Vaccine, [id number] Quadrivalent, Split, Preservative Free 03368 Given 05/20/2017 Influenza Virus Vaccine, no immediate [id number] Quadrivalent, Split, reaction, pt Preservative Free tolerated well 58424 Given 04/15/2017 Influenza Virus Vaccine, [id number] Quadrivalent, Split, Preservative Free 37179 Given 02/04/2017 Pneumococcal Conjugate no immediate reaction [id number] Vaccine 13 Valent For noted and pt Intramuscular Use tolerated well Vital Signs Date Vital Result Comment 09/08/2019 2:52pm Height 68.5 inches 5'8.50" Weight 138.00 lb Heart Rate 69 /min BP Systolic Sitting 145 mmHg BP Diastolic Sitting 70 mmHg Body Temperature 96.5 F O2 % BldC Oximetry 98 % BMI (Body Mass Index) 20.7 kg/m2 09/05/2019 10:58am Height 68.5 inches 5'8.50" Weight 138.00 lb Heart Rate 74 /min BP Systolic Sitting 115 mmHg BP Diastolic Sitting 74 mmHg Body Temperature 96.8 F O2 % BldC Oximetry 97 % BMI (Body Mass Index) 20.7 kg/m2 Results Description No Information Available Procedures Date Code Description Status 10/12/2018 80380776 Colonoscopy Completed 12/18/2017 [id number] Diabetic Retinal Eye Exam Completed 12/16/2017 [id number] Diabetic Retinal Eye Exam Completed Medical Devices Description No Information Available Encounters Description No Information Available Assessments Date Code Description Provider 09/08/2019 Z72.0 Tobacco use Janna Peña, DO 09/08/2019 F41.9 Anxiety disorder, unspecified Janna Peña, DO 09/05/2019 M79.644 Pain in right finger(s) Janna Peña, DO 09/05/2019 Z72.0 Tobacco use Janna Peña, DO 09/05/2019 Z23 Encounter for immunization Janna Peña DO 08/10/2019 F41.0 Panic disorder [episodic paroxysmal anxiety] Cullen Loo MD 08/10/2019 M54.5 Low back pain Cullen Loo MD Plan of Treatment Future Appointment(s):12/09/2019 3:00 pm - Janna Peña DO at [facility] - [address]/05/2019 - Janna Peña, DOM79.644 Pain in right finger(s) New Medication:Adhesive Tape [place] 1/2"X12yd 1 /2"X12 - wrap 4th finger to 3rd finger dailyCot Finger Splint - wear at bedtime only for one weekComments: I think this will get better. Wrap/splint it daily at bedtime and rest that finger for one week. If it is not better in one week, get the x-ray.Z72.0 Tobacco useZ23 Encounter for immunization Functional Status Description No Information Available Mental Status Description No Information Available Referrals Refer to Reason for Referral Status Appt Date [facility] anxiety Sent [address] [place] [address] [phone]
--- OUTSIDE RECORDS SUMMARY | 2019-09-24 11:05 | XMS REPORT | Continuity of Care Document ---
:1960 External Reference #:[id number] Author Name Lang Colbert, OD Address [address] [place] [address] Care Team Providers Name Role Phone Santhosh Xavier NP Care Team Information Accountancy Professor [phone] [facility] Care Team Information Accountancy Professor Cullen Loo M.D. Care Team Information Accountancy Professor [phone] Problems Description No Information Available Social History Type Date Description Comments Sex Unknown ETOH Use Has consumed alcohol in the past Tobacco Use Start: Unknown Light tobacco smoker (10 or fewer cigarettes/day) Smoking Status Reviewed: 10/05/18 Light tobacco smoker (10 or fewer cigarettes/day) Allergies, Adverse Reactions, Alerts Description No Known Drug Allergies Medications Active Medications SIG Qnty Indications Ordering Provider Date Hydroxyzine HCL Unknown 25mg Tablets Naproxen 500mg Unknown Tablets Immunizations Description No Information Available Vital Signs Date Vital Result Comment 10/05/2018 11:10am Intraocular Pressure Right Eye 18 mmHg Intraocular Pressure Left Eye 18 mmHg 09/07/2018 11:33am Intraocular Pressure Right Eye 16 mmHg Intraocular Pressure Left Eye 18 mmHg Results Description No Information Available Procedures Description No Information Available Medical Devices Description No Information Available Encounters Description No Information Available Assessments Date Code Description Provider 09/19/2019 H26.493 Other secondary cataract, bilateral Lang Colbert, OD Plan of Treatment No Information Available Functional Status Description No Information Available Mental Status Description No Information Available Referrals Description No Information Available
--- OUTSIDE RECORDS SUMMARY | 2019-09-24 11:05 | XMS REPORT | Continuity of Care Document ---
:1960 External Reference #:[id number] Author Name Janna Peña DO (transmitted by agent of provider Lela Carmen) Address [address] [place] [phone] Care Team Providers Name Role Phone Taylor Kumar NP - Family Care Team Information Optometric Aide [phone] Cullen Loo MD - Hospitalist Care Team Information Optometric Aide [phone] Problems Active Problems Provider Date Closed fracture [...] (10 or fewer cigarettes/day) Smoking Status Reviewed: 09/05/19 Light tobacco smoker (10 or fewer cigarettes/day) Exercise Type/Frequency Exercises sporadically Exercise Type/Frequency rides his bike a lot mostly in warmer days Allergies, Adverse Reactions, Alerts Description No Known Drug Allergies Medications Active Medications SIG Qnty Indications Ordering Date Provider Adhesive Tape wrap 4th finger 2units M79.644 Janna Mariana, 09/05/2019 [place] 1/2"X12yd to 3rd finger DO daily 1/2"X12 Tape Cot Finger Splint wear at bedtime 1units M79.644 Janna Mariana, 2019 Misc only for one week DO Buspirone HCL take 1 tablet 120tabs Cullen Loo MD 08/02/2019 5mg Tablets twice a day for 3 days then increase to 2 tablets twice a day Calamine apply to affected 118ml Janna Mariana, [...] Juan Carlos Landrum, 10/28/2017 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 Misc Nicotine Polacrilex 1 piece of gum 50units F17.210 Juan Carlos Landrum, 2017 2mg q1-2hr TOP SPOTTER Gum Naproxen take one tablet 120tabs M48.00 Ruddyofigeovani Zimmermank, 07/29/2017 500mg Tablets by mouth twice a TOP SPOTTER day with food as needed Vitamin D3 take two tablets 180tabs E55.9 Cullen Loo MD 09/03/2016 1000Unit by mouth every Tablets day History Medications Fluoxetine HCL 1 by mouth every 30caps F41.0 Cullen Loo MD 08/10/2019 - 10mg day 09/05/2019 Capsules Immunizations CPT Code Status Date Vaccine Reaction Lot # [id number] Given 09/05/2019 Pneumonia Vaccine [id number] 47687 Given 05/20/2017 Influenza Virus Vaccine, no immediate reaction, 7BL7A Quadrivalent, Split, pt tolerated well Preservative Free 92302 Given 04/15/2017 Influenza Virus Vaccine, [id number] Quadrivalent, Split, Preservative Free 52322 Given 02/04/2017 Pneumococcal Conjugate no immediate reaction [id number] Vaccine 13 Valent For noted and pt tolerated Intramuscular Use well Vital Signs Date Vital Result Comment 09/05/2019 10:58am Height 68.5 inches 5'8.50" Weight 138.00 lb Heart Rate 74 /min BP Systolic Sitting 115 mmHg BP Diastolic Sitting 74 mmHg Body Temperature 96.8 F O2 % BldC Oximetry 97 % BMI (Body Mass Index) 20.7 kg/m2 08/10/2019 3:02pm Height 68.5 inches 5'8.50" Weight 143.00 lb Heart Rate 72 /min BP Systolic 118 mmHg BP Diastolic 63 mmHg O2 % BldC Oximetry 97 % BMI (Body Mass Index) 21.4 kg/m2 Results Description No Information Available Procedures Date Code Description Status 10/12/2018 [id number] Colonoscopy Completed 12/18/2017 466483984 Diabetic Retinal Eye Exam Completed 12/16/2017 [id number] Diabetic Retinal Eye Exam Completed Medical Devices Description No Information Available Encounters Description No Information Available Assessments Date Code Description Provider 09/05/2019 M79.644 Pain in right finger(s) Janna Peña, DO 09/05/2019 Z72.0 Tobacco use Janna Peña, DO 08/10/2019 F41.0 Panic disorder [episodic paroxysmal anxiety] Cullen Loo MD 08/10/2019 M54.5 Low back pain Cullen Loo MD Plan of Treatment 09/05/2019 - Janna Peña, DOM79.644 Pain in right finger(s)New Medication: Adhesive Tape [place] 1/2"X12yd 1 /2"X12 - wrap 4th finger to 3rd finger dailyCot Finger Splint - wear at bedtime only for one weekNew Xrays:Finger Right Ring, Scheduled: 09/05/19Comments:I think this will get better. Wrap/ splint it daily at bedtime and rest that finger for one week. If it is not better in one week, get the x-ray.Z72.0 Tobacco use Functional Status Description No Information Available Mental Status Description No Information Available Referrals Refer to Reason for Referral Status Appt Date [facility] anxiety Sent [address] [place] [address] [phone]
[2019-09-24 11:19] LABS: Influenza A Molecular POSITIVE (Negative)
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
== END 2019-09-24 11:27 | disposition home or self-care (01) ==
LOC: ED 10:36
DX: J11.1 Influenza due to unidentified influenza virus with other respiratory manifestations (principal); R50.9 Fever, unspecified; R10.9 Unspecified abdominal pain; I25.10 Atherosclerotic heart disease of native coronary artery without angina pectoris; I25.2 Old myocardial infarction; K21.9 Gastro-esophageal reflux disease without esophagitis; F41.9 Anxiety disorder, unspecified; F17.210 Nicotine dependence, cigarettes, uncomplicated
CPT/HCPCS: 99282

== ENCOUNTER 2019-11-03 11:42 | Inpatient (IN) | payer OTHER ==
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
[2019-11-03] MEDS ORDERED: Morphine 4 MG/ML VIAL (1 ml) 4 MG/ML VIAL IV ONE (11:49)
[2019-11-03] MEDS ORDERED: NS 0.9% 1000 ML** 1,000 ML IV ONE (11:49)
[2019-11-03] MEDS ORDERED: Ondansetron INJ* 2 MG/ML VIAL IV ONE (11:49)
--- OUTSIDE RECORDS SUMMARY | 2019-11-03 12:02 | XMS REPORT | Continuity of Care Document ---
:1960 External Reference #:[id number] Author Name Janna Peña DO (transmitted by agent of provider Nicolette Suh) Address [address] [place] [id number] Care Team Providers Name Role Phone Taylor Kumar NP - Family Care Team Information Bleach Boiler Packer [phone] Cullen Loo MD - Hospitalist Care Team Information Bleach Boiler Packer [phone] Problems Active Problems Provider Date Closed fracture [...] (10 or fewer cigarettes/day) Smoking Status Reviewed: 09/27/19 Light tobacco smoker (10 or fewer cigarettes/day) Exercise Type/Frequency Exercises sporadically Exercise Type/Frequency rides his bike a lot mostly in warmer days Allergies, Adverse Reactions, Alerts Description No Known Drug Allergies Medications Active Medications SIG Qnty Indications Ordering Date Provider Calamine apply to 118ml Janna Mariana, 01/05/2019 Lotion affected area DO three times a day as needed for itching Mometasone Furoate apply to 15gm Janna Mariana, 01/05/2019 0.1% affected area DO Cream twice a day. do not use for more than one week! Flonase Allergy Relief spray into both 19.8ml J30.2 Janna Mariana, 2018 nostrils daily DO 50mcg/Act Suspension Simethicone 1 tab every 6 30units R10.9 Cullen Loo MD 11/03/2018 80mg Chewtabs hours as needed bloating Nicotine use 1 patch 42units F17.210 Cullen Loo MD 11/03/2018 14mg/24HR Patches daily. 24HR Protonix 1 by mouth once 30tabs Cullen Loo MD 11/03/[address] a day Nicotrol 2 every 2 hours 168units F17.210 Janna Peña, 10/20/2018 10mg Inhaler as needed DO Cyclobenzaprine HCL 1 by mouth two 90tabs Cullen Loo MD 09/22/2018 10mg times a day as Tablets needed Nicotine Polacrilex 1 piece of gum 50units F17.210 Juan Carlos Landrum, 2017 2mg Gum q1-2hr CARE PROVIDER Vitamin D3 take two 180tabs E55.9 Cullen Loo MD 09/03/2016 1000Unit Tablets tablets by mouth every day Tamiflu 1 tab by mouth 10caps Unknown 75mg Capsules every day for 5 days History Medications Adhesive Tape wrap 4th finger 2units M79.644 Janna Peña, 09/05/2019 - [place] to 3rd finger DO 09/27/2019 1/2"X12yd daily 1/2"X12 Tape Cot Finger Splint wear at bedtime 1units M79.644 Janna Peña 2019 - only for one week DO 09/27/2019 Misc Fluoxetine HCL 1 by mouth every 30caps F41.0 Cullen Loo MD 08/10/2019 - 10mg day 09/05/2019 Capsules Buspirone HCL take 1 tablet 120tabs Cullen Loo MD 08/02/2019 - 5mg twice a day for 3 09/08/2019 Tablets days then increase to 2 tablets twice a day Immunizations CPT Code Status Date Vaccine Reaction Lot # [id number] Given 09/05/2019 Pneumonia Vaccine [id number] Given 09/05/2019 Influenza Virus Vaccine, [id number] Quadrivalent, Split, Preservative Free 09613 Given 05/20/2017 Influenza Virus Vaccine, no immediate [id number] Quadrivalent, Split, reaction, pt Preservative Free tolerated well 37079 Given 04/15/2017 Influenza Virus Vaccine, [id number] Quadrivalent, Split, Preservative Free [id number] Given 02/04/2017 Pneumococcal Conjugate no immediate reaction [id number] Vaccine 13 Valent For noted and pt Intramuscular Use tolerated well Vital Signs Date Vital Result Comment 09/27/2019 1:24pm Height 68.5 inches 5'8.50" Weight 138.00 lb Heart Rate 62 /min BP Systolic Sitting 122 mmHg BP Diastolic Sitting 65 mmHg Body Temperature 97.8 F O2 % BldC Oximetry 98 % BMI (Body Mass Index) 20.7 kg/m2 09/08/2019 2:52pm Height 68.5 inches 5'8.50" Weight 138.00 lb Heart Rate 69 /min BP Systolic Sitting 145 mmHg BP Diastolic Sitting 70 mmHg Body Temperature 96.5 F O2 % BldC Oximetry 98 % BMI (Body Mass Index) 20.7 kg/m2 Results Test Acquired Date Facility Test Result H/L Range Note Influenza A & B 09/24/2019 [facility] Flu AB (SEE NOTE) [address] Disclaimer [place] [id number] [phone] Influenza A Molecular POSITIVE Abnormal Negative 2 1 Suboptimal collection technique may reduce sensitivity of test. Refer to the [facility] Test Catalog for collection information: [email or web address] As with all diagnostic procedures, the laboratory results obtained should be used in conjunction with other clinical information available to the physician, including confirmation by another method, as applicable. 2 Framing Carpenter: [id number] Procedures Date Code Description Status 10/12/2018 14230721 Colonoscopy Completed 12/18/2017 153118923 Diabetic Retinal Eye Exam Completed 12/16/2017 [id number] Diabetic Retinal Eye Exam Completed Medical Devices Description No Information Available Encounters Type Date Location Provider Dx Diagnosis Office Visit 09/27/2019 [facility] Internal Janna Mariana, J09.x2 Flu due to ident 1:20p Medicine - Suite DO novel influenza A R virus w oth resp manifest Office Visit 09/08/2019 [facility] Janna Peña, Z72.0 Tobacco use 3:00p Medicine - Suite DO R F41.9 Anxiety disorder, unspecified Office Visit 09/05/2019 11:00a [facility] Internal Janna M79.644 Pain in right Medicine - Suite Mariana, finger(s) R Z72.0 Tobacco use Z23 Encounter for immunization Assessments Date Code Description Provider 09/27/2019 J09.x2 Influenza due to identified novel influenza A Janna Peña, virus with other respiratory manifestations 09/08/2019 Z72.0 Tobacco use Janna Peña, DO 09/08/2019 F41.9 Anxiety disorder, unspecified Janna Senner, DO 09/05/2019 M79.644 Pain in right finger(s) Janna Peña, DO 09/05/2019 Z72.0 Tobacco use Janna Peña, DO 09/05/2019 Z23 Encounter for immunization Janna Peña, 08/10/2019 F41.0 Panic disorder [episodic paroxysmal anxiety] Cullen Loo MD 08/10/2019 M54.5 Low back pain Cullen Loo MD Plan of Treatment Future Appointment(s):12/09/2019 3:00 pm - Janna Peña DO at [facility] Internal Medicine - Suite R009/05/2019 - Janna Peña, DOM79.644 Pain in right finger(s) New Medication:Adhesive Tape [place] 1/2"X12yd 1 /2"X12 - wrap 4th finger [...] [facility] anxiety Sent [address] [place] [address] [phone]
[2019-11-03 13:21] LABS: ABS Basophils 0.1 10^3/ul (0-0.2); ABS Eosinophils 0.1 10^3/ul (0-0.6); ABS Lymphocytes 1.3 10^3/ul (1.0-4.8); ABS Monocytes 0.7 10^3/ul (0-0.8); ABS Neutrophils 7.7 10^3/ul (1.5-7.7); Eosinophil % 0.6 %; Hematocrit 43 % (42-52); Hemoglobin 14.7 g/dL (14.0-18.0); Lymphocyte % 12.9 %; Mean Corpuscular HGB Conc 34 g/dL (31-36); Mean Corpuscular Hemoglobin 31 pg (27-31); Mean Corpuscular Volume 91 fL (80-94); Mean Platelet Volume 9.1 fL (7.4-10.4); Platelet Count 210 10^3/uL (150-450); Red Blood Count 4.72 10^6 /uL (4.18-5.48); Red Cell Distribution Width 14 % (10-15); White Blood Count 9.8 10^3/uL (3.5-10.8)
[2019-11-03 13:40] LABS: Albumin 3.9 g/dL (3.2-5.2); Albumin/Globulin Ratio 1.2 (1-3); BUN/Creatinine Ratio 10.3 (8-20); Calcium 8.7 mg/dL (8.6-10.3); EGFR African American 122.9 (>60); EGFR Non-African American 101.5 (>60); Globulin 3.2 g/dL (2-4); Potassium 4.2 mmol/L (3.5-5.0); Total Bilirubin 0.4 mg/dL (0.2-1.0); Total Protein 7.1 g/dL (6.4-8.9)
[2019-11-03] MEDS ORDERED: Iohexol 300* (CONTRAST) 10 ML SDV IV ONE (13:42)
[2019-11-03] MEDS ORDERED: Morphine INJ* 2 MG/ML 1 ML SYRINGE (TWO MG - NEW SYRINGE VERSION) IV PRN (14:42)
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
[2019-11-03] MEDS ORDERED: Ondansetron INJ* 2 MG/ML VIAL IV PRN (15:19)
[2019-11-03] MEDS: NS 0.9% 1000 ML** 1,000 ML IV SCH (15:28)
--- NOTE | 2019-11-03 15:45 | HP ---
History of Present Illness - History of Present Illness Reason for Visit: Abdominal pain History of Present Illness: 59 yo M history of coronary artery disease, two episodes of SBO in the past, back pain, anxiety and depression, presented to [facility] with upper abdominal pain for 1 day. He was well until this morning 2am in the morning, he was awoken with sharp, throbbing abdominal pain. It associated with vomiting. He actually had one episode of regular BM at 12pm, he felt improved after the bowel movement. But the pain recurs so he came to hospital. When I saw him in ED, he had no nausea or vomiting, mild abdominal pain. He stated that this was his third time of SBO, the last two times he improved with conservative management, he didn't know the cause of it, the last SBO was 5 years ago. In ED, he was given zofran, morphine one dose for symptom relieve. He had a CTAP showing dilated loops of small bowel and stomach, it's consistent with small bowel obstruction with a tansition in the right mid abdomen. He was assessed by surgical team in ED as well, who suggested to hold off NGT for now, bowel rest, NPO with IVF. Patient denied any cough, any fever or chills. He has no contact with [facility] patients so far. He did have flu in September and resolved afterwards. - Past Medical History Past Medical History: 1. coronary artery disease 2. hx of BSO 3. back pain 4. cataracts 5. Headache 6. Anxiety and depression 7. Hx of SBO - Past Surgical History Past Surgical History: Cataracts surgery - Past Family History Past Family History: family history of Baldomero-Danlos (sister) - Past Social History Past Social History: He lives in a boarding house where total 12 people live together with only two bathrooms. He is a current smoker, less than half a pack since age 12. No alcohol use, he stays sober for 10+ years when he needs to take care of her mom. No drug use. He would like full code, his health care proxy would be his brother, Satish Flores, who lives locally in [place]. Medications: Home Medications Medication Instructions Recorded Confirmed Type Cholecalciferol (Vitamin D3) 2,000 unit PO DAILY 09/22/18 11/03/19 History [Vitamin D3] Cyclobenzaprine (NF) 5 mg PO BID PRN 11/03/19 11/03/19 History [Cyclobenzaprine 5 MG (NF)] hydrOXYzine HCL TAB* [Atarax TAB 50 mg PO BID PRN 11/03/19 11/03/19 History 50 MG *] Allergies/Adverse Reactions: Allergies Allergy/AdvReac Type Severity Reaction Status Date / Time No Known Allergies Allergy Verified 09/24/19 10:54 Review of Systems - Review of Systems Constitutional: Negative: Fever, Chills, Sweats, Weakness, Malaise, Other Eyes: Negative: Pain, Vision Change, Conjunctivae Inflammation, Eyelid Inflammation, Redness, Other ENT: Negative: Ear Pain, Ear Discharge, Nose Pain, Nose Discharge, Nose Congestion, Mouth Pain, Mouth Swelling, Throat Pain, Throat Swelling, Other Respiratory: Negative: Cough, Dry, Shortness of Breath, Hemoptysis, SOB with Excertion, Pleuritic Pain, Sputum, Wheezing Cardiovascular: Negative: Chest Pain, Palpitations, Orthopnea, Paroxysmal Noc. Dyspnea, Edema, Light Headedness, Other Gastrointestinal: Positive: Nausea, Vomiting, Abdominal Pain. Negative: Diarrhea, Constipation, Melena, Hematochezia, Other Musculoskeletal: Negative: Neck Pain, Shoulder Pain, Arm Pain, Hand Pain, Leg Pain, Foot Pain, Other Skin: Negative: Rash, Lesions, Bhargav, Bruising, Other Neurological/Mental Status: Negative: Weakness, Numbness, Incoordination, Change in Speech, Confusion, Seizures, Other Exam Vital Signs: Vital Signs (72 hours) 11/03/19 11/03/19 11/03/19 11:47 12:14 15:22 Temperature 97.3 F 97.8 F Pulse Rate 71 59 Respiratory 18 18 16 Rate Blood Pressure 164/80 164/80 (mmHg) O2 Sat by Pulse 98 98 Oximetry Exam: GEN: alert, comfortable, sitting on stretcher. NEck: JVP not elevated Heart: S2S2, no murmur Lung: clear on auscultation Abdomen: soft, non distended. LLQ mild tendernss, BS active. Extremity: no cyanosis, no edema. Result Diagrams: 11/04/19 05:45 11/04/19 05:45 EKG Data: EKG: sinus bradycardia, HR 59, left ventricular hypertrophy. Assessment/Plan - Assessment/Plan Assessment: 1 yo M history of coronary artery disease, two episodes of SBO in the past, back pain, anxiety and depression, presented to [facility] with upper abdominal pain for 1 day, found to have SBO in CTAP. We will admit him to [facility] for further management Plan: 1. Small bowel obstruction - cause unclear, no previous surgery - possibilities including congenital adhesions or adhesions from trauma - npo - iv fluid - morphine prn, zofran for symptoms - appreciate surgical input and follow up. - Hold off ngt for now as patient has no emesis - repeat CBC, CMP tomorrow 2. back pain - no pain at this moment - continue cyclobenzaparine 3. mild HTN - mildly BP elevation - continue to watch 4. Coronary artery disease - self reported history - not on med 5. DVT prophylaxisa - sc lovenox 6. Full code Attestation Documenting Resident: Scott Supervising Physician: Mariana Attestation: This service has been performed in part by a resident under the direction of a teaching physician.IMariana, performed the service, or was physically present during the critical, or aguiar portions of the service, furnished by the resident. I participated in the management of the patient.
[2019-11-03] MEDS: Enoxaparin(*) 40 MG/0.4 ML SYR SUBCUT SCH (15:50)
--- NOTE | 2019-11-03 18:28 | CONS ---
CC: Dr. Janna Peña, [facility]* SURGICAL CONSULT NOTE: DATE OF CONSULT: 11/03/19 The patient was seen with Dr. Dominguez in the ED for initial consultation. ATTENDING SURGEON: Dr. Geneva Dominguez. CHIEF COMPLAINT: Abdominal pain, nausea, and vomiting. HISTORY OF PRESENT ILLNESS: This is a 59-year-old male who in the early hours this morning was awakened with sharp midabdominal pain. He did have some emesis at home and also states that he did have bowel movement with passage of some flatus this morning prior to coming to the ED. He states that the bowel movement was otherwise normal. His pain persisted nonetheless and he came to the ED. He states that it feels similar to prior episodes of small bowel obstruction, most recent being in 2014. Each of these prior episodes resolved with conservative treatment. He has no history of abdominal surgery. He did undergo a normal screening colonoscopy with Dr. Mike in 2019. PAST MEDICAL HISTORY: Significant for anxiety and chronic back pain. PAST SURGICAL HISTORY: No history of surgery. MEDICATIONS: Listed in his profile include: 1. Cyclobenzaprine 5 mg b.i.d. p.r.n. 2. Hydroxyzine 50 mg p.o. b.i.d. p.r.n. 3. Vitamin D 2000 international units once daily. ALLERGIES: None known. FAMILY HISTORY: Outlined in his admission history and physial. SOCIAL HISTORY: He states that he currently lives in a boarding house and that he has also been homeless in the past. He initially states that he had no family support but then mentioned that he was going to call his brother to discuss his admission. He is a current smoker one half pack per day down from previous one and a half packs per day with intension to quit. He has a past history of alcohol abuse but states that he has not had any alcohol recently. REVIEW OF SYSTEMS: No additions to the above other than . No hematuria, dysuria, or increased frequency. PHYSICAL EXAM: Height 5 feet 8 inches, weight 140 pounds, temperature 98.4, blood pressure 146/74, pulse 56, respirations 16, room air saturation 99%. General: Well-nourished, somewhat disheveled appearing male, in no acute distress. Skin: Warm and dry. No suspicious rashes or lesions noted. HEENT: Pupils are equal, round, and reactive. EOMs intact. No conjunctival pallor. Oropharynx: Few remaining broken teeth, otherwise no intraoral lesions. Neck: No lymphadenopathy, thyromegaly or masses. Heart: Regular rate and rhythm. No murmur appreciated. Lungs: Clear to auscultation, slightly decreased breath sounds at the left base. Abdomen: Mildly distended (per the patient), bowel sounds are active, slightly hypoactive. Soft with tenderness primarily in the lower midabdomen. There is some tympany. There are no peritoneal signs. No palpable masses, organomegaly, or hernias. Rectal: (By Dr. Dominguez) Otherwise normal with small amount of light brown stool on glove. Back: No spinous process or CVA tenderness. Extremities: No edema. Neurological: Grossly intact though he is somewhat agitated but appears alert and oriented. DIAGNOSTIC STUDIES/LAB DATA: Of note, CBC is essentially normal with a white blood cell count of 9.8 and a normal differential. Likewise, chemistries were essentially normal including the lactic acid of 0.6. Normal liver function tests and normal lipase. CT scan of the abdomen and pelvis was reviewed personally and with Dr. Dominguez. This shows multiple dilated loops of small bowel and moderate dilation of the stomach. There may be a zone of transition in the right midabdomen (see separate report). There are collapsed loops of bowel in the pelvis. IMPRESSION: Small bowel obstruction (third episode with 5-year intervals) in a patient with no prior abdominal surgery. PLAN: Admission to the hospitalist service. He will need IV hydration, pain and nausea control as well as serial exams. I will order a plain film of the abdomen for tomorrow morning. We will follow him regularly with expectation of resolution though the patient does understand the potential need for surgical intervention. AGUSTINA GENTILE [id number]/[facility] #: [id number] MTDD
[2019-11-04] MEDS: NS 0.9% 1000 ML** 1,000 ML IV SCH ×2 (02:03→12:10)
[2019-11-04 06:15] LABS: ABS Basophils 0.1 10^3/ul (0-0.2); ABS Eosinophils 0.2 10^3/ul (0-0.6); ABS Lymphocytes 2.1 10^3/ul (1.0-4.8); ABS Monocytes 0.5 10^3/ul (0-0.8); ABS Neutrophils 4.1 10^3/ul (1.5-7.7); Eosinophil % 2.6 %; Hematocrit 40 % (42-52); Hemoglobin 13.8 g/dL (14.0-18.0); Mean Corpuscular HGB Conc 34 g/dL (31-36); Mean Corpuscular Hemoglobin 31 pg (27-31); Mean Corpuscular Volume 91 fL (80-94); Mean Platelet Volume 9.5 fL (7.4-10.4); Nucleated Red Blood Cells % 0.1; Platelet Count 205 10^3/uL (150-450); Red Blood Count 4.41 10^6 /uL (4.18-5.48); Red Cell Distribution Width 14 % (10-15)
[2019-11-04 06:24] LABS: Albumin 3.3 g/dL (3.2-5.2); Albumin/Globulin Ratio 1.1 (1-3); BUN/Creatinine Ratio 10.7 (8-20); Calcium 8.4 mg/dL (8.6-10.3); EGFR African American 112.8 (>60); EGFR Non-African American 93.2 (>60); Potassium 4.2 mmol/L (3.5-5.0); Total Bilirubin 0.5 mg/dL (0.2-1.0); Total Protein 6.3 g/dL (6.4-8.9)
--- NOTE | 2019-11-04 09:39 | PN ---
Progress Note - Progress Note Date of Service: 11/04/19 Note: Surgical progress note S: Reports he is feeling quite a bit better. No ABD pain, nausea, emesis, fever , chills. Does not feel abodmen is distended. Is passing loose BMs and flatus now. Complains of headache. O: Temp Pulse Resp BP Pulse Ox 98.9 F 65 14 127/60 98 11/04/19 07:37 11/04/19 07:37 11/04/19 07:37 11/04/19 07:37 11/04/19 07:37 Laboratory Last Values WBC 7.0 10^3/uL (3.5-10.8) 11/04/19 05:45 RBC 4.41 10^6 /uL (4.18-5.48) 11/04/19 05:45 Hgb 13.8 g/dL (14.0-18.0) L 11/04/19 05:45 Hct 40 % (42-52) L 11/04/19 05:45 MCV 91 fL (80-94) 11/04/19 05:45 MCH 31 pg (27-31) 11/04/19 05:45 MCHC 34 g/dL (31-36) 11/04/19 05:45 RDW 14 % (10-15) 11/04/19 05:45 Plt Count 205 10^3/uL (150-450) 11/04/19 05:45 MPV 9.5 fL (7.4-10.4) 11/04/19 05:45 Neut % (Auto) 58.3 % 11/04/19 05:45 Lymph % (Auto) 30.0 % 11/04/19 05:45 Slope % (Auto) 7.8 % 11/04/19 05:45 Eos % (Auto) 2.6 % 11/04/19 05:45 Baso % (Auto) 1.3 % 11/04/19 05:45 Absolute Neuts (auto) 4.1 10^3/ul (1.5-7.7) 11/04/19 05:45 Absolute Lymphs (auto) 2.1 10^3/ul (1.0-4.8) 11/04/19 05:45 Absolute Monos (auto) 0.5 10^3/ul (0-0.8) 11/04/19 05:45 Absolute Eos (auto) 0.2 10^3/ul (0-0.6) 11/04/19 05:45 Absolute Basos (auto) 0.1 10^3/ul (0-0.2) 11/04/19 05:45 Absolute Nucleated RBC 0.0 10^3/ul 11/04/19 05:45 Nucleated RBC % 0.1 11/04/19 05:45 Sodium 135 mmol/L (135-145) 11/04/19 05:45 Potassium 4.2 mmol/L (3.5-5.0) 11/04/19 05:45 Chloride 105 mmol/L (101-111) 11/04/19 05:45 Carbon Dioxide 26 mmol/L (22-32) 11/04/19 05:45 Anion Gap 4 mmol/L (2-11) 11/04/19 05:45 BUN 9 mg/dL (6-24) 11/04/19 05:45 Creatinine 0.84 mg/dL (0.67-1.17) 11/04/19 05:45 Est GFR ( Amer) 112.8 (>60) 11/04/19 05:45 Est GFR (Non-Af Amer) 93.2 (>60) 11/04/19 05:45 BUN/Creatinine Ratio 10.7 (8-20) 11/04/19 05:45 Glucose 70 mg/dL (70-100) 11/04/19 05:45 Lactic Acid 0.6 mmol/L (0.5-2.0) 11/03/19 13:15 Calcium 8.4 mg/dL (8.6-10.3) L 11/04/19 05:45 Total Bilirubin 0.50 mg/dL (0.2-1.0) 11/04/19 05:45 AST 18 U/L (13-39) 11/04/19 05:45 ALT 8 U/L (7-52) 11/04/19 05:45 Alkaline Phosphatase 83 U/L (34-104) 11/04/19 05:45 Total Protein 6.3 g/dL (6.4-8.9) L 11/04/19 05:45 Albumin 3.3 g/dL (3.2-5.2) 11/04/19 05:45 Globulin 3.0 g/dL (2-4) 11/04/19 05:45 Albumin/Globulin Ratio 1.1 (1-3) 11/04/19 05:45 Lipase 43 U/L (11.0-82.0) 11/03/19 13:15 PEX General: Alert, in NAD. HEENT: Oropharynx clear. PERRLA. Head AT/NC. Heart: RRR. Lungs: CTAB. ABD: BS present. Soft, nontender and nondistended. No guarding or rebound tenderness. Extremities: Distal pulses intact bilaterally. No edema. Calves soft and nontender. Assessment and plan: 59 yo M with SBO. Appears to be resolving with conservative treatment. Will give clear liquids and order medication for headache. Continue IVF and ambulating.
[2019-11-04] MEDS ORDERED: Ibuprofen TAB* 600 MG PO PRN (09:44)
[2019-11-04] MEDS ORDERED: Acetaminophen TAB* 325 MG PO PRN (09:45)
--- NOTE | 2019-11-04 11:34 | PN ---
Subjective Date of Service: 11/04/19 Interval History: Patient had one large BM overnight [place] abdominal pain resolving. Complained of headache, frontal, it was like his usual headache. Objective Active Medications: Acetaminophen (Tylenol Tab*) 650 mg PO Q6H PRN PRN Reason: PAIN - MILD Last Admin: 11/04/19 10:58 Dose: 650 mg Enoxaparin Sodium (Lovenox(*)) 40 mg SUBCUT Q24H [facility] Last Admin: 11/03/19 15:50 Dose: 40 mg Sodium Chloride (Ns 0.9% 1000 Ml) 1,000 mls @ 100 mls/hr IV PER RATE [facility] Last Admin: 11/04/19 02:03 Dose: 100 mls/hr Ibuprofen (Motrin Tab*) 600 mg PO Q8H PRN PRN Reason: Moderate to mild pain Morphine Sulfate (Morphine Inj (Syringe))*) 2 mg IV Q4H PRN PRN Reason: PAIN - MILD Ondansetron HCl (Zofran Inj*) 4 mg IV Q6H PRN PRN Reason: NAUSEA Vital Signs - 8 hr 11/04/19 11/04/19 11/04/19 04:26 07:21 07:37 Temperature 97.9 F 98.9 F Pulse Rate 63 65 Respiratory 16 18 14 Rate Blood Pressure 128/58 127/60 (mmHg) O2 Sat by Pulse 98 98 Oximetry 11/04/19 11:27 Temperature 98.7 F Pulse Rate 67 Respiratory 16 Rate Blood Pressure 143/67 (mmHg) O2 Sat by Pulse 98 Oximetry Oxygen Devices in Use Now: None Exam: GEN: alert, comfortable, sitting on bed comfortably Heart: S2S2, no murmur Lung: clear on auscultation Abdomen: soft, non distended. LLQ tendernss on deep palpation, BS hyperactive. Extremity: no cyanosis, no edema. Neuro: alert, oriented, moving 4 limbs Result Diagrams: 11/04/19 05:45 11/04/19 05:45 EKG Data: EKG: sinus bradycardia, HR 59, left ventricular hypertrophy. Assess/Plan/Problems-Billing Assessment: 59 yo M history of coronary artery disease, two episodes of SBO in the past, back pain, anxiety and depression, presented to [facility] with upper abdominal pain for 1 day, found to have SBO in CTAP. - Patient Problems (1) Small bowel obstruction Current Visit: No Status: Acute Priority: High Onset Date: 11/23/14 Code (s): K56.69 - OTHER INTESTINAL OBSTRUCTION * DO NOT USE * SNOMED Code(s): 196571998 Comment: - improving, one episode of BM yesterday - escalate to clear liquid diet - appreciate surgical input - if patient able to tolerate diet, and continues to have BM, consider discharge late during the day (2) DVT prophylaxis Current Visit: No Status: Acute Priority: Medium Onset Date: 11/23/14 Code(s): IXW2337 - SNOMED Code(s): 492874485 Comment: - sc Lovenox (3) Full code status Current Visit: No Status: Acute Priority: Medium Onset Date: 11/23/14 Code(s): Z78.9 - OTHER SPECIFIED HEALTH STATUS SNOMED Code(s): 386470961 Status and Disposition: Inpatient Medicine Consider discharge late today Attestation Documenting Resident: Scott Supervising Physician: Mariana Attestation: This service has been performed in part by a resident under the direction of a teaching physician.IMariana, performed the service, or was physically present during the critical, or aguiar portions of the service, furnished by the resident. I participated in the management of the patient.
--- NOTE | 2019-11-04 12:54 | PN ---
Progress Note - Progress Note Date of Service: 11/04/19 Note: Patient seen and examined He is feeling much better-passing large amounts of flatus and had BM, no pain, no N/V Pex: Abd is soft and non-distended. No tenderness, NABS SBO-resolving--advance diet as tolerated, discharge when taking po well.
[2019-11-04] MEDS: Enoxaparin(*) 40 MG/0.4 ML SYR SUBCUT SCH (15:41)
[2019-11-05 07:52] VITALS: BP 133/72
--- NOTE | 2019-11-05 09:49 | DS ---
DISCHARGE SUMMARY: DATE OF ADMISSION: 11/03/19 DATE OF DISCHARGE: 11/05/19 PRINCIPAL DISCHARGE DIAGNOSIS: Small bowel obstruction. SECONDARY DISCHARGE DIAGNOSES: 1. Chronic back pain. 2. History of cataracts. 3. Anxiety. MEDICATIONS: For discharge: 1. Vitamin D3 2000 units daily. 2. Hydroxyzine 50 mg b.i.d. p.r.n. anxiety. PHYSICAL EXAMINATION AT DISCHARGE: Temperature 97.9, heart rate 60, respiratory rate 16, pulse ox 100% on room air, blood pressure 133/72. General : Alert, well- appearing young man, in no distress, resting comfortably in the bed. HEENT: Pupils equal, round, reactive to light. Oral mucosa is moist. Some facial plethora is noted: Chest: Regular rate and rhythm with no murmurs. His lungs are clear bilaterally. Abdomen: Soft, nontender, nondistended. No guarding or rebound. Bowel sounds are normoactive. No CVA tenderness. Extremities: No edema, rashes, or ulcers. PERTINENT STUDIES ON THIS HOSPITALIZATION: An abdomen and pelvis CT from showed diverted loops of small bowel proximally as well as dilated stomach. Findings are consistent with small bowel obstruction with the zone of transition in the right mid abdomen. CONSULTATIONS DURING THIS ADMISSION: Dr. Geneva Dominguez and Dr. Patrick Fernandes from General Surgery. HOSPITAL COURSE BY PROBLEM: 1. Small bowel obstruction. Mr. Flores has a history of small bowel obstruction in the past and seems to have a predisposition to SBOs. He did not require an NG tube, but was admitted to the surgical floor for observation and IV fluids. One day after admission, he had a bowel movement and his diet was slowly advanced starting with clear liquids. On the evening prior to discharge, he had a full diet and a subsequent bowel movement, and on the morning of discharge, he had no abdominal pain, no nausea, no diarrhea. He has been afebrile, and he feels he is at his baseline. He has tolerated a full breakfast this morning and is eager for discharge. He will follow up with his primary care physician, who is myself. 2. Chronic back pain. He had been taking Flexeril but did not feel that it was helpful and did not like the side effects, so this was discontinued. DISPOSITION: Mr. Flores is being discharged to home in [place] with PCP followup. CONDITION AT THE TIME OF DISCHARGE: Stable. [id number]/[facility] #: [id number] FELIX
== END 2019-11-05 11:20 | disposition home or self-care (01) | DRG 247 ==
LOC: ED 11:42 → SSU 14:42
PROVIDERS: ADMIT Internal Medicine; ATTEND Internal Medicine
DX: K56.609 Unspecified intestinal obstruction, unspecified as to partial versus complete obstruction (principal); M54.9 Dorsalgia, unspecified; G89.29 Other chronic pain; F41.9 Anxiety disorder, unspecified; I25.10 Atherosclerotic heart disease of native coronary artery without angina pectoris; F32.9 Major depressive disorder, single episode, unspecified; F17.210 Nicotine dependence, cigarettes, uncomplicated; I10 Essential (primary) hypertension; F10.11 Alcohol abuse, in remission; Z83.2 Family history of diseases of the blood and blood-forming organs and certain disorders involving the immune mechanism; Z79.899 Other long term (current) drug therapy
CPT/HCPCS: 36415; 74177; 80053; 83605; 83690; 85025; 93005; 96365; 96375; 99285; A9270-GY; J1650; J2270; J2405; Q9967

== ENCOUNTER 2020-03-05 21:08 | Inpatient (IN) ==
[2020-03-05] MEDS ORDERED: NS 0.9% 1000 ml BAG 1,000 ML IV ONE (22:23)
[2020-03-05] MEDS ORDERED: Ondansetron 4 mg VIAL 2 MG/ML 2 ml VIAL IV ONE (22:23)
[2020-03-05 22:39] LABS: ABS Basophils 0.2 10^3/ul (0-0.2); ABS Eosinophils 0.1 10^3/ul (0-0.6); ABS Lymphocytes 1.9 10^3/ul (1.0-4.8); ABS Monocytes 0.9 10^3/ul (0-0.8); Eosinophil % 0.3 %; Hematocrit 47 % (42-52); Hemoglobin 16.5 g/dL (14.0-18.0); Mean Corpuscular HGB Conc 35 g/dL (31-36); Mean Corpuscular Hemoglobin 32 pg (27-31); Mean Corpuscular Volume 91 fL (80-94); Mean Platelet Volume 9.1 fL (7.4-10.4); Platelet Count 228 10^3/uL (150-450); Red Blood Count 5.13 10^6 /uL (4.18-5.48); Red Cell Distribution Width 14 % (10-15)
[2020-03-05] MEDS ORDERED: Ondansetron 4 mg VIAL 2 MG/ML 2 ml VIAL ONE (22:42)
[2020-03-05] MEDS ORDERED: Morphine 4 MG/ML VIAL (1 ml) ONE (22:42)
[2020-03-05] MEDS ORDERED: Morphine 4 MG/ML VIAL (1 ml) IV ONE (22:45)
[2020-03-05 22:46] LABS: INR 0.95 (0.82-1.09)
[2020-03-05 22:55] LABS: Albumin 4.9 g/dL (3.2-5.2); Albumin/Globulin Ratio 1.4 (1-3); C Reactive Protein 1.46 mg/L (<8.01); Calcium 10.8 mg/dL (8.6-10.3); EGFR African American 92.2 (>60); EGFR Non-African American 76.2 (>60); Globulin 3.6 g/dL (2-4); Potassium 4.1 mmol/L (3.5-5.0); Total Bilirubin 0.5 mg/dL (0.2-1.0); Total Protein 8.5 g/dL (6.4-8.9)
[2020-03-06] MEDS ORDERED: Iohexol 300 (CONTRAST) 10 ML SDV IV ONE (00:26)
[2020-03-06] MEDS ORDERED: Ondansetron 4 mg VIAL 2 MG/ML 2 ml VIAL IV ONE (02:10)
[2020-03-06] MEDS ORDERED: Morphine 4 MG/ML VIAL (1 ml) IV ONE (02:38)
[2020-03-06] MEDS ORDERED: Morphine 2 MG/ML SYRINGE IV PRN (03:13)
[2020-03-06] MEDS ORDERED: Ondansetron 4 mg VIAL 2 MG/ML 2 ml VIAL IV PRN (03:13)
[2020-03-06] MEDS: NS 0.9% 1000 ml BAG 1,000 ML IV SCH ×3 (03:37→19:16)
[2020-03-07] MEDS: NS 0.9% 1000 ml BAG 1,000 ML IV SCH (01:25)
[2020-03-07 08:40] LABS: Hematocrit 37 % (42-52); Hemoglobin 13.3 g/dL (14.0-18.0); Mean Corpuscular HGB Conc 35 g/dL (31-36); Mean Corpuscular Hemoglobin 33 pg (27-31); Mean Corpuscular Volume 92 fL (80-94); Mean Platelet Volume 9.5 fL (7.4-10.4); Platelet Count 165 10^3/uL (150-450); Red Blood Count 4.07 10^6 /uL (4.18-5.48); Red Cell Distribution Width 14 % (10-15); White Blood Count 7.9 10^3/uL (3.5-10.8)
[2020-03-07 08:43] LABS: BUN/Creatinine Ratio 13.8 (8-20); Calcium 8.1 mg/dL (8.6-10.3); EGFR African American 119.3 (>60); EGFR Non-African American 98.6 (>60); Potassium 3.8 mmol/L (3.5-5.0)
[2020-03-07 12:15] VITALS: BP 135/60
== END 2020-03-07 14:26 | disposition home or self-care (01) | DRG 247 ==
LOC: ED 21:08 → SSU 03-06 03:13 → ED 03-06 04:07
PROVIDERS: ADMIT Nurse Practitioner Family; ATTEND Internal Medicine

== ENCOUNTER 2020-03-09 18:16 | Observation (INO) ==
[2020-03-09] MEDS ORDERED: Al Hydrox/Mg Hydrox/Simet LIQ 30 ML UDC PO ONE (18:53)
[2020-03-09 19:26] LABS: ABS Basophils 0.1 10^3/ul (0-0.2); ABS Eosinophils 0.1 10^3/ul (0-0.6); ABS Lymphocytes 1.4 10^3/ul (1.0-4.8); ABS Monocytes 0.7 10^3/ul (0-0.8); ABS Neutrophils 6.5 10^3/ul (1.5-7.7); Hematocrit 41 % (42-52); Hemoglobin 14.5 g/dL (14.0-18.0); Lymphocyte % 16.1 %; Mean Corpuscular HGB Conc 35 g/dL (31-36); Mean Corpuscular Hemoglobin 32 pg (27-31); Mean Corpuscular Volume 90 fL (80-94); Mean Platelet Volume 8.9 fL (7.4-10.4); Platelet Count 213 10^3/uL (150-450); Red Blood Count 4.56 10^6 /uL (4.18-5.48); Red Cell Distribution Width 14 % (10-15); White Blood Count 8.8 10^3/uL (3.5-10.8)
[2020-03-09 19:49] LABS: Potassium 3.6 mmol/L (3.5-5.0)
[2020-03-09 19:50] LABS: Albumin 4.4 g/dL (3.2-5.2); Albumin/Globulin Ratio 1.5 (1-3); BUN/Creatinine Ratio 15.6 (8-20); Calcium 9.9 mg/dL (8.6-10.3); EGFR African American 104.2 (>60); EGFR Non-African American 86.1 (>60); Globulin 2.9 g/dL (2-4); Total Bilirubin 0.7 mg/dL (0.2-1.0); Total Protein 7.3 g/dL (6.4-8.9)
[2020-03-09] MEDS ORDERED: Iohexol 300 (CONTRAST) 10 ML SDV IV ONE (22:08)
[2020-03-10] MEDS ORDERED: Morphine 2 MG/ML SYRINGE IV PRN (00:09)
[2020-03-10] MEDS: NS 0.9% 1000 ml BAG 1,000 ML IV SCH ×3 (03:21→18:30)
[2020-03-10] MEDS: Pantoprazole VIAL 40 MG VIAL IV SCH (03:22)
[2020-03-11] MEDS: Pantoprazole VIAL 40 MG VIAL IV SCH (01:42)
[2020-03-11] MEDS: NS 0.9% 1000 ml BAG 1,000 ML IV SCH (01:47)
[2020-03-11 05:17] LABS: ABS Basophils 0.1 10^3/ul (0-0.2); ABS Eosinophils 0.2 10^3/ul (0-0.6); ABS Monocytes 0.7 10^3/ul (0-0.8); ABS Neutrophils 4.9 10^3/ul (1.5-7.7); Eosinophil % 2.1 %; Hematocrit 39 % (42-52); Hemoglobin 13.5 g/dL (14.0-18.0); Lymphocyte % 25.7 %; Mean Corpuscular HGB Conc 35 g/dL (31-36); Mean Corpuscular Hemoglobin 32 pg (27-31); Mean Corpuscular Volume 92 fL (80-94); Mean Platelet Volume 9.4 fL (7.4-10.4); Nucleated Red Blood Cells % 0.1; Platelet Count 179 10^3/uL (150-450); Red Cell Distribution Width 14 % (10-15); White Blood Count 7.8 10^3/uL (3.5-10.8)
[2020-03-11 05:39] LABS: Calcium 8.4 mg/dL (8.6-10.3); EGFR African American 119.3 (>60); EGFR Non-African American 98.6 (>60); Potassium 3.6 mmol/L (3.5-5.0)
[2020-03-11 08:27] VITALS: BP 127/60
[2020-03-11] MEDS ORDERED: Bupivacaine 0.25% SDV 30 ML ONE (10:06)
[2020-03-11] MEDS ORDERED: Glycopyrrolate IV 0.2 MG/ML 1 ML VIAL ONE (10:32)
[2020-03-11] MEDS ORDERED: Propofol 10 MG/ML 20 ML BTL ONE (10:32)
[2020-03-11] MEDS ORDERED: Succinylcholine 200 mg VIAL 20 mg/ml 10 ml VIAL (200 mg) ONE (10:32)
[2020-03-11] MEDS ORDERED: Rocuronium 50 mg VIAL 10 mg/ml 5 ml VIAL (50 mg) ONE (10:33)
[2020-03-11] MEDS ORDERED: fentaNYL 100 mcg/2 ml 50 MCG/ML VIAL ONE (10:40)
[2020-03-11] MEDS ORDERED: Midazolam 2 mg/2 ml VIAL 1 mg/ml 2 ml VIAL (2 mg) ONE (10:46)
== END 2020-03-11 13:45 | disposition home or self-care (01) | DRG 247 ==
LOC: ED 18:16 → SSU 03-10 00:09 → INTOOBSV 03-10 00:09 → SSU 03-10 03:00
PROVIDERS: ADMIT Nurse Practitioner Family; ATTEND Internal Medicine

== ENCOUNTER 2020-12-03 16:16 | Inpatient (IN) ==
[2020-12-03] MEDS ORDERED: Al Hydrox/Mg Hydrox/Simet LIQ 30 ML UDC PO ONE (16:32)
[2020-12-03] MEDS ORDERED: Ondansetron ODT 4 mg TAB 4 MG TAB SL ONE (17:10)
[2020-12-03 18:06] LABS: ABS Basophils 0.1 10^3/ul (0-0.2); ABS Eosinophils 0.1 10^3/ul (0-0.6); ABS Lymphocytes 2.1 10^3/ul (1.0-4.8); ABS Monocytes 0.6 10^3/ul (0-0.8); ABS Neutrophils 6.1 10^3/ul (1.5-7.7); Eosinophil % 1.2 %; Hematocrit 49 % (42-52); Hemoglobin 17.2 g/dL (14.0-18.0); Lymphocyte % 23.4 %; Mean Corpuscular HGB Conc 35 g/dL (31-36); Mean Corpuscular Hemoglobin 32 pg (27-31); Mean Corpuscular Volume 92 fL (80-94); Mean Platelet Volume 9.2 fL (7.4-10.4); Platelet Count 238 10^3/uL (150-450); Red Blood Count 5.32 10^6 /uL (4.18-5.48); Red Cell Distribution Width 14 % (10-15)
[2020-12-03 18:24] LABS: ALT 23 U/L (7-52); AST 29 U/L (13-39); Albumin 4.7 g/dL (3.2-5.2); Albumin/Globulin Ratio 1.4 (1-3); Alkaline Phosphatase 87 U/L (34-104); Anion Gap 10 mmol/L (2-11); Blood Urea Nitrogen 13 mg/dL (6-24); C Reactive Protein < 1.00 mg/L (<8.01); CO2 Carbon Dioxide 26 mmol/L (22-32); Calcium 10.2 mg/dL (8.6-10.3); Chloride 100 mmol/L (101-111); EGFR African American 99.9 (>60); EGFR Non-African American 82.6 (>60); Globulin 3.4 g/dL (2-4); Glucose 98 mg/dL (70-100); Lipase 15 U/L (11.0-82.0); Potassium 3.9 mmol/L (3.5-5.0); Sodium 136 mmol/L (135-145); Total Protein 8.1 g/dL (6.4-8.9)
[2020-12-03] MEDS ORDERED: Iohexol 300 (CONTRAST) 10 ML SDV IV ONE (19:59)
[2020-12-03] MEDS ORDERED: NS 0.9% 1000 ml BAG 1,000 ML IV ONE (22:55)
[2020-12-03] MEDS ORDERED: Ondansetron 4 mg VIAL 2 MG/ML 2 ml VIAL IV ONE (23:01)
[2020-12-03] MEDS ORDERED: Ondansetron 4 mg VIAL 2 MG/ML 2 ml VIAL IV PRN (23:40)
[2020-12-04] MEDS: D5LR 1000 ml BAG 1,000 ML IV SCH ×2 (02:04→10:47)
[2020-12-04] MEDS: Enoxaparin 40 MG/0.4 ML SYR SUBCUT SCH (02:10)
[2020-12-04 05:40] LABS: ABS Lymphocytes 1.5 10^3/ul (1.0-4.8); ABS Monocytes 0.8 10^3/ul (0-0.8); ABS Neutrophils 8.7 10^3/ul (1.5-7.7); Hematocrit 49 % (42-52); Hemoglobin 16.9 g/dL (14.0-18.0); Lymphocyte % 13.5 %; Mean Corpuscular HGB Conc 35 g/dL (31-36); Mean Corpuscular Hemoglobin 32 pg (27-31); Mean Corpuscular Volume 93 fL (80-94); Mean Platelet Volume 9.5 fL (7.4-10.4); Platelet Count 240 10^3/uL (150-450); Red Blood Count 5.22 10^6 /uL (4.18-5.48); Red Cell Distribution Width 14 % (10-15)
[2020-12-04 05:59] LABS: Calcium 9.7 mg/dL (8.6-10.3); EGFR Non-African American 76.9 (>60); Potassium 3.9 mmol/L (3.5-5.0)
[2020-12-04 07:15] LABS: Urine Appearance Clear; Urine Bacteria Absent (Absent); Urine Bilirubin Negative (Negative); Urine Blood Negative (Negative); Urine Color Yellow; Urine Glucose Negative (Negative); Urine Ketones 1+ (Negative); Urine Nitrite Negative (Negative); Urine Protein 2+(100 mg/dL) (Negative); Urine Red Blood Cell 2+(6-10/hpf) (Absent); Urine Urobilinogen Negative (Negative); Urine White Blood Cell Absent (Absent)
[2020-12-04 08:12] LABS: Urine Specific Gravity > 1.060 (1.002-1.030)
[2020-12-04] MEDS: Nicotine PATCH 21 MG/24 HR PATCH TRANSDERM SCH (10:47)
[2020-12-05] MEDS: Enoxaparin 40 MG/0.4 ML SYR SUBCUT SCH ×2 (00:48→23:56)
[2020-12-05 05:07] LABS: ABS Basophils 0.1 10^3/ul (0-0.2); ABS Eosinophils 0.2 10^3/ul (0-0.6); ABS Lymphocytes 2.9 10^3/ul (1.0-4.8); ABS Monocytes 0.7 10^3/ul (0-0.8); ABS Neutrophils 3.8 10^3/ul (1.5-7.7); Eosinophil % 2.7 %; Hematocrit 40 % (42-52); Hemoglobin 13.8 g/dL (14.0-18.0); Lymphocyte % 37.8 %; Mean Corpuscular HGB Conc 35 g/dL (31-36); Mean Corpuscular Hemoglobin 32 pg (27-31); Mean Corpuscular Volume 92 fL (80-94); Mean Platelet Volume 9.6 fL (7.4-10.4); Nucleated Red Blood Cells % 0.1; Platelet Count 190 10^3/uL (150-450); Red Blood Count 4.33 10^6 /uL (4.18-5.48); Red Cell Distribution Width 13 % (10-15); White Blood Count 7.7 10^3/uL (3.5-10.8)
[2020-12-05 05:30] LABS: Calcium 8.4 mg/dL (8.6-10.3); EGFR African American 115.6 (>60); EGFR Non-African American 95.5 (>60); Potassium 3.7 mmol/L (3.5-5.0)
[2020-12-05] MEDS: Nicotine PATCH 21 MG/24 HR PATCH TRANSDERM SCH (08:02)
[2020-12-06] MEDS: Nicotine PATCH 21 MG/24 HR PATCH TRANSDERM SCH (08:25)
[2020-12-07] MEDS: Enoxaparin 40 MG/0.4 ML SYR SUBCUT SCH (00:07)
[2020-12-07] MEDS: Nicotine PATCH 21 MG/24 HR PATCH TRANSDERM SCH (07:57)
[2020-12-07 10:59] VITALS: BP 139/62
== END 2020-12-07 12:19 | disposition home or self-care (01) | DRG 247 ==
LOC: ED 16:16 → SSU 23:33
PROVIDERS: ADMIT Student in an Organized Health Care Education/Training Program; ATTEND Student in an Organized Health Care Education/Training Program

== ENCOUNTER 2020-12-11 13:12 | Observation (INO) ==
[2020-12-11] MEDS ORDERED: NS 0.9% 1000 ml BAG 1,000 ML IV ONE (13:43)
[2020-12-11] MEDS ORDERED: Morphine 4 MG/ML VIAL (1 ml) IV ONE (14:05)
[2020-12-11 14:12] LABS: ABS Basophils 0.1 10^3/ul (0-0.2); ABS Eosinophils 0.2 10^3/ul (0-0.6); ABS Lymphocytes 1.7 10^3/ul (1.0-4.8); ABS Monocytes 0.7 10^3/ul (0-0.8); Eosinophil % 2.7 %; Hematocrit 44 % (42-52); Hemoglobin 15.5 g/dL (14.0-18.0); Lymphocyte % 26.2 %; Mean Corpuscular HGB Conc 36 g/dL (31-36); Mean Corpuscular Hemoglobin 32 pg (27-31); Mean Corpuscular Volume 91 fL (80-94); Mean Platelet Volume 9.4 fL (7.4-10.4); Nucleated Red Blood Cells % 0.1; Platelet Count 222 10^3/uL (150-450); Red Blood Count 4.78 10^6 /uL (4.18-5.48); Red Cell Distribution Width 14 % (10-15); White Blood Count 6.6 10^3/uL (3.5-10.8)
[2020-12-11 14:57] LABS: Albumin 4.5 g/dL (3.2-5.2); Albumin/Globulin Ratio 1.5 (1-3); Calcium 9.9 mg/dL (8.6-10.3); EGFR African American 120.7 (>60); EGFR Non-African American 99.7 (>60); Potassium 4.2 mmol/L (3.5-5.0); Total Bilirubin 0.4 mg/dL (0.2-1.0); Total Protein 7.5 g/dL (6.4-8.9)
[2020-12-11] MEDS ORDERED: Ondansetron 4 mg VIAL 2 MG/ML 2 ml VIAL IV PRN (16:15)
[2020-12-11] MEDS ORDERED: Morphine 2 MG/ML SYRINGE IV PRN (16:19)
[2020-12-11] MEDS: D5W 1/2 NS KCl 20 meq 1000 ml 1,000 ML IV SCH (17:52)
[2020-12-11] MEDS: Heparin 5000 UNITS/ML 1 mL VIAL SUBCUT SCH (22:44)
[2020-12-12] MEDS: Heparin 5000 UNITS/ML 1 mL VIAL SUBCUT SCH ×3 (05:24→20:35)
[2020-12-12] MEDS: D5W 1/2 NS KCl 20 meq 1000 ml 1,000 ML IV SCH ×2 (07:21→21:24)
[2020-12-13] MEDS: Heparin 5000 UNITS/ML 1 mL VIAL SUBCUT SCH ×2 (06:06→13:45)
[2020-12-13] MEDS ORDERED: Nicotine PATCH 14 MG/24 HR PATCH TRANSDERM SCH (15:00)
[2020-12-13 16:29] VITALS: BP 159/80
== END 2020-12-13 17:50 | disposition home or self-care (01) ==
LOC: MED 13:12 → ED 13:12 → MED 17:23
PROVIDERS: ADMIT Hospitalist; ATTEND Hospitalist

== ENCOUNTER 2021-10-04 19:17 | Observation (INO) ==
[2021-10-04 20:48] LABS: ABS Basophils 0.1 10^3/ul (0-0.2); ABS Lymphocytes 0.9 10^3/ul (1.0-4.8); ABS Monocytes 0.5 10^3/ul (0-0.8); Eosinophil % 0.4 %; Hematocrit 42 % (42-52); Hemoglobin 14.1 g/dL (14.0-18.0); Lymphocyte % 7.4 %; Mean Corpuscular HGB Conc 33 g/dL (31-36); Mean Corpuscular Hemoglobin 30 pg (27-31); Mean Corpuscular Volume 91 fL (80-94); Mean Platelet Volume 10.2 fL (7.4-10.4); Platelet Count 176 10^3/uL (150-450); Red Blood Count 4.64 10^6 /uL (4.18-5.48); Red Cell Distribution Width 14 % (10-15); White Blood Count 12.5 10^3/uL (3.5-10.8)
[2021-10-04 21:32] LABS: Albumin 5.1 g/dL (3.2-5.2); CO2 Carbon Dioxide 24 mmol/L (22-32); Calcium 10.2 mg/dL (8.6-10.3); Chloride 101 mmol/L (101-111); Sodium 133 mmol/L (135-145)
[2021-10-04 21:38] LABS: ALT 21 U/L (7-52); Albumin/Globulin Ratio 1.5 (1-3); Alkaline Phosphatase 87 U/L (35-149); Blood Urea Nitrogen 15 mg/dL (6-24); C Reactive Protein < 1.00 mg/L (<8.01); Globulin 3.4 g/dL (2-4); Glucose 112 mg/dL (70-100); Lipase 24 U/L (11.0-82.0); Total Protein 8.5 g/dL (6.4-8.9); eGFR CKD-EPI 96.6 (>60)
[2021-10-04 21:56] LABS: Anion Gap 8 mmol/L (2-11)
[2021-10-04] MEDS ORDERED: Iohexol 300 (CONTRAST) 10 ML SDV IV ONE (22:07)
[2021-10-04 22:34] LABS: Urine Appearance Clear; Urine Bilirubin Negative (Negative); Urine Blood 1+ (Negative); Urine Color Straw; Urine Glucose Negative (Negative); Urine Ketones Negative (Negative); Urine Nitrite Negative (Negative); Urine Protein Negative (Negative); Urine Urobilinogen Negative (Negative)
[2021-10-04 22:40] LABS: Urine Bacteria Absent (Absent); Urine Red Blood Cell Trace(0-2/hpf) (Absent); Urine Squamous Epithelial Cell Present (Absent); Urine White Blood Cell Trace(0-5/hpf) (Absent)
[2021-10-04 23:07] LABS: Potassium Redraw 3.7 mmol/L (3.5-5.0)
[2021-10-04] MEDS ORDERED: Lactated Ringers 1000 ml BAG 1,000 ML IV ONE (23:30)
[2021-10-05] MEDS: Nicotine PATCH 14 MG/24 HR PATCH TRANSDERM SCH ×2 (03:51→07:49)
[2021-10-05] MEDS: Heparin 5000 UNITS/ML 1 mL VIAL SUBCUT SCH ×2 (05:15→13:56)
[2021-10-05 14:37] VITALS: BP 131/78
== END 2021-10-05 15:50 | disposition home or self-care (01) ==
LOC: ED 19:17 → EDHOLD 10-05 00:09 → INTOOBSV 10-05 00:09 → SUATTDRO 10-05 00:09 → MED 10-05 03:04
PROVIDERS: ADMIT Internal Medicine; ATTEND Internal Medicine